=== PATIENT | female | born 1980 | race Two or more races ===

== ENCOUNTER → 2018-06-30 | Outpatient (CLI) | payer MEDICAID ==
[2018-06-30 14:08] LABS: ABSOLUTE EOSINOPHILS # (AUTO) 0.1 10^3/uL (0.0-0.6); ABSOLUTE LYMPHOCYTES (AUTO) 1.9 10^3/uL (0.5-4.7); ABSOLUTE MONOCYTES (AUTO) 0.5 10^3/uL (0.1-1.4); ABSOLUTE NEUT (AUTO) 5.5 10^3/uL (1.7-8.2); BASOPHILS % (AUTO) 0.2 % (0-2); EOSINOPHILS % (AUTO) 1.4 % (0-6); HEMATOCRIT 44.6 % (36.0-47.0); HEMOGLOBIN 15.2 g/dL (12.0-15.5); LYMPHOCYTES % (AUTO) 23.5 % (13-45); MEAN CORPUSCULAR HEMOGLOBIN 32.6 pg (27.0-33.4); MEAN CORPUSCULAR HGB CONC 34.1 g/dL (32.0-36.0); MEAN CORPUSCULAR VOLUME 95 fl (80-97); PLATELET COUNT 276 10^3/uL (150-450); RED BLOOD COUNT 4.68 10^6/uL (3.72-5.28); RED CELL DISTRIBUTION WIDTH 13.6 % (11.5-14.0); SEGMENTED NEUTROPHILS % (AUTO) 68.9 % (42-78); TOTAL CELLS COUNTED % (AUTO) 100 %; WHITE BLOOD COUNT 7.9 10^3/uL (4.0-10.5)
[2018-06-30 14:32] LABS: ALANINE AMINOTRANSFERASE 28 U/L (9-52); ALBUMIN 4.1 g/dL (3.5-5.0); ALKALINE PHOSPHATASE 107 U/L (38-126); ANION GAP 13 (5-19); ASPARTATE AMINO TRANSFERASE 18 U/L (14-36); BILIRUBIN,DIRECT 0.3 mg/dL (0.0-0.4); BILIRUBIN,TOTAL 0.6 mg/dL (0.2-1.3); BLOOD UREA NITROGEN 15 mg/dL (7-20); CALCIUM 9.6 mg/dL (8.4-10.2); CARBON DIOXIDE 26 mmol/L (22-30); CHLORIDE 103 mmol/L (98-107); GLUCOSE 118 mg/dL (75-110); SODIUM 142.2 mmol/L (137-145); TOTAL PROTEIN 7.5 g/dL (6.3-8.2)
--- NOTE | 2018-06-30 14:54 | RADIOLOGY REPORT (SQ) ---
EXAM DESCRIPTION: CHEST SINGLE VIEW COMPLETED DATE/TIME: 06/30/2018 2:43 pm REASON FOR STUDY: HYPOXEMIA COMPARISON: AP chest 09/11/2013, 11/02/2012, 01/12/2010 EXAM PARAMETERS: NUMBER OF VIEWS: One view. TECHNIQUE: Single frontal radiographic view of the chest acquired. RADIATION DOSE: NA LIMITATIONS: The thorax is distorted by profound convex leftward lower thoracic curvature FINDINGS: LUNGS AND PLEURA: Thorax is distorted by convex leftward thoracic curvature. Lungs are gr ossly clear. No pleural effusion or pneumothorax. MEDIASTINUM AND HILAR STRUCTURES: No masses. Contour normal. HEART AND VASCULAR STRUCTURES: Heart normal in size. Normal vasculature. BONES: No acute findings. HARDWARE: None in the chest. OTHER: No other significant finding. IMPRESSION: No acute findings TECHNICAL DOCUMENTATION: JOB ID: [id number] [employer]- All Rights Reserved Reading location - IP/workstation name: [email or web address]
== END ==
LOC: OD 13:23
PROVIDERS: ATTEND Specialist
DX: R09.02 Hypoxemia (principal); G40.909 Epilepsy, unspecified, not intractable, without status epilepticus; Z79.899 Other long term (current) drug therapy
CPT/HCPCS: 36415; 71045; 80053; 80203; 85025

== ENCOUNTER → 2018-08-01 | Outpatient (CLI) | payer MEDICAID ==
[2018-08-01 16:21] LABS: ABSOLUTE BASOPHILS # (AUTO) 0.1 10^3/uL (0.0-0.2); ABSOLUTE EOSINOPHILS # (AUTO) 0.1 10^3/uL (0.0-0.6); ABSOLUTE LYMPHOCYTES (AUTO) 1.9 10^3/uL (0.5-4.7); ABSOLUTE MONOCYTES (AUTO) 0.4 10^3/uL (0.1-1.4); ABSOLUTE NEUT (AUTO) 6.3 10^3/uL (1.7-8.2); BASOPHILS % (AUTO) 0.9 % (0-2); EOSINOPHILS % (AUTO) 1.1 % (0-6); HEMATOCRIT 45.5 % (36.0-47.0); HEMOGLOBIN 15.3 g/dL (12.0-15.5); LYMPHOCYTES % (AUTO) 21.9 % (13-45); MEAN CORPUSCULAR HEMOGLOBIN 32.5 pg (27.0-33.4); MEAN CORPUSCULAR HGB CONC 33.7 g/dL (32.0-36.0); MEAN CORPUSCULAR VOLUME 96 fl (80-97); MONOCYTES % (AUTO) 4.7 % (3-13); PLATELET COUNT 246 10^3/uL (150-450); RED BLOOD COUNT 4.72 10^6/uL (3.72-5.28); RED CELL DISTRIBUTION WIDTH 13.4 % (11.5-14.0); SEGMENTED NEUTROPHILS % (AUTO) 71.4 % (42-78); TOTAL CELLS COUNTED % (AUTO) 100 %; WHITE BLOOD COUNT 8.8 10^3/uL (4.0-10.5)
--- NOTE | 2018-08-01 16:25 | RADIOLOGY REPORT (SQ) ---
EXAM DESCRIPTION: CHEST SINGLE VIEW COMPLETED DATE/TIME: 08/01/2018 4:11 pm REASON FOR STUDY: COUGH COMPARISON: 06/30/2018 EXAM PARAMETERS: NUMBER OF VIEWS: One view. TECHNIQUE: Single frontal radiographic view of the chest acquired. RADIATION DOSE: NA LIMITATIONS: Study is limited due to the deformities of the bony thorax. Study is also limited as th e patient has made a shallow inspiration. FINDINGS: LUNGS AND PLEURA: No obvious airspace consolidations or pleural effusions are identified. MEDIASTINUM AND HILAR STRUCTURES: The configuration of the heart mediastinal structures is unchanged. HEART AND VASCULAR STRUCTURES: The configuration of the heart mediastinal structures is unchanged. BONES: No acute findings. HARDWARE: None in the chest. OTHER: No other significant finding. IMPRESSION: Limited study due to the bony deformity of the bony thorax. No significant interval kary nges compared to the previous study. No definite acute findings. TECHNICAL DOCUMENTATION: JOB ID: [id number] [employer]- All Rights Reserved Reading location - IP/workstation name: [email or web address]
[2018-08-01 16:35] LABS: A TYPE INFLUENZA AG NEGATIVE (NEGATIVE); B INFLUENZA AG NEGATIVE (NEGATIVE)
[2018-08-01 16:43] LABS: ANION GAP 9 (5-19); BLOOD UREA NITROGEN 8 mg/dL (7-20); CALCIUM 9.2 mg/dL (8.4-10.2); CARBON DIOXIDE 26 mmol/L (22-30); CHLORIDE 102 mmol/L (98-107); GLUCOSE 102 mg/dL (75-110); POTASSIUM 3.9 mmol/L (3.6-5.0); SODIUM 136.9 mmol/L (137-145)
== END ==
LOC: OD 15:43
PROVIDERS: ATTEND Family Medicine
DX: J39.9 Disease of upper respiratory tract, unspecified (principal); R05 Cough
CPT/HCPCS: 36415; 71045; 80048; 85025; 87804

== ENCOUNTER → 2018-10-11 | Outpatient (CLI) | payer MEDICAID ==
--- NOTE | 2018-10-11 17:13 | RADIOLOGY REPORT (SQ) ---
EXAM DESCRIPTION: CHEST SINGLE VIEW COMPLETED DATE/TIME: 10/11/2018 5:05 pm REASON FOR STUDY: FLU-LIKE SYMPTOMS COMPARISON: 08/01/2018 EXAM PARAMETERS: NUMBER OF VIEWS: One view. TECHNIQUE: Single frontal radiographic view of the chest acquired. RADIATION DOSE: NA LIMITATIONS: None. FINDINGS: LUNGS AND PLEURA: Extensive left-sided airspace disease new from prior study. MEDIASTINUM AND HILAR STRUCTURES: No masses. Contour normal. HEART AND VASCULAR STRUCTURES: Unchanged. BONES: Unchanged. HARDWARE: None in the chest. OTHER: No other significant finding. IMPRESSION: Extensive left-sided airspace disease new from prior study. TECHNICAL DOCUMENTATION: JOB ID: [id number] [employer]- All Rights Reserved Reading location - IP/workstation name: [email or web address]
[2018-10-11 18:02] LABS: ALANINE AMINOTRANSFERASE 34 U/L (9-52); ALBUMIN 4.3 g/dL (3.5-5.0); ALKALINE PHOSPHATASE 91 U/L (38-126); ANION GAP 12 (5-19); ASPARTATE AMINO TRANSFERASE 28 U/L (14-36); BILIRUBIN,DIRECT 0.4 mg/dL (0.0-0.4); BILIRUBIN,TOTAL 0.4 mg/dL (0.2-1.3); BLOOD UREA NITROGEN 8 mg/dL (7-20); CALCIUM 9.4 mg/dL (8.4-10.2); CARBON DIOXIDE 29 mmol/L (22-30); CHLORIDE 96 mmol/L (98-107); GLUCOSE 118 mg/dL (75-110); POTASSIUM 4.2 mmol/L (3.6-5.0); SODIUM 137.4 mmol/L (137-145); TOTAL PROTEIN 7.5 g/dL (6.3-8.2)
[2018-10-11 18:04] LABS: HEMATOCRIT 45.5 % (36.0-47.0); HEMOGLOBIN 15.6 g/dL (12.0-15.5); MEAN CORPUSCULAR HEMOGLOBIN 32.5 pg (27.0-33.4); MEAN CORPUSCULAR HGB CONC 34.2 g/dL (32.0-36.0); MEAN CORPUSCULAR VOLUME 95 fl (80-97); PLATELET COUNT 255 10^3/uL (150-450); RED BLOOD COUNT 4.79 10^6/uL (3.72-5.28); RED CELL DISTRIBUTION WIDTH 13.2 % (11.5-14.0); WHITE BLOOD COUNT 8.2 10^3/uL (4.0-10.5)
[2018-10-11 18:46] LABS: ABSOLUTE LYMPHOCYTES# (MANUAL) 1.4 10^3/uL (0.5-4.7); ABSOLUTE MONOCYTES # (MANUAL) 1.6 10^3/uL (0.1-1.4); BASOPHILS % (MANUAL) 0 % (0-2); EOSINOPHILS % (MANUAL) 2 % (0-6); LYMPHOCYTES % (MANUAL) 13 % (13-45); MONOCYTES % (MANUAL) 20 % (3-13); SEGMENTED NEUTROPHILS % (MAN) 61 % (42-78); TOTAL CELLS COUNTED 100
[2018-10-11 18:48] LABS: OVALOCYTES SLIGHT; POIKILOCYTOSIS SLIGHT; TOXIC GRANULATION SLIGHT; TOXIC VACUOLATION PRESENT
[2018-10-11 18:49] LABS: PLATELET COMMENT ADEQUATE
== END ==
LOC: OD 16:37
PROVIDERS: ATTEND Family Medicine
DX: J98.4 Other disorders of lung (principal); R68.89 Other general symptoms and signs
CPT/HCPCS: 36415; 71045; 80053; 85025

== ENCOUNTER 2018-10-13 10:05 | Inpatient (IN) | payer MEDICAID ==
[2018-10-13] MEDS ORDERED: NORMAL SALINE 1000 ML 2,000 ML IV ONE (10:08)
[2018-10-13] MEDS ORDERED: RINGERS SOLUTION,LACTATED 500 ML IV ONE (10:24)
[2018-10-13] MEDS ORDERED: IPRATROPIUM/ALBUTEROL 0.5-2.5 MG/3 ML AMPUL NEB ONE (10:26)
[2018-10-13] MEDS ORDERED: ACETAMINOPHEN 650 MG SUPP.RECT PR ONE (10:34)
[2018-10-13 11:15] LABS: VENOUS BLOOD BASE EXCESS 1.1 mmol/L; VENOUS BLOOD HCO3 25.9 mmol/L (20-32); VENOUS BLOOD PCO2 41.8 mmHg (35-63); VENOUS BLOOD PH 7.41 (7.30-7.42)
[2018-10-13 11:29] LABS: ALANINE AMINOTRANSFERASE 38 U/L (9-52); ALBUMIN 3.9 g/dL (3.5-5.0); ALKALINE PHOSPHATASE 101 U/L (38-126); ANION GAP 15 (5-19); ASPARTATE AMINO TRANSFERASE 28 U/L (14-36); BILIRUBIN,DIRECT 0.2 mg/dL (0.0-0.4); BILIRUBIN,TOTAL 0.2 mg/dL (0.2-1.3); BLOOD UREA NITROGEN 8 mg/dL (7-20); CALCIUM 8.9 mg/dL (8.4-10.2); CARBON DIOXIDE 24 mmol/L (22-30); CHLORIDE 97 mmol/L (98-107); GLUCOSE 143 mg/dL (75-110); POTASSIUM 3.8 mmol/L (3.6-5.0); SODIUM 135.8 mmol/L (137-145); TOTAL PROTEIN 6.9 g/dL (6.3-8.2)
[2018-10-13 12:01] LABS: HEMATOCRIT 41.5 % (36.0-47.0); HEMOGLOBIN 14.1 g/dL (12.0-15.5); MEAN CORPUSCULAR HEMOGLOBIN 32.5 pg (27.0-33.4); MEAN CORPUSCULAR HGB CONC 33.9 g/dL (32.0-36.0); MEAN CORPUSCULAR VOLUME 96 fl (80-97); PLATELET COUNT 230 10^3/uL (150-450); RED BLOOD COUNT 4.33 10^6/uL (3.72-5.28); RED CELL DISTRIBUTION WIDTH 13.2 % (11.5-14.0); WHITE BLOOD COUNT 4.9 10^3/uL (4.0-10.5)
[2018-10-13 12:04] LABS: INTERNATIONAL RATION (INR) 0.85; PROTHROMBIN TIME 12.1 SEC (11.4-15.4)
[2018-10-13 12:29] LABS: ABSOLUTE MONOCYTES # (MANUAL) 0.5 10^3/uL (0.1-1.4); ABSOLUTE NEUTROPHILS# (MANUAL) 3.4 10^3/uL (1.7-8.2); BASOPHILS % (MANUAL) 0 % (0-2); EOSINOPHILS % (MANUAL) 0 % (0-6); LYMPHOCYTES % (MANUAL) 18 % (13-45); MONOCYTES % (MANUAL) 11 % (3-13); SEGMENTED NEUTROPHILS % (MAN) 69 % (42-78); TOTAL CELLS COUNTED 100
[2018-10-13 12:30] LABS: PLATELET COMMENT ADEQUATE; RBC MORPHOLOGY COMMENT NORMO-CYTIC/CHROMIC
--- NOTE | 2018-10-13 12:49 | RADIOLOGY REPORT (SQ) ---
EXAM DESCRIPTION: CHEST SINGLE VIEW COMPLETED DATE/TIME: 10/13/2018 12:36 pm REASON FOR STUDY: bed 10 sepsis protocol COMPARISON: Chest films 05/20/2011, 11/02/2012, 09/11/2013, 06/30/2018, 08/01/2018, 10/11/2018 EXAM PARAMETERS: NUMBER OF VIEWS: One view. TECHNIQUE: Single frontal radiographic view of the chest acquired. RADIATION DOSE: NA LIMITATIONS: Chest is distorted by profound convex leftward scoliosis FINDINGS: LUNGS AND PLEURA: No acute infiltrates. No pleural effusion or pneumothorax. MEDIASTINUM AND HILAR STRUCTURES: No masses. Contour normal. HEART AND VASCULAR STRUCTURES: Heart normal in size. Normal vasculature. BONES: Pronounced convex leftward thoracic curvature. HARDWARE: Gastrostomy tube below the hemidiaphragms. OTHER: No other significant finding. IMPRESSION: No focal infiltrates TECHNICAL DOCUMENTATION: JOB ID: [id number] [employer]- All Rights Reserved Reading location - IP/workstation name: [email or web address]
[2018-10-13] MEDS ORDERED: ALBUTEROL SULFATE 0.083% NEB 2.5 MG/3 ML AMPUL NEB ONE (13:06)
[2018-10-13] MEDS ORDERED: METHYLPREDNISOLONE INJ 125 MG/2 ML SDV IV ONE (13:06)
[2018-10-13 13:12] LABS: AMORPHOUS SEDIMENT,URINE TRACE /HPF; APPEARANCE,URINE SLIGHTLY-CLOUDY; BILIRUBIN,URINE NEGATIVE (NEGATIVE); COLOR,URINE YELLOW; GLUCOSE, URINE NEGATIVE (NEGATIVE); KETONES,URINE NEGATIVE (NEGATIVE); LEUKOCYTE ESTERASE,URINE NEGATIVE (NEGATIVE); NITRITE,URINE NEGATIVE (NEGATIVE); PROTEIN,URINE NEGATIVE (NEGATIVE); URINE SPECIFIC GRAVITY 1.009; UROBILINOGEN,URINE NEGATIVE mg/dL (<2.0)
[2018-10-13] MEDS ORDERED: ACETAMINOPHEN 650 MG SUPP.RECT PR PRN (13:15)
--- NOTE | 2018-10-13 15:07 | ER Document Report ---
Entered by OSMAN VEE SCRIBE 10/13/18 1042 Acting as scribe for:JULIAN CHAPARRO MD ED General - General Stated Complaint: POSSIBLE RESPIRATORY DISTRESS Time Seen by Provider: 10/13/18 10:08 Mode of Arrival: Wheelchair Notes: Patient is a 38 year old female with cerebal palsy, peg tube, epilepsy presents to the emergency department from [facility] accompanied by nurse caregiver complaining of difficulty breathing. Nurse states the patient was diagnosed with Bronchitis on 10/10/18 and placed on Septra. She proceeded to have a chest xray done on 10/11 which showed extensive airway disease. She was subsequently placed on Omnicef and had her DuoNeb treatments increased to every 8 hours. Nurse states the patient began to have difficulty breathing and noticed diminished breath sounds in the bases of the patient's lungs this morning. TRAVEL OUTSIDE OF THE [place] IN LAST 30 DAYS: No - Related Data Allergies/Adverse Reactions: No Known Allergies Allergy (Unverified 11/02/12 21:50) Past Medical History - General Information source: Outside Facility Records - Nurse Caregiver present - Social History Smoking Status: Never Smoker Cigarette use (# per day): No Chew tobacco use (# tins/day): No Smoking Education Provided: No Frequency of alcohol use: None Family History: Reviewed & Not Pertinent Neurological Medical History: Reports: Hx Seizures, Other - Cerebral palsy GI Medical History: Reports: Hx Gastroesophageal Reflux Disease Musculoskeletal Medical History: Reports Hx Musculoskeletal Deformity - Kyphosco liosis - Immunizations Hx Diphtheria, Pertussis, Tetanus Vaccination: Yes Review of Systems - Review of Systems Constitutional: No symptoms reported EENT: No symptoms reported Cardiovascular: No symptoms reported Respiratory: See HPI Gastrointestinal: No symptoms reported Genitourinary: No symptoms reported Female Genitourinary: No symptoms reported Musculoskeletal: No symptoms reported Skin: No symptoms reported Hematologic/Lymphatic: No symptoms reported Neurological/Psychological: No symptoms reported -: Yes All other systems reviewed and negative Physical Exam - Vital signs Vitals: Resp Pulse Ox 20 95 10/13/18 10:08 10/13/18 10:08 - Notes Notes: GENERAL: Alert, severe kyphoscoliosis. Patient is a very short stature with small limbs. HEAD: Normocephalic, atraumatic. EYES: Pupils equal, round, and reactive to light. Extraocular movements intact. ENT: Oral mucosa moist, tongue midline. NECK: Full range of motion. Supple. Trachea midline. LUNGS: Tachypneic, laboured breathing, retractions. Diminished breath sounds in the bases. Wheezes and rhonchi. Patient is using chest and abdomen muscles in order to breathe in and to push air out. She is working quite hard to move air. There are copious secretions in the oropharynx, which is normal for her according to the caretakers. They do suction her regularly at home. HEART: Tachycardia, heart rate approximately 136. ABDOMEN: Soft, peg tube in the LLQ. Non-distended. Bowel sounds present in all 4 quadrants. No guarding, rigidity, or rebound. EXTREMITIES: Moves all 4 extremities spontaneously. Contractures of all extremities. NEUROLOGICAL:Alert, at baseline. PSYCH: Normal affect, normal mood. 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 SKIN: Warm, dry, normal turgor. No rashes or lesions noted. BACK: Severe kyphoscoliosis. Course - Re-evaluation Re-evalutation: 10/13/18 13:36 Patient's chest x-ray does not show an acute disease process according to the radiologist. White blood cell count is not elevated and does not have a shift. The patient seems to be struggling to move air in and out along with audible wheezes. These findings would suggest this is most likely a viral exacerbation of her reactive airways disease. - Vital Signs Vital signs: Temp Pulse Resp BP Pulse Ox 21 H 113/60 92 10/13/18 12:01 10/13/18 12:00 10/13/18 12:01 - Laboratory Result Diagrams: 10/13/18 11:48 10/13/18 10:55 Laboratory results interpreted by me: 10/13/18 10/13/18 10:55 12:40 Sodium 135.8 L Chloride 97 L Creatinine 0.30 L Glucose 143 H Urine Ascorbic Acid 40 H - Diagnostic Test Radiology reviewed: Reports reviewed - Chest x-ray done today was read by Dr. Deleon who does not feel there is any infiltrate or acute changes compared to previous films going back as far as 2010. - Consults Dr. Estevez Time consulted: 13:08 Consulted provider: will see as inpatient - Requests telemetry admission. He did call back requesting a CTA chest, but her IV is not likely suitable for a contrast bolus. Will get a d-dimer first and if it is elevated, then consult with the radiologist. Critical Care Note - Critical Care Note Total time excluding time spent on procedures (mins): 45 Discharge - Discharge Clinical Impression: Respiratory distress, Tachycardia Cerebral palsy Qualifiers: Cerebral palsy type: unspecified type Qualified Code(s): G80.9 - Cerebral palsy, unspecified Reactive airway disease Qualifiers: Asthma severity: moderate Asthma persistence: persistent Asthma complication type: with acute exacerbation Qualified Code(s): J45.41 - Moderate persistent asthma with (acute) exacerbation Condition: Fair Disposition: ADMITTED INPATIENT Admitting Provider: [facility] Admitted: Telemetry I personally performed the services described in the documentation, reviewed and edited the documentation which was dictated to the scribe in my presence, and it accurately records my words and actions.
--- NOTE | 2018-10-13 16:58 | RADIOLOGY REPORT (SQ) ---
EXAM DESCRIPTION: CT CHEST WITHOUT COMPLETED DATE/TIME: 10/13/2018 4:37 pm REASON FOR STUDY: respiratory distress COMPARISON: 11/24/2006 TECHNIQUE: CT scan performed of the chest without intravenous contrast. Images reviewed with lung, soft tissue and bone windows. Reconstructed coronal and sagittal MPR images reviewed. All images st ored on PACS. All CT scanners at this facility use dose modulation, iterative reconstruction, and/or weight based d osing when appropriate to reduce radiation dose to as low as reasonably achievable (ALARA). [facility]: Dose Right [facility]: CareDose [facility]: Dose Right [facility]: Teradose 4D [facility]: Smart [employer] RADIATION DOSE: CT Rad equipment meets quality standard of care and radiation dose reduction techniq ues were employed. CTDIvol: 10.0 mGy. DLP: 258 mGy-cm. mGy. LIMITATIONS: No technical limitations. FINDINGS: LUNGS AND PLEURA: Chronic decreased volume. There is considerable opacification in the le ft upper lobe with air bronchograms. Ground-glass opacification is present in the right upper lobe a nd in the right lower lobe. HILAR AND MEDIASTINAL STRUCTURES: No identified masses or abnormal nodes. No obvious aneurysm. HEART AND VASCULAR STRUCTURES: No aneurysm. No pericardial effusion. UPPER ABDOMEN: No significant findings. Limited exam. THYROID AND OTHER SOFT TISSUES: No masses. No adenopathy. BONES: Severe scoliosis. No osseous lesions. HARDWARE: None in the chest. OTHER: No other significant findings. IMPRESSION: Chronic hypo aeration of the lungs secondary to the configuration of the thorax because of the scoliosis. Cannot exclude acute an left upper lobe pneumonia. TECHNICAL DOCUMENTATION: JOB ID: [id number] Quality ID # [id number]: Final reports with documentation of one or more dose reduction techniques (e.g., Au tomated exposure control, adjustment of the mA and/or kV according to patient size, use of iterative reconstruction technique) 2010 [employer]- All Rights Reserved Reading location - IP/workstation name: [email or web address]
[2018-10-13] MEDS ORDERED: DIAZEPAM 10 MG/2 ML RECTAL GEL KIT PR PRN (17:03)
[2018-10-13] MEDS ORDERED: CHLOR MAL GT PRN (17:03)
[2018-10-13] MEDS ORDERED: DEXTROMETHORPHAN HBR GT PRN (17:03)
[2018-10-13] MEDS ORDERED: [UNRECOGNIZED DRUG - OTHER] GT PRN (17:03)
[2018-10-13] MEDS: METHYLPREDNISOLONE INJ 40 MG/1 ML SDV IV SCH ×2 (17:09→22:24)
[2018-10-13] MEDS: NORMAL SALINE 1000 ML 1,000 ML IV PRN (17:12)
--- NOTE | 2018-10-13 17:36 | PDOC H&P ---
History of Present Illness Admission Date/PCP: OLIVERIO BABIN MD Patient complains of: Respiratory distressed History of Present Illness: KISHAN GUADARRAMA is a 38 year old female This is a 38-year-old female is with a significant history of cerebral palsy severe mental retardation's any seizures disorder brought to the office last weeks with a complaining of a fever cough congestions have a flu test was done was negative in office patients have a chest x-ray blood work suggested questionable pneumonia possible aspiration start the patient on a Bactrim DS brought to the emergency department with the breathing more heavily and initial workup including the chest x-ray blood work is all stable but according to the ER patient still breathing heavily and decided to admit for exacerbation of asthma Patient is giving the Solu-Medrol in the ER and the respiratory treatments At this point patient admitting in a telemetry bed for further evaluations for this respiratory distressed we will order the CT angiogram to rule out other etiology As per the discussed with the caregiver patient is currently a DNR Patient have a significant history of the encephalopathy status post C-sections delivery due to the maternal urinary tract infections history of the 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 and chronic seizures disorders Past Medical History Neurological Medical History: Reports: Seizures GI Medical History: Reports: Gastroesophageal Reflux Disease Social History Information Source: Legal Guardian Lives with: Prison Smoking Status: Never Smoker Frequency of Alcohol Use: None Hx Recreational Drug Use: No Hx Prescription Drug Abuse: No Family History Parental Family History Reviewed: Yes Children Family History Reviewed: Yes Sibling(s) Family History Reviewed.: Yes Medication/Allergy Home Medications: Diazepam [Diastat Acudial] 1 each RC Q6HP PRN 11/02/12 Fluconazole [Diflucan] 150 mg GT Q7D PRN 11/02/12 Hyoscyamine Sulfate [Hyosyne] 0.25 mg GT Q6H 11/02/12 Metoclopramide HCl [Reglan Oral Soln 10 Mg/10 Ml Udcup] 10 mg GT QID 11/02/12 Polyethylene Glycol 3350 [Miralax Powder 17 Gm/Packet] 17 gm GT DAILY 11/02/12 Zonisamide [Zonegran 100 mg Capsule] 300 mg GT Q12 11/02/12 Albuterol Sulfate [Ventolin 0.083% Neb 2.5 mg/3 mL Ampul] 1 vial IH RTQ4HP PRN 10/13/18 Cefdinir 300 mg PO Q12 10/13/18 Cholecalciferol (Vitamin D3) [Vitamin D3] 1,000 unit GT DAILY 10/13/18 Dextromethorphan HBr/Chlor-Mal [Robitussin Cough-Cold Liquid] 15 ml GT BID PRN 10/13/18 Fluoride (Sodium) [Prevident 5000] 1 ml PO Q8 10/13/18 Ibuprofen [Child Ibuprofen] 400 mg GT Q6HP PRN 10/13/18 Ipratropium/Albuterol Sulfate [Duoneb 3 ml Ampul] 1 vial IH RTQ8HP PRN 10/13/18 Ipratropium/Albuterol Sulfate [Duoneb 3 ml Ampul] 3 ml IH RTBID 10/13/18 Lansoprazole [Prevacid 30 Mg Odt Tablet] 30 mg GT DAILY 10/13/18 Phenobarbital [Phenobarbital 97.2 mg Tablet] 97.2 mg GT QHS 10/13/18 Sulfamethoxazole/Trimethoprim [Sulfatrim 800-160 mg/20 ml Rosa] 20 ml GT BID 10/13/18 Allergies/Adverse Reactions: No Known Allergies Allergy (Unverified 11/02/12 21:50) Review of Systems ROS unobtainable: Due to mental status All systems: reviewed and no additional remarkable complaints except as stated Physical Exam Vital Signs: Temp Pulse Resp BP Pulse Ox 21 H 113/60 92 10/13/18 12:01 10/13/18 12:00 10/13/18 12:01 Intake & Output 10/12/18 10/13/18 10/14/18 06:59 06:59 06:59 Output Total 600 Balance -600 Physical Exam: Patient is a profound mental retardation and a spasticity's and contracture in the 4 limbs General appearance: PRESENT: mild distress Respiratory exam: PRESENT: accessory muscle use, decreased breath sounds Cardiovascular exam: PRESENT: +S1, systolic murmur, tachycardia GI/Abdominal exam: PRESENT: normal bowel sounds Additonal comments: GJ tube is present Neurological exam: PRESENT: alert, altered Skin exam: PRESENT: dry Results Laboratory Results: 10/13/18 11:48 10/13/18 10:55 10/13/18 10/13/18 10/13/18 10:55 10:55 10:55 WBC Cancelled RBC Cancelled Hgb Cancelled Hct Cancelled MCV Cancelled MCH Cancelled MCHC Cancelled RDW Cancelled Plt Count Cancelled Seg Neutrophils % Cancelled Lymphocytes % Cancelled Monocytes % Cancelled Eosinophils % Cancelled Basophils % Cancelled Absolute Neutrophils Cancelled Absolute Lymphocytes Cancelled Absolute Monocytes Cancelled Absolute Eosinophils Cancelled Absolute Basophils Cancelled VBG pH VBG pCO2 VBG HCO3 VBG Base Excess Sodium 135.8 L Potassium 3.8 Chloride 97 L Carbon Dioxide 24 Anion Gap 15 BUN 8 Creatinine 0.30 L Est GFR ( Amer) > 60 Est GFR (Non-Af Amer) > 60 Glucose 143 H Lactic Acid 2.1 Calcium 8.9 Total Bilirubin 0.2 AST 28 ALT 38 Alkaline Phosphatase 101 Total Protein 6.9 Albumin 3.9 Urine Color Urine Appearance Urine pH Ur Specific [place] Urine Protein Urine Glucose (UA) Urine Ketones Urine Blood Urine Nitrite Ur Leukocyte Esterase Urine WBC (Auto) 10/13/18 10/13/18 10/13/18 10:55 11:08 11:48 WBC Cancelled 4.9 RBC Cancelled 4.33 Hgb Cancelled 14.1 Hct Cancelled 41.5 MCV Cancelled 96 MCH Cancelled 32.5 MCHC Cancelled 33.9 RDW Cancelled 13.2 Plt Count Cancelled 230 Seg Neutrophils % Cancelled Not Reportable Lymphocytes % Cancelled Not Reportable Monocytes % Cancelled Not Reportable Eosinophils % Cancelled Not Reportable Basophils % Cancelled Not Reportable Absolute Neutrophils Cancelled Not Reportable Absolute Lymphocytes Cancelled Not Reportable Absolute Monocytes Cancelled Not Reportable Absolute Eosinophils Cancelled Not Reportable Absolute Basophils Cancelled Not Reportable VBG pH 7.41 VBG pCO2 41.8 VBG HCO3 25.9 VBG Base Excess 1.1 Sodium Potassium Chloride Carbon Dioxide Anion Gap BUN Creatinine Est GFR ( Amer) Est GFR (Non-Af Amer) Glucose Lactic Acid Calcium Total Bilirubin AST ALT Alkaline Phosphatase Total Protein Albumin Urine Color Urine Appearance Urine pH Ur Specific [place] Urine Protein Urine Glucose (UA) Urine Ketones Urine Blood Urine Nitrite Ur Leukocyte Esterase Urine WBC (Auto) 10/13/18 12:40 WBC RBC Hgb Hct MCV MCH MCHC RDW Plt Count Seg Neutrophils % Lymphocytes % Monocytes % Eosinophils % Basophils % Absolute Neutrophils Absolute Lymphocytes Absolute Monocytes Absolute Eosinophils Absolute Basophils VBG pH VBG pCO2 VBG HCO3 VBG Base Excess Sodium Potassium Chloride Carbon Dioxide Anion Gap BUN Creatinine Est GFR ( Amer) Est GFR (Non-Af Amer) Glucose Lactic Acid Calcium Total Bilirubin AST ALT Alkaline Phosphatase Total Protein Albumin Urine Color YELLOW Urine Appearance SLIGHTLY-CLOUDY Urine pH 6.0 Ur Specific [place] 1.009 Urine Protein NEGATIVE Urine Glucose (UA) NEGATIVE Urine Ketones NEGATIVE Urine Blood NEGATIVE Urine Nitrite NEGATIVE Ur Leukocyte Esterase NEGATIVE Urine WBC (Auto) 2 Impressions: Chest X-Ray 10/13/18 10:06 IMPRESSION: No focal infiltrates Assessment & Plan - Diagnosis (1) Respiratory distress Is this a current diagnosis for this admission?: Yes Plan: With significant expiratory wheezing and fever most likely possible aspirations pneumonia Will get the Xopenex nebulizer We will consult the pulmonary Patients to receive the steroid due to the wheezing We will start the IV antibiotic Get the all culture (2) Aspiration pneumonia Qualifiers: Lung location: unspecified part of lung Is this a current diagnosis for this admission?: Yes Plan: Start the patient on the cefepime and also clindamycin (3) Cerebral palsy Qualifiers: Cerebral palsy type: unspecified type Qualified Code(s): G80.9 - Cerebral palsy, unspecified Is this a current diagnosis for this admission?: Yes (4) Mental and behavioral problem Is this a current diagnosis for this admission?: Yes (5) Uses feeding tube Is this a current diagnosis for this admission?: Yes Plan: Continues to tube feeding (6) Tachycardia Is this a current diagnosis for this admission?: Yes Plan: Most likely due to the possible underlying sepsis versus respiratory distressed We will get the CT angiogram to rule out the other etiology (7) Seizure disorder Is this a current diagnosis for this admission?: Yes Plan: Continues to current home medication - Time Time Spent: 30 to 50 Minutes Medications reviewed and adjusted accordingly: Yes Anticipated discharge: Other Within: Other - Inpatient Certification Based on my medical assessment, after consideration of the patient's comorbidities, presenting symptoms, or acuity I expect that the services needed warrant INPATIENT care.: Yes I certify that my determination is in accordance with my understanding of Medicare's requirements for reasonable and necessary INPATIENT services [42 CFR 412.3e].: Yes Medical Necessity: Failure to Improve With Outpatient Therapy, Significant Comorbidiites Make Outpatient Treatment Too Risky, Need For IV Fluids, Need for IV Antibiotics Post Hospital Care: D/C Rate Inserter Documentation - Plan Summary Plan Summary: Admit the patient in a telemetry bed As per the caregiver patient is currently DNR Will consult the pulmonary
[2018-10-13] MEDS: ENOXAPARIN SODIUM INJ 40 MG/0.4 ML DISP.SYRIN SUBCUT SCH (17:37)
[2018-10-13] MEDS: LEVALBUTEROL HCL NEB 0.63 MG/3 ML AMPUL NEB SCH ×2 (17:37→19:56)
[2018-10-13] MEDS ORDERED: [UNRECOGNIZED DRUG - OTHER] GT SCH (18:00)
[2018-10-13] MEDS ORDERED: TRIMETHOPRIM GT SCH (18:00)
[2018-10-13] MEDS ORDERED: SULFAMETHOXAZOLE GT SCH (18:00)
[2018-10-13] MEDS: POLYETHYLENE GLYCOL 3350 POWDER 17 GM/1 PACKET GT SCH (18:48)
[2018-10-13] MEDS: LANSOPRAZOLE 30 MG TAB.RAP.DR GT SCH (18:48)
[2018-10-13] MEDS: CHOLECALCIFEROL (D3) 1,000 UNIT TABLET GT SCH (18:49)
[2018-10-13] MEDS: CEFEPIME 1 GM/D5W RTU 1 GM/50 ML RTUPB IV SCH (19:48)
[2018-10-13] MEDS ORDERED: FLUORIDE SODIUM PO SCH (22:00)
--- NOTE | 2018-10-13 22:16 | EKG REPORT ---
SEVERITY:- ABNORMAL ECG - SINUS TACHYCARDIA RBBB AND LPFB INFERIOR Q WAVES, PROBABLY NORMAL VARIATION LATERAL Q WAVES, PROBABLY NORMAL VARIATION : Confirmed by: Mona Marquis 13-Oct-2018 22:15:49
[2018-10-13] MEDS: ZONISAMIDE 100 MG CAPSULE GT SCH (22:23)
[2018-10-13] MEDS: PHENOBARBITAL 97.2 MG TABLET GT SCH (22:23)
[2018-10-13] MEDS: FAMOTIDINE INJ/PF 20 MG/2 ML SDV IV SCH (22:24)
[2018-10-13] MEDS: DILTIAZEM HCL 30 MG TABLET PEG SCH (22:24)
[2018-10-13] MEDS: METOCLOPRAMIDE HCL ORAL SOLN 10 MG/10 ML UDCUP GT SCH (22:24)
[2018-10-14] MEDS: LEVALBUTEROL HCL NEB 0.63 MG/3 ML AMPUL NEB SCH ×6 (00:07→19:41)
[2018-10-14] MEDS: DILTIAZEM HCL 30 MG TABLET PEG SCH ×3 (05:41→22:27)
[2018-10-14] MEDS: CEFEPIME 1 GM/D5W RTU 1 GM/50 ML RTUPB IV SCH ×2 (05:41→17:43)
[2018-10-14] MEDS: METHYLPREDNISOLONE INJ 40 MG/1 ML SDV IV SCH ×3 (05:41→22:26)
[2018-10-14 05:53] LABS: ABSOLUTE LYMPHOCYTES (AUTO) 0.8 10^3/uL (0.5-4.7); ABSOLUTE MONOCYTES (AUTO) 0.2 10^3/uL (0.1-1.4); ABSOLUTE NEUT (AUTO) 2.8 10^3/uL (1.7-8.2); BASOPHILS % (AUTO) 0.2 % (0-2); HEMATOCRIT 35.7 % (36.0-47.0); HEMOGLOBIN 12.1 g/dL (12.0-15.5); LYMPHOCYTES % (AUTO) 21.4 % (13-45); MEAN CORPUSCULAR HEMOGLOBIN 32.6 pg (27.0-33.4); MEAN CORPUSCULAR VOLUME 96 fl (80-97); MONOCYTES % (AUTO) 4.5 % (3-13); PLATELET COUNT 231 10^3/uL (150-450); RED BLOOD COUNT 3.73 10^6/uL (3.72-5.28); RED CELL DISTRIBUTION WIDTH 13.3 % (11.5-14.0); SEGMENTED NEUTROPHILS % (AUTO) 73.9 % (42-78); TOTAL CELLS COUNTED % (AUTO) 100 %; WHITE BLOOD COUNT 3.9 10^3/uL (4.0-10.5)
[2018-10-14 06:19] LABS: ANION GAP 8 (5-19); BLOOD UREA NITROGEN 7 mg/dL (7-20); CALCIUM 8.1 mg/dL (8.4-10.2); CARBON DIOXIDE 24 mmol/L (22-30); CHLORIDE 108 mmol/L (98-107); GLUCOSE 119 mg/dL (75-110); POTASSIUM 4.5 mmol/L (3.6-5.0); SODIUM 139.5 mmol/L (137-145)
--- NOTE | 2018-10-14 08:32 | PDOC PROGRESS REPORT ---
Subjective Progress Note for:: 10/14/18 Subjective:: Patient is currently doing fair No fever overnight Patient's heart rate is running 120 range go up to 140 and start the patient on a Cardizem 30 mg Patient's blood pressures are 90 Difficult to measure due to the patient contracture positions According to the nursing staff otherwise patient stable Reason For Visit: RESPIRATORY DISTRESS Physical Exam Vital Signs: Temp Pulse Resp BP Pulse Ox 97.9 F 121 H 24 H 97/64 L 95 10/14/18 03:56 10/14/18 07:44 10/14/18 07:44 10/14/18 03:56 10/14/18 07:44 Intake & Output 10/13/18 10/14/18 10/15/18 06:59 06:59 06:59 Intake Total 1600 Output Total 600 Balance 1000 Weight 35.8 kg General appearance: PRESENT: no acute distress Eye exam: PRESENT: PERRLA Mouth exam: PRESENT: neck supple Respiratory exam: PRESENT: decreased breath sounds Cardiovascular exam: PRESENT: +S1, tachycardia GI/Abdominal exam: PRESENT: normal bowel sounds Additonal comments: Tube feeding is intact Neurological exam: PRESENT: alert Results Laboratory Results: 10/14/18 04:38 10/14/18 04:38 10/13/18 10/13/18 10/13/18 10:55 10:55 10:55 WBC Cancelled RBC Cancelled Hgb Cancelled Hct Cancelled MCV Cancelled MCH Cancelled MCHC Cancelled RDW Cancelled Plt Count Cancelled Seg Neutrophils % Cancelled Lymphocytes % Cancelled Monocytes % Cancelled Eosinophils % Cancelled Basophils % Cancelled Absolute Neutrophils Cancelled Absolute Lymphocytes Cancelled Absolute Monocytes Cancelled Absolute Eosinophils Cancelled Absolute Basophils Cancelled VBG pH VBG pCO2 VBG HCO3 VBG Base Excess Sodium 135.8 L Potassium 3.8 Chloride 97 L Carbon Dioxide 24 Anion Gap 15 BUN 8 Creatinine 0.30 L Est GFR ( Amer) > 60 Est GFR (Non-Af Amer) > 60 Glucose 143 H Lactic Acid 2.1 Calcium 8.9 Total Bilirubin 0.2 AST 28 ALT 38 Alkaline Phosphatase 101 Total Protein 6.9 Albumin 3.9 TSH Urine Color Urine Appearance Urine pH Ur Specific Braxton Urine Protein Urine Glucose (UA) Urine Ketones Urine Blood Urine Nitrite Ur Leukocyte Esterase Urine WBC (Auto) 02/28/19 02/28/19 02/28/19 10:55 10:55 11:08 WBC Cancelled RBC Cancelled Hgb Cancelled Hct Cancelled MCV Cancelled MCH Cancelled MCHC Cancelled RDW Cancelled Plt Count Cancelled Seg Neutrophils % Cancelled Lymphocytes % Cancelled Monocytes % Cancelled Eosinophils % Cancelled Basophils % Cancelled Absolute Neutrophils Cancelled Absolute Lymphocytes Cancelled Absolute Monocytes Cancelled Absolute Eosinophils Cancelled Absolute Basophils Cancelled VBG pH 7.41 VBG pCO2 41.8 VBG HCO3 25.9 VBG Base Excess 1.1 Sodium Potassium Chloride Carbon Dioxide Anion Gap BUN Creatinine Est GFR ( Amer) Est GFR (Non-Af Amer) Glucose Lactic Acid Calcium Total Bilirubin AST ALT Alkaline Phosphatase Total Protein Albumin TSH 1.02 Urine Color Urine Appearance Urine pH Ur Specific Braxton Urine Protein Urine Glucose (UA) Urine Ketones Urine Blood Urine Nitrite Ur Leukocyte Esterase Urine WBC (Auto) 10/13/18 10/13/18 10/13/18 11:48 12:40 19:17 WBC 4.9 RBC 4.33 Hgb 14.1 Hct 41.5 MCV 96 MCH 32.5 MCHC 33.9 RDW 13.2 Plt Count 230 Seg Neutrophils % Not Reportable Lymphocytes % Not Reportable Monocytes % Not Reportable Eosinophils % Not Reportable Basophils % Not Reportable Absolute Neutrophils Not Reportable Absolute Lymphocytes Not Reportable Absolute Monocytes Not Reportable Absolute Eosinophils Not Reportable Absolute Basophils Not Reportable VBG pH VBG pCO2 VBG HCO3 VBG Base Excess Sodium Potassium Chloride Carbon Dioxide Anion Gap BUN Creatinine Est GFR ( Amer) Est GFR (Non-Af Amer) Glucose Lactic Acid 0.9 Calcium Total Bilirubin AST ALT Alkaline Phosphatase Total Protein Albumin TSH Urine Color YELLOW Urine Appearance SLIGHTLY-CLOUDY Urine pH 6.0 Ur Specific Braxton 1.009 Urine Protein NEGATIVE Urine Glucose (UA) NEGATIVE Urine Ketones NEGATIVE Urine Blood NEGATIVE Urine Nitrite NEGATIVE Ur Leukocyte Esterase NEGATIVE Urine WBC (Auto) 2 10/14/18 10/14/18 04:38 04:38 WBC 3.9 L RBC 3.73 Hgb 12.1 Hct 35.7 L MCV 96 MCH 32.6 MCHC 34.0 RDW 13.3 Plt Count 231 Seg Neutrophils % 73.9 Lymphocytes % 21.4 Monocytes % 4.5 Eosinophils % 0.0 Basophils % 0.2 Absolute Neutrophils 2.8 Absolute Lymphocytes 0.8 Absolute Monocytes 0.2 Absolute Eosinophils 0.0 Absolute Basophils 0.0 VBG pH VBG pCO2 VBG HCO3 VBG Base Excess Sodium 139.5 Potassium 4.5 Chloride 108 H Carbon Dioxide 24 Anion Gap 8 BUN 7 Creatinine 0.22 L Est GFR ( Amer) > 60 Est GFR (Non-Af Amer) > 60 Glucose 119 H Lactic Acid Calcium 8.1 L Total Bilirubin AST ALT Alkaline Phosphatase Total Protein Albumin TSH Urine Color Urine Appearance Urine pH Ur Specific Braxton Urine Protein Urine Glucose (UA) Urine Ketones Urine Blood Urine Nitrite Ur Leukocyte Esterase Urine WBC (Auto) Impressions: Chest CT 10/13/18 00:00 IMPRESSION: Chronic hypo aeration of the lungs secondary to the configuration of the thorax because of the scoliosis. Cannot exclude acute an left upper lobe pneumonia. Chest X-Ray 10/13/18 10:06 IMPRESSION: No focal infiltrates Assessment & Plan - Diagnosis (1) Respiratory distress Is this a current diagnosis for this admission?: Yes Plan: Continues with Xopenex nebulizer treatments currently getting better (2) Aspiration pneumonia Qualifiers: Lung location: unspecified part of lung Is this a current diagnosis for this admission?: Yes Plan: Continues to IV antibiotic will wait for the all culture (3) Cerebral palsy Qualifiers: Cerebral palsy type: unspecified type Qualified Code(s): G80.9 - Cerebral palsy, unspecified Is this a current diagnosis for this admission?: Yes (4) Mental and behavioral problem Is this a current diagnosis for this admission?: Yes (5) Uses feeding tube Is this a current diagnosis for this admission?: Yes Plan: Start the tube feeding again (6) Tachycardia Is this a current diagnosis for this admission?: Yes Plan: Sinus tachycardia will continues to Cardizem 30 mg p.o. every 8 (7) Seizure disorder Is this a current diagnosis for this admission?: Yes Plan: Continues to current home medication - Time Time Spent with patient: 15-24 minutes Medications reviewed and adjusted accordingly: Yes Anticipated discharge: Other Within: Other - Plan Summary Plan Summary: Continues to IV fluid restart the tube feeding continuous IV antibiotic patient is currently a DNR
[2018-10-14] MEDS ORDERED: (PENDING PHARMACY ID) (Cholecalciferol (Vitamin D3) [Vitamin D3] 1,000 UNIT) GT SCH (10:00)
[2018-10-14] MEDS: METOCLOPRAMIDE HCL ORAL SOLN 10 MG/10 ML UDCUP GT SCH ×4 (11:45→22:27)
[2018-10-14] MEDS: POLYETHYLENE GLYCOL 3350 POWDER 17 GM/1 PACKET GT SCH (11:50)
[2018-10-14] MEDS: ZONISAMIDE 100 MG CAPSULE GT SCH ×2 (11:50→22:27)
[2018-10-14] MEDS: CHOLECALCIFEROL (D3) 1,000 UNIT TABLET GT SCH (11:50)
[2018-10-14] MEDS: LANSOPRAZOLE 30 MG TAB.RAP.DR GT SCH (11:50)
[2018-10-14] MEDS: ENOXAPARIN SODIUM INJ 40 MG/0.4 ML DISP.SYRIN SUBCUT SCH (11:51)
[2018-10-14] MEDS: FAMOTIDINE INJ/PF 20 MG/2 ML SDV IV SCH ×2 (11:51→22:27)
[2018-10-14] MEDS: NORMAL SALINE 1000 ML 1,000 ML IV PRN (17:44)
[2018-10-14] MEDS: PHENOBARBITAL 97.2 MG TABLET GT SCH (22:27)
[2018-10-15] MEDS: LEVALBUTEROL HCL NEB 0.63 MG/3 ML AMPUL NEB SCH ×7 (00:25→23:47)
[2018-10-15 05:07] LABS: ABSOLUTE LYMPHOCYTES (AUTO) 0.8 10^3/uL (0.5-4.7); ABSOLUTE MONOCYTES (AUTO) 0.3 10^3/uL (0.1-1.4); ABSOLUTE NEUT (AUTO) 3.5 10^3/uL (1.7-8.2); BASOPHILS % (AUTO) 0.2 % (0-2); HEMATOCRIT 34.1 % (36.0-47.0); HEMOGLOBIN 11.5 g/dL (12.0-15.5); LYMPHOCYTES % (AUTO) 17.1 % (13-45); MEAN CORPUSCULAR HEMOGLOBIN 32.5 pg (27.0-33.4); MEAN CORPUSCULAR HGB CONC 33.8 g/dL (32.0-36.0); MEAN CORPUSCULAR VOLUME 96 fl (80-97); MONOCYTES % (AUTO) 5.7 % (3-13); PLATELET COUNT 234 10^3/uL (150-450); RED BLOOD COUNT 3.54 10^6/uL (3.72-5.28); RED CELL DISTRIBUTION WIDTH 13.7 % (11.5-14.0); TOTAL CELLS COUNTED % (AUTO) 100 %; WHITE BLOOD COUNT 4.5 10^3/uL (4.0-10.5)
[2018-10-15] MEDS: CEFEPIME 1 GM/D5W RTU 1 GM/50 ML RTUPB IV SCH ×2 (05:20→17:31)
[2018-10-15] MEDS: METHYLPREDNISOLONE INJ 40 MG/1 ML SDV IV SCH ×3 (05:21→23:24)
[2018-10-15] MEDS: DILTIAZEM HCL 30 MG TABLET PEG SCH ×3 (05:22→23:23)
[2018-10-15 05:30] LABS: ANION GAP 6 (5-19); BLOOD UREA NITROGEN 11 mg/dL (7-20); CARBON DIOXIDE 23 mmol/L (22-30); CHLORIDE 112 mmol/L (98-107); GLUCOSE 169 mg/dL (75-110); POTASSIUM 3.6 mmol/L (3.6-5.0); SODIUM 141.3 mmol/L (137-145)
[2018-10-15] MEDS: METOCLOPRAMIDE HCL ORAL SOLN 10 MG/10 ML UDCUP GT SCH ×4 (08:30→23:27)
[2018-10-15] MEDS ORDERED: NORMAL SALINE 1000 ML 1,000 ML IV PRN (08:59)
--- NOTE | 2018-10-15 10:42 | PDOC PROGRESS REPORT ---
Subjective Progress Note for:: 10/15/18 Subjective:: Patient is feeling better and the patient's heart rate and blood pressure is also better No fever no chills Respiration is also better Now patient is back to the baseline Reason For Visit: RESPIRATORY DISTRESS Physical Exam Vital Signs: Temp Pulse Resp BP Pulse Ox 98.5 F 105 H 24 H 114/63 98 10/15/18 07:30 10/15/18 08:59 10/15/18 08:59 10/15/18 07:30 10/15/18 08:59 Intake & Output 10/14/18 10/15/18 10/16/18 06:59 06:59 06:59 Intake Total 1600 1100 Output Total 600 Balance 1000 1100 Weight 35.8 kg 35.8 kg Physical Exam: Severe mental retardation and very contracture General appearance: PRESENT: no acute distress Eye exam: PRESENT: PERRLA Mouth exam: PRESENT: neck supple Respiratory exam: PRESENT: decreased breath sounds Cardiovascular exam: PRESENT: +S1, +S2, tachycardia GI/Abdominal exam: PRESENT: normal bowel sounds Neurological exam: PRESENT: alert Results Laboratory Results: 10/15/18 04:05 10/15/18 04:05 10/15/18 10/15/18 04:05 04:05 WBC 4.5 RBC 3.54 L Hgb 11.5 L Hct 34.1 L MCV 96 MCH 32.5 MCHC 33.8 RDW 13.7 Plt Count 234 Seg Neutrophils % 77.0 Lymphocytes % 17.1 Monocytes % 5.7 Eosinophils % 0.0 Basophils % 0.2 Absolute Neutrophils 3.5 Absolute Lymphocytes 0.8 Absolute Monocytes 0.3 Absolute Eosinophils 0.0 Absolute Basophils 0.0 Sodium 141.3 Potassium 3.6 Chloride 112 H Carbon Dioxide 23 Anion Gap 6 BUN 11 Creatinine 0.26 L Est GFR ( Amer) > 60 Est GFR (Non-Af Amer) > 60 Glucose 169 H Calcium 8.0 L Impressions: Chest CT 10/13/18 00:00 IMPRESSION: Chronic hypo aeration of the lungs secondary to the configuration of the thorax because of the scoliosis. Cannot exclude acute an left upper lobe pneumonia. Chest X-Ray 10/13/18 10:06 IMPRESSION: No focal infiltrates Assessment & Plan - Diagnosis (1) Respiratory distress Is this a current diagnosis for this admission?: Yes Plan: Currently back to the baseline try to wean off from the oxygen's (2) Aspiration pneumonia Qualifiers: Lung location: unspecified part of lung Is this a current diagnosis for this admission?: Yes Plan: Clear all stable with the current antibiotic (3) Cerebral palsy Qualifiers: Cerebral palsy type: unspecified type Qualified Code(s): G80.9 - Cerebral palsy, unspecified Is this a current diagnosis for this admission?: Yes (4) Mental and behavioral problem Is this a current diagnosis for this admission?: Yes (5) Uses feeding tube Is this a current diagnosis for this admission?: Yes Plan: Start the tube feeding again (6) Tachycardia Is this a current diagnosis for this admission?: Yes Plan: Sinus tachycardia will continues to Cardizem 30 mg p.o. every 8 (7) Seizure disorder Is this a current diagnosis for this admission?: Yes Plan: Continues to current home medication - Time Time Spent with patient: 15-24 minutes Medications reviewed and adjusted accordingly: Yes Anticipated discharge: SNF Within: Other - Plan Summary Plan Summary: Down the IV fluid Try to wean off from the oxygen's
[2018-10-15] MEDS: FAMOTIDINE INJ/PF 20 MG/2 ML SDV IV SCH ×2 (11:05→23:23)
[2018-10-15] MEDS: ENOXAPARIN SODIUM INJ 40 MG/0.4 ML DISP.SYRIN SUBCUT SCH (11:05)
[2018-10-15] MEDS: POLYETHYLENE GLYCOL 3350 POWDER 17 GM/1 PACKET GT SCH (11:05)
[2018-10-15] MEDS: LANSOPRAZOLE 30 MG TAB.RAP.DR GT SCH (11:06)
[2018-10-15] MEDS: CHOLECALCIFEROL (D3) 1,000 UNIT TABLET GT SCH (11:06)
[2018-10-15] MEDS: ZONISAMIDE 100 MG CAPSULE GT SCH ×2 (11:06→23:26)
[2018-10-15] MEDS: PHENOBARBITAL 97.2 MG TABLET GT SCH (23:24)
[2018-10-16] MEDS: LEVALBUTEROL HCL NEB 0.63 MG/3 ML AMPUL NEB SCH ×5 (04:25→19:38)
[2018-10-16 04:46] LABS: ABSOLUTE LYMPHOCYTES (AUTO) 0.6 10^3/uL (0.5-4.7); ABSOLUTE MONOCYTES (AUTO) 0.4 10^3/uL (0.1-1.4); ABSOLUTE NEUT (AUTO) 9.3 10^3/uL (1.7-8.2); BASOPHILS % (AUTO) 0.2 % (0-2); HEMATOCRIT 36.3 % (36.0-47.0); HEMOGLOBIN 12.2 g/dL (12.0-15.5); LYMPHOCYTES % (AUTO) 6.2 % (13-45); MEAN CORPUSCULAR HEMOGLOBIN 32.2 pg (27.0-33.4); MEAN CORPUSCULAR HGB CONC 33.5 g/dL (32.0-36.0); MEAN CORPUSCULAR VOLUME 96 fl (80-97); MONOCYTES % (AUTO) 4.3 % (3-13); PLATELET COUNT 242 10^3/uL (150-450); RED BLOOD COUNT 3.77 10^6/uL (3.72-5.28); RED CELL DISTRIBUTION WIDTH 13.1 % (11.5-14.0); SEGMENTED NEUTROPHILS % (AUTO) 89.3 % (42-78); TOTAL CELLS COUNTED % (AUTO) 100 %
[2018-10-16 04:48] LABS: WHITE BLOOD COUNT 10.5 10^3/uL (4.0-10.5)
[2018-10-16 05:03] LABS: ANION GAP 5 (5-19)
[2018-10-16 05:14] LABS: BLOOD UREA NITROGEN 7 mg/dL (7-20); CARBON DIOXIDE 27 mmol/L (22-30); CHLORIDE 108 mmol/L (98-107); GLUCOSE 208 mg/dL (75-110); POTASSIUM 3.4 mmol/L (3.6-5.0); SODIUM 139.9 mmol/L (137-145)
[2018-10-16] MEDS: DILTIAZEM HCL 30 MG TABLET PEG SCH ×3 (06:25→22:09)
[2018-10-16] MEDS: CEFEPIME 1 GM/D5W RTU 1 GM/50 ML RTUPB IV SCH ×2 (06:26→17:08)
[2018-10-16] MEDS: METHYLPREDNISOLONE INJ 40 MG/1 ML SDV IV SCH ×2 (06:27→22:09)
[2018-10-16] MEDS: METOCLOPRAMIDE HCL ORAL SOLN 10 MG/10 ML UDCUP GT SCH ×4 (09:08→22:08)
[2018-10-16] MEDS: ENOXAPARIN SODIUM INJ 40 MG/0.4 ML DISP.SYRIN SUBCUT SCH (09:08)
[2018-10-16] MEDS: LANSOPRAZOLE 30 MG TAB.RAP.DR GT SCH (09:09)
[2018-10-16] MEDS: FAMOTIDINE INJ/PF 20 MG/2 ML SDV IV SCH ×2 (09:09→22:08)
[2018-10-16] MEDS: POLYETHYLENE GLYCOL 3350 POWDER 17 GM/1 PACKET GT SCH (09:09)
[2018-10-16] MEDS: CHOLECALCIFEROL (D3) 1,000 UNIT TABLET GT SCH (09:10)
[2018-10-16] MEDS: ZONISAMIDE 100 MG CAPSULE GT SCH ×2 (09:10→22:08)
--- NOTE | 2018-10-16 10:40 | PDOC PROGRESS REPORT ---
Subjective Progress Note for:: 10/16/18 Subjective:: Patient is currently doing fair per the nursing staff's Patient O2 sat is stable without oxygen's No fever Reason For Visit: RESPIRATORY DISTRESS Physical Exam Vital Signs: Temp Pulse Resp BP Pulse Ox 98.6 F 124 H 22 H 121/67 99 10/16/18 07:19 10/16/18 08:40 10/16/18 08:07 10/16/18 07:19 10/16/18 08:07 Intake & Output 10/15/18 10/16/18 10/17/18 06:59 06:59 06:59 Intake Total 1100 50 50 Balance 1100 50 50 Weight 35.8 kg 36.3 kg General appearance: PRESENT: no acute distress Eye exam: PRESENT: PERRLA Respiratory exam: PRESENT: decreased breath sounds Cardiovascular exam: PRESENT: +S1, +S2 Neurological exam: PRESENT: alert Skin exam: PRESENT: dry Results Laboratory Results: 10/16/18 04:12 10/16/18 04:12 10/16/18 10/16/18 04:12 04:12 WBC 10.5 D RBC 3.77 Hgb 12.2 Hct 36.3 MCV 96 MCH 32.2 MCHC 33.5 RDW 13.1 Plt Count 242 Seg Neutrophils % 89.3 H Lymphocytes % 6.2 L Monocytes % 4.3 Eosinophils % 0.0 Basophils % 0.2 Absolute Neutrophils 9.3 H Absolute Lymphocytes 0.6 Absolute Monocytes 0.4 Absolute Eosinophils 0.0 Absolute Basophils 0.0 Sodium 139.9 Potassium 3.4 L Chloride 108 H Carbon Dioxide 27 Anion Gap 5 BUN 7 Creatinine 0.26 L Est GFR ( Amer) > 60 Est GFR (Non-Af Amer) > 60 Glucose 208 H Calcium 8.0 L 10/13/18 12:40 Catheterized Urine Urine Culture - Final NO GROWTH 2 DAYS Impressions: Chest CT 10/13/18 00:00 IMPRESSION: Chronic hypo aeration of the lungs secondary to the configuration of the thorax because of the scoliosis. Cannot exclude acute an left upper lobe pneumonia. Chest X-Ray 10/13/18 10:06 IMPRESSION: No focal infiltrates Assessment & Plan - Diagnosis (1) Respiratory distress Is this a current diagnosis for this admission?: Yes Plan: Currently all improving (2) Aspiration pneumonia Qualifiers: Lung location: unspecified part of lung Is this a current diagnosis for this admission?: Yes (3) Cerebral palsy Qualifiers: Cerebral palsy type: unspecified type Qualified Code(s): G80.9 - Cerebral palsy, unspecified Is this a current diagnosis for this admission?: Yes (4) Mental and behavioral problem Is this a current diagnosis for this admission?: Yes (5) Uses feeding tube Is this a current diagnosis for this admission?: Yes Plan: Start the tube feeding again (6) Tachycardia Is this a current diagnosis for this admission?: Yes (7) Seizure disorder Is this a current diagnosis for this admission?: Yes Plan: Continues to current home medication - Time Time Spent with patient: 15-24 minutes Medications reviewed and adjusted accordingly: Yes Anticipated discharge: SNF Within: Other - Plan Summary Plan Summary: Patient is currently doing well Will repeat the chest x-ray
--- NOTE | 2018-10-16 12:06 | RADIOLOGY REPORT (SQ) ---
EXAM DESCRIPTION: CHEST SINGLE VIEW COMPLETED DATE/TIME: 10/16/2018 11:56 am REASON FOR STUDY: cough COMPARISON: 10/13/2018. EXAM PARAMETERS: NUMBER OF VIEWS: One view. TECHNIQUE: Single frontal radiographic view of the chest acquired. RADIATION DOSE: NA LIMITATIONS: Limited due to chronic skeletal deformity. FINDINGS: LUNGS AND PLEURA: Limited visualization. No definite lobar infiltrates or large pleural e ffusions. No pneumothorax. MEDIASTINUM AND HILAR STRUCTURES: No masses. Contour normal. HEART AND VASCULAR STRUCTURES: Heart normal in size. Normal vasculature. BONES: Severe chronic scoliosis. HARDWARE: None in the chest. OTHER: No other significant finding. IMPRESSION: LIMITED STUDY. NO DEFINITE ACUTE FINDINGS. TECHNICAL DOCUMENTATION: JOB ID: [id number] [employer]- All Rights Reserved Reading location - IP/workstation name: [email or web address]
[2018-10-16] MEDS: PHENOBARBITAL 97.2 MG TABLET GT SCH (22:08)
[2018-10-17] MEDS: LEVALBUTEROL HCL NEB 0.63 MG/3 ML AMPUL NEB SCH ×7 (00:25→23:40)
[2018-10-17] MEDS: DILTIAZEM HCL 30 MG TABLET PEG SCH ×3 (05:42→22:27)
[2018-10-17] MEDS: CEFEPIME 1 GM/D5W RTU 1 GM/50 ML RTUPB IV SCH ×2 (05:42→18:13)
[2018-10-17] MEDS: METOCLOPRAMIDE HCL ORAL SOLN 10 MG/10 ML UDCUP GT SCH ×4 (08:00→22:27)
--- NOTE | 2018-10-17 09:12 | PDOC PROGRESS REPORT ---
Subjective Progress Note for:: 10/17/18 Subjective:: Patient is currently doing fair per the nursing staff's Patient O2 sat is stable without oxygen's No fever Reason For Visit: RESPIRATORY DISTRESS Physical Exam Vital Signs: Temp Pulse Resp BP Pulse Ox 99.0 F 101 H 24 H 130/75 H 91 L 10/16/18 23:40 10/17/18 08:20 10/17/18 08:20 10/16/18 23:40 10/17/18 08:20 Intake & Output 10/16/18 10/17/18 10/18/18 06:59 06:59 06:59 Intake Total 50 150 Balance 50 150 Weight 36.3 kg 36.4 kg General appearance: PRESENT: no acute distress Eye exam: PRESENT: PERRLA Mouth exam: PRESENT: neck supple Respiratory exam: PRESENT: clear to auscultation pretty Cardiovascular exam: PRESENT: +S1 GI/Abdominal exam: PRESENT: normal bowel sounds, soft Neurological exam: PRESENT: alert Results Laboratory Results: 10/16/18 04:12 10/16/18 04:12 Impressions: Chest CT 10/13/18 00:00 IMPRESSION: Chronic hypo aeration of the lungs secondary to the configuration of the thorax because of the scoliosis. Cannot exclude acute an left upper lobe pneumonia. Chest X-Ray 10/16/18 00:00 IMPRESSION: LIMITED STUDY. NO DEFINITE ACUTE FINDINGS. Assessment & Plan - Diagnosis (1) Respiratory distress Is this a current diagnosis for this admission?: Yes Plan: Currently all improving (2) Aspiration pneumonia Qualifiers: Lung location: unspecified part of lung Is this a current diagnosis for this admission?: Yes Plan: Clear all stable with the current antibiotic (3) Cerebral palsy Qualifiers: Cerebral palsy type: unspecified type Qualified Code(s): G80.9 - Cerebral p alsy, unspecified Is this a current diagnosis for this admission?: Yes (4) Mental and behavioral problem Is this a current diagnosis for this admission?: Yes (5) Uses feeding tube Is this a current diagnosis for this admission?: Yes Plan: Start the tube feeding again (6) Tachycardia Is this a current diagnosis for this admission?: Yes (7) Seizure disorder Is this a current diagnosis for this admission?: Yes - Time Time Spent with patient: 15-24 minutes Medications reviewed and adjusted accordingly: Yes Anticipated discharge: SNF Within: Other - Plan Summary Plan Summary: Patient's chest x-ray is clear Currently back to the baseline Hopefully discharge today to the nursing facilities if remained without oxygen
[2018-10-17] MEDS: POLYETHYLENE GLYCOL 3350 POWDER 17 GM/1 PACKET GT SCH (10:57)
[2018-10-17] MEDS: ENOXAPARIN SODIUM INJ 40 MG/0.4 ML DISP.SYRIN SUBCUT SCH (11:05)
[2018-10-17] MEDS: CHOLECALCIFEROL (D3) 1,000 UNIT TABLET GT SCH (11:05)
[2018-10-17] MEDS: FAMOTIDINE INJ/PF 20 MG/2 ML SDV IV SCH ×2 (11:05→22:26)
[2018-10-17] MEDS: LANSOPRAZOLE 30 MG TAB.RAP.DR GT SCH (11:05)
[2018-10-17] MEDS: METHYLPREDNISOLONE INJ 40 MG/1 ML SDV IV SCH ×2 (11:05→22:25)
[2018-10-17] MEDS: ZONISAMIDE 100 MG CAPSULE GT SCH ×2 (11:07→22:27)
[2018-10-17] MEDS ORDERED: DILTIAZEM HCL 30 MG TABLET PEG ONE (18:00)
[2018-10-17] MEDS: PHENOBARBITAL 97.2 MG TABLET GT SCH (22:27)
[2018-10-18] MEDS: LEVALBUTEROL HCL NEB 0.63 MG/3 ML AMPUL NEB SCH ×5 (04:23→19:32)
[2018-10-18] MEDS: DILTIAZEM HCL 30 MG TABLET PEG SCH (05:18)
[2018-10-18] MEDS: CEFEPIME 1 GM/D5W RTU 1 GM/50 ML RTUPB IV SCH ×2 (05:25→17:52)
[2018-10-18] MEDS: METOCLOPRAMIDE HCL ORAL SOLN 10 MG/10 ML UDCUP GT SCH ×4 (08:00→21:31)
[2018-10-18] MEDS: POLYETHYLENE GLYCOL 3350 POWDER 17 GM/1 PACKET GT SCH (10:55)
[2018-10-18] MEDS: CHOLECALCIFEROL (D3) 1,000 UNIT TABLET GT SCH (11:09)
[2018-10-18] MEDS: FAMOTIDINE INJ/PF 20 MG/2 ML SDV IV SCH ×2 (11:09→21:23)
[2018-10-18] MEDS: LANSOPRAZOLE 30 MG TAB.RAP.DR GT SCH (11:09)
[2018-10-18] MEDS: ENOXAPARIN SODIUM INJ 40 MG/0.4 ML DISP.SYRIN SUBCUT SCH (11:10)
[2018-10-18] MEDS: METHYLPREDNISOLONE INJ 40 MG/1 ML SDV IV SCH ×2 (11:10→21:22)
[2018-10-18] MEDS: ZONISAMIDE 100 MG CAPSULE GT SCH ×2 (11:11→21:31)
--- NOTE | 2018-10-18 12:54 | PDOC PROGRESS REPORT ---
Subjective Progress Note for:: 10/18/18 Subjective:: Patient is currently doing well Off the oxygen Patient heart rate is still running 120 range Reason For Visit: RESPIRATORY DISTRESS Physical Exam Vital Signs: Temp Pulse Resp BP Pulse Ox 98.2 F 131 H 26 H 121/85 91 L 10/18/18 12:29 10/18/18 12:29 10/18/18 12:29 10/18/18 12:29 10/18/18 12:29 Intake & Output 10/17/18 10/18/18 10/19/18 06:59 06:59 06:59 Intake Total 150 954 Balance 150 954 Weight 36.4 kg 36.4 kg General appearance: PRESENT: no acute distress Eye exam: PRESENT: PERRLA Mouth exam: PRESENT: neck supple Respiratory exam: PRESENT: clear to auscultation pretty Cardiovascular exam: PRESENT: +S1, +S2, tachycardia GI/Abdominal exam: PRESENT: normal bowel sounds Neurological exam: PRESENT: alert Results Laboratory Results: 10/16/18 04:12 10/16/18 04:12 10/13/18 11:48 Blood Blood Culture - Final NO GROWTH IN 5 DAYS 10/13/18 10:55 Blood Blood Culture - Final NO GROWTH IN 5 DAYS Impressions: Chest CT 10/13/18 00:00 IMPRESSION: Chronic hypo aeration of the lungs secondary to the configuration of the thorax because of the scoliosis. Cannot exclude acute an left upper lobe pneumonia. Chest X-Ray 10/16/18 00:00 IMPRESSION: LIMITED STUDY. NO DEFINITE ACUTE FINDINGS. Assessment & Plan - Diagnosis (1) Respiratory distress Is this a current diagnosis for this admission?: Yes Plan: Currently all improving (2) Aspiration pneumonia Qualifiers: Lung location: unspecified part of lung Is this a current diagnosis for this admission?: Yes Plan: Clear all stable with the current antibiotic (3) Cerebral palsy Qualifiers: Cerebral palsy type: unspecified type Qualified Code(s): G80.9 - Cerebral palsy, unspecified Is this a current diagnosis for this admission?: Yes (4) Mental and behavioral problem Is this a current diagnosis for this admission?: Yes (5) Uses feeding tube Is this a current diagnosis for this admission?: Yes (6) Tachycardia Is this a current diagnosis for this admission?: Yes Plan: Will get the echocardiogram Unable to the CT angiogram to the IV access issues Patient CT of the chest was okay Will get the Toprol-XL as per discussed with the cardiology instead of the Cardizem (7) Seizure disorder Is this a current diagnosis for this admission?: Yes - Time Time Spent with patient: 15-24 minutes Medications reviewed and adjusted accordingly: Yes Anticipated discharge: SNF Within: Other - Plan Summary Plan Summary: orders
[2018-10-18] MEDS ORDERED: DILTIAZEM HCL 30 MG TABLET PEG SCH (14:00)
[2018-10-18] MEDS ORDERED: DILTIAZEM HCL 60 MG TABLET PEG SCH (14:00)
[2018-10-18] MEDS: METOPROLOL SUCCINATE 25 MG TAB.SR.24H PO SCH ×2 (14:31→21:24)
[2018-10-18] MEDS: PHENOBARBITAL 97.2 MG TABLET GT SCH (21:24)
[2018-10-19] MEDS: LEVALBUTEROL HCL NEB 0.63 MG/3 ML AMPUL NEB SCH ×4 (00:04→12:05)
[2018-10-19] MEDS: CEFEPIME 1 GM/D5W RTU 1 GM/50 ML RTUPB IV SCH (05:18)
--- NOTE | 2018-10-19 08:44 | PDOC DISCHARGE SUMMARY ---
General - Admit/Disc Date/PCP Admission Date/Primary Care Provider: 10/13/18 15:22 OLIVERIO BABIN MD Discharge Date: 10/19/18 - Discharge Diagnosis (1) Respiratory distress Is this a current diagnosis for this admission?: Yes Summary: Currently all resolved (2) Aspiration pneumonia Is this a current diagnosis for this admission?: Yes Summary: Currently all resolved (3) Cerebral palsy Is this a current diagnosis for this admission?: Yes (4) Mental and behavioral problem Is this a current diagnosis for this admission?: Yes (5) Uses feeding tube Is this a current diagnosis for this admission?: Yes (6) Tachycardia Is this a current diagnosis for this admission?: Yes Summary: Continues the beta-desiree unable to get the echocardiogram and CTA due to the patient's positional and very contracture As per discussed with the cardiology suggest the continues the beta-desiree is mostly coming from the respiratory issues and will continues to use the Xopenex instead of the albuterol (7) Seizure disorder Is this a current diagnosis for this admission?: Yes Summary: Continue current medication - Additional Information Resuscitation Status: Do Not Resuscitate Discharge Diet: Tube Feeding (Comments) Discharge Activity: Activity As Tolerated Prescriptions: Levalbuterol HCl [Xopenex Neb 0.63 mg/3 ml Ampul] 0.63 mg NEB Q6 PRN #120 v ial.neb PRN Reason: Metoprolol Succinate [Toprol Xl 25 mg Tab.sr] 12.5 mg PO Q12 #60 tab.sr.24h Home Medications: Diazepam [Diastat Acudial 10 mg/2 ml Rectal Gel] 1 each RC Q6HP PRN 11/02/12 Fluconazole [Diflucan] 150 mg GT Q7D PRN 11/02/12 Hyoscyamine Sulfate [Hyosyne] 0.25 mg GT Q6H 11/02/12 Metoclopramide HCl [Reglan Oral Soln 10 mg/10 ml Udcup] 10 mg GT QID 11/02/12 Polyethylene Glycol 3350 [Miralax Powder 17 gm/Packet] 17 gm GT DAILY 11/02/12 Zonisamide [Zonegran 100 mg Capsule] 300 mg GT Q12 11/02/12 Cholecalciferol (Vitamin D3) [Vitamin D3] 1,000 unit GT DAILY 10/13/18 Dextromethorphan HBr/Chlor-Mal [Robitussin Cough-Cold Liquid] 15 ml GT BID PRN 0 10/13/18 Fluoride (Sodium) [Prevident 5000] 1 ml PO Q8 10/13/18 Ibuprofen [Child Ibuprofen] 400 mg GT Q6HP PRN 10/13/18 Lansoprazole [Prevacid 30 mg Odt Tablet] 30 mg GT DAILY 10/13/18 Phenobarbital [Phenobarbital 97.2 mg Tablet] 97.2 mg GT QHS 10/13/18 Cefdinir 300 mg PO Q12 #10 10/19/18 Levalbuterol HCl [Xopenex Neb 0.63 mg/3 ml Ampul] 0.63 mg NEB Q6 PRN #120 vial.neb 10/19/18 Metoprolol Succinate [Toprol Xl 25 mg Tab.sr] 12.5 mg PO Q12 #60 tab.sr.24h 10/19/18 History of Present Illness History of Present Illness: KISHAN GUADARRAMA is a 38 year old female This is a 38-year-old female is with a significant history of cerebral palsy severe mental retardation's any seizures disorder brought to the office last weeks with a complaining of a fever cough congestions have a flu test was done was negative in office patients have a chest x-ray blood work suggested questionable pneumonia possible aspiration start the patient on a Bactrim DS bro ught to the emergency department with the breathing more heavily and initial workup including the chest x-ray blood work is all stable but according to the ER patient still breathing heavily and decided to admit for exacerbation of asthma Patient is giving the Solu-Medrol in the ER and the respiratory treatments At this point patient admitting in a telemetry bed for further evaluations for this respiratory distressed we will order the CT angiogram to rule out other etiology As per the discussed with the caregiver patient is currently a DNR Patient have a significant history of the encephalopathy status post C-sections delivery due to the maternal urinary tract infections history of the 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 Patient's response very well Patients also wean off from the oxygen Patient also have a history of tachycardia patient's most likely sinus tachycardia from respiratory issues Patient initially started on a Cardizem was not responding very well but put on a beta-desiree response very well As per discussed with the cardiology unable to do the echocardiogram because of the patient's progestin contracture will try again as outpatient Patient's baseline status at this point normal as at the intermediate Discussed with the intermediate nurses and discharge and continues to monitor over the We will discontinue the albuterol treatments and use Xopenex if needed Continues to tube feeding with increased more extra fluid for flush for possible dehydration's Physical Exam Vital Signs: Temp Pulse Resp BP Pulse Ox 98.3 F 81 16 93/64 L 93 10/18/18 23:12 10/19/18 07:37 10/19/18 07:37 10/18/18 23:12 10/19/18 07:37 Intake & Output 10/18/18 10/19/18 10/20/18 06:59 06:59 06:59 Intake Total 954 934 Balance 954 934 Weight 36.4 kg 36.4 kg General appearance: PRESENT: no acute distress Eye exam: PRESENT: PERRLA Mouth exam: PRESENT: neck supple Respiratory exam: PRESENT: clear to auscultation pretty Cardiovascular exam: PRESENT: +S1, +S2 GI/Abdominal exam: PRESENT: normal bowel sounds, soft Neurological exam: PRESENT: alert, awake Results Laboratory Results: 10/16/18 04:12 10/16/18 04:12 10/13/18 11:48 Blood Blood Culture - Final NO GROWTH IN 5 DAYS 10/13/18 10:55 Blood Blood Culture - Final NO GROWTH IN 5 DAYS Impressions: Chest CT 10/13/18 00:00 IMPRESSION: Chronic hypo aeration of the lungs secondary to the configuration of the thorax because of the scoliosis. Cannot exclude acute an left upper lobe pneumonia. Chest X-Ray 10/16/18 00:00 IMPRESSION: LIMITED STUDY. NO DEFINITE ACUTE FINDINGS. Qualifiers - * PATIENT BEING DISCHARGED WITH ANY OF THE FOLLOWING DIAGNOSIS: No VTE patient discharged on overlapping Therapy?: Yes Plan Time Spent: Greater than 30 Minutes - Discharge to the intermediate facilities
[2018-10-19] MEDS: POLYETHYLENE GLYCOL 3350 POWDER 17 GM/1 PACKET GT SCH (10:04)
[2018-10-19] MEDS: FAMOTIDINE INJ/PF 20 MG/2 ML SDV IV SCH (10:13)
[2018-10-19] MEDS: METOPROLOL SUCCINATE 25 MG TAB.SR.24H PO SCH (10:13)
[2018-10-19] MEDS: ENOXAPARIN SODIUM INJ 40 MG/0.4 ML DISP.SYRIN SUBCUT SCH (10:13)
[2018-10-19] MEDS: LANSOPRAZOLE 30 MG TAB.RAP.DR GT SCH (10:13)
[2018-10-19] MEDS: CHOLECALCIFEROL (D3) 1,000 UNIT TABLET GT SCH (10:13)
[2018-10-19] MEDS: METHYLPREDNISOLONE INJ 40 MG/1 ML SDV IV SCH (10:14)
[2018-10-19] MEDS: METOCLOPRAMIDE HCL ORAL SOLN 10 MG/10 ML UDCUP GT SCH ×2 (10:15→11:00)
[2018-10-19] MEDS: ZONISAMIDE 100 MG CAPSULE GT SCH (10:15)
[2018-10-19 12:34] VITALS: BP 102/76
== END 2018-10-19 15:18 | disposition home health service (06) | DRG 178 ==
LOC: ER 10:05 → EH 15:22 → 5 18:37
PROVIDERS: ADMIT Family Medicine; ATTEND Family Medicine
DX: J69.0 Pneumonitis due to inhalation of food and vomit (principal); J45.41 Moderate persistent asthma with (acute) exacerbation; F73 Profound intellectual disabilities; Z66 Do not resuscitate; K21.9 Gastro-esophageal reflux disease without esophagitis; G80.9 Cerebral palsy, unspecified; G40.909 Epilepsy, unspecified, not intractable, without status epilepticus; M41.9 Scoliosis, unspecified; Z93.1 Gastrostomy status; Z79.51 Long term (current) use of inhaled steroids; Z79.899 Other long term (current) drug therapy
CPT/HCPCS: 36415; 71045; 71250; 80048; 80053; 81001; 82803; 83605; 84443; 85025; 85379; 85610; 87040; 87086; 93005; 93010; 94640; 96361; 96374; 99291; J0692; J1650; J2920; J2930; J3490; J7030; J7120; J7614; J7620; S0028

== ENCOUNTER 2019-08-22 14:32 | Inpatient (IN) | payer MEDICAID ==
[2019-08-22] MEDS ORDERED: METHYLPREDNISOLONE INJ 125 MG/2 ML SDV IV ONE (15:17)
[2019-08-22] MEDS ORDERED: IPRATROPIUM/ALBUTEROL 0.5-2.5 MG/3 ML AMPUL NEB ONE (15:17)
[2019-08-22] MEDS ORDERED: NORMAL SALINE 500 ML IV ONE (15:17)
[2019-08-22] MEDS ORDERED: ONDANSETRON HCL INJ/PF 4 MG/2 ML SDV IV ONE (15:18)
--- NOTE | 2019-08-22 15:27 | ER Document Report ---
ED General - General Chief Complaint: Shortness Of Breath Stated Complaint: DIFFICULTY BREATHING Time Seen by Provider: 08/22/19 14:56 Primary Care Provider: OLIVERIO COOL MD [Primary Care Provider] - Follow up as needed TRAVEL OUTSIDE OF THE [place] IN LAST 30 DAYS: No - Related Data Allergies/Adverse Reactions: No Known Allergies Allergy (Verified 10/13/18 18:08) Past Medical History - Social History Smoking Status: Never Smoker Family History: Reviewed & Not Pertinent Patient has suicidal ideation: No Patient has homicidal ideation: No Pulmonary Medical History: Reports: Hx Bronchitis, Hx Pneumonia Neurological Medical History: Reports: Hx Seizures Renal/ Medical History: Denies: Hx Peritoneal Dialysis GI Medical History: Reports: Hx Gastroesophageal Reflux Disease Musculoskeletal Medical History: Reports Hx Musculoskeletal Deformity - Kyphoscoliosis - Immunizations Hx Diphtheria, Pertussis, Tetanus Vaccination: Yes Physical Exam - Vital signs Vitals: Temp Pulse BP Pulse Ox 98.3 F 103 H 128/93 H 77 L 08/22/19 14:50 08/22/19 14:50 08/22/19 14:50 08/22/19 14:50 - Notes Notes: Patient was brought in from adult home with a complaint of shortness of breath and cough the cough started last night. She had 2 episodes of vomiting after coughing spell. But no vomiting since. It was noted that O2 sats had dropped to 88% and came up to 93 on 2 L. Was given 1 DuoNeb earlier today she noticed episodes of vomiting. No URI symptoms or fevers. Reports similar episode about 1 year ago when she had pneumonia Past medical history is significant cerebral palsy seizures and scoliosis as well as tachycardia currently gets tube feedings for 8 hours at night Social history does not smoke or drink Review of systems unobtainable from patient E1 PHYSICIAN EXAM -vital signs are noted triage note and note from triage reviewed GENERAL: Well-appearing, well-nourished and in __mild respiratory distress___she will supplement O2 her pulse ox is been running 94 to 96% 3 times I was in the room_ HEAD: Atraumatic, normocephalic. EYES: Pupils equal round and reactive to light, extraocular movements intact, sclera anicteric, conjunctiva are normal. ENT: nares patent, oropharynx clear without exudates. Dry mucous membranes. NECK: supple without lymphadenopathy LUNGS: Good breath sounds scattered wheezes by airway rhonchi and tachypnea HEART: Rapid and regular ABDOMEN: Soft, nontender, normoactive bowel sounds. Slightly distended EXTREMITIES: Fractures of the upper lower extremities NEUROLOGICAL: Awake with some response to painful stimuli PSYCH: Unable to eval SKIN: Warm, Dry, normal turgor, no rashes or lesions noted. BACK-no step-off Differential diagnosis pneumonia aspiration bronchitis Course - Re-evaluation Re-evalutation: 08/22/19 17:14 ED patient is remained stable and on threat monitoring analyst with supplemental O2 was given prednisone and DuoNeb Medical decision making patient presents with cough and low O2 sats rhythms and pneumonia will need admission I have consulted her family doctor - Vital Signs Vital signs: Temp Pulse Resp BP Pulse Ox 98.3 F 103 H 128/93 H 77 L 08/22/19 14:50 08/22/19 14:50 08/22/19 14:50 08/22/19 14:50 - Laboratory Result Diagrams: 08/22/19 16:55 08/22/19 16:55 Discharge - Discharge Clinical Impression: Respiratory distress Aspiration pneumonia Qualifiers: Laterality: right Lung location: unspecified part of lung Disposition: ADMITTED INPATIENT Admitting Provider: cool Unit Admitted: Telemetry Referrals: OLIVERIO COOL MD [Primary Care Provider] - Follow up as needed
--- NOTE | 2019-08-22 16:15 | RADIOLOGY REPORT (SQ) ---
EXAM DESCRIPTION: CHEST SINGLE VIEW COMPLETED DATE/TIME: 08/22/2019 4:02 pm REASON FOR STUDY: Short of breath COMPARISON: Chest films 10/13/2018, 10/16/2018 EXAM PARAMETERS: NUMBER OF VIEWS: One view. TECHNIQUE: Single frontal radiographic view of the chest acquired. RADIATION DOSE: NA LIMITATIONS: Motion artifact, distortion of the patient's thorax from scoliosis FINDINGS: LUNGS AND PLEURA: Airspace disease is present in the right upper lobe worrisome for pneumo rhonda. Area of concern is marked with a crooked creek. Left lung grossly clear. No pleural effusions. No gross pneumothorax. MEDIASTINUM AND HILAR STRUCTURES: No masses. Contour normal. HEART AND VASCULAR STRUCTURES: Heart normal in size. Normal vasculature. BONES: Convex leftward lower thoracic curvature HARDWARE: None in the chest. OTHER: No other significant finding. IMPRESSION: Right upper lobe airspace disease worrisome for pneumonia TECHNICAL DOCUMENTATION: JOB ID: [id number] [email or web address]- All Rights Reserved Reading location - IP/workstation name: [email or web address]
[2019-08-22] MEDS ORDERED: ONDANSETRON HCL INJ/PF 4 MG/2 ML SDV IV PRN (16:54)
[2019-08-22] MEDS ORDERED: ACETAMINOPHEN 325 MG TABLET PO PRN (16:54)
[2019-08-22] MEDS ORDERED: CEFEPIME 1 GM/D5W RTU 1 GM/50 ML RTUPB IV SCH (17:00)
[2019-08-22] MEDS ORDERED: CLINDAMYCIN 600 MG/D5W RTU 600 MG/50 ML RTUPB IV SCH (17:00)
--- NOTE | 2019-08-22 17:02 | PDOC H&P ---
History of Present Illness Admission Date/PCP: OLIVERIO BABIN MD Patient complains of: Hypoxia possible aspiration History of Present Illness: KISHAN GUADARRAMA is a 39 year old female This is a 39-year-old female with a profound mental retardation cerebral palsy currently in a tube feeding seizures disorder currently lives in a [facility] facility brought to the emergency department because patients have vomiting this morning and possible aspiration and O2 sat is dropping down to up to 88%'s Patient is brought to the EMS patient O2 sat is 77% on room air put at 2 L nasal cannula goes to up to 90%'s When I saw the patient some mild distress but other than that currently comfortable with the 2 older nasal cannula discussed with the caregiver at nursing staff for the bedside patient is currently a DNR Patient also have a 5-minute seizures activity before the patient's comes Having no fever no chills No contact with any flu Patient have a mother living in [facility] and will contact the mother inform the mother Discussed with the nursing staff at [facility] Also have a history of the sinus tachycardia currently on a beta-desiree well controlled Past Medical History Pulmonary Medical History: Reports: Bronchitis, Pneumonia Neurological Medical History: Reports: Seizures Neurological History Note: Profound mental retardation cerebral palsy GI Medical History: Reports: Gastroesophageal Reflux Disease Social History Information Source: Legal Guardian Smoking Status: Never Smoker Frequency of Alcohol Use: None Hx Recreational Drug Use: No Drugs: None Hx Prescription Drug Abuse: No Family History Family History: Reviewed & Not Pertinent Parental Family History Reviewed: Yes Children Family History Reviewed: Yes Sibling(s) Family History Reviewed.: Yes Medication/Allergy Home Medications: Diazepam [Diastat Acudial 10 mg/2 ml Rectal Gel] 1 each RC Q6HP PRN 11/02/12 Fluconazole [Diflucan] 150 mg GT Q7D PRN 11/02/12 Hyoscyamine Sulfate [Hyosyne] 0.25 mg GT Q6H 11/02/12 Metoclopramide HCl [Reglan Oral Soln 10 mg/10 ml Udcup] 10 mg GT QID 11/02/12 Polyethylene Glycol 3350 [Miralax Powder 17 gm/Packet] 17 gm GT DAILY 11/02/12 Zonisamide [Zonegran 100 mg Capsule] 300 mg GT Q12 11/02/12 Cholecalciferol (Vitamin D3) [Vitamin D3] 1,000 unit GT DAILY 10/13/18 Dextromethorphan HBr/Chlor-Mal [Robitussin Cough-Cold Liquid] 15 ml GT BID PRN 10/13/18 Fluoride (Sodium) [Prevident 5000] 1 ml PO Q8 10/13/18 Ibuprofen [Child Ibuprofen] 400 mg GT Q6HP PRN 10/13/18 Lansoprazole [Prevacid 30 mg Odt Tablet] 30 mg GT DAILY 10/13/18 Phenobarbital [Phenobarbital 97.2 mg Tablet] 97.2 mg GT QHS 10/13/18 Cefdinir 300 mg PO Q12 #10 10/19/18 Levalbuterol HCl [Xopenex Neb 0.63 mg/3 ml Ampul] 0.63 mg NEB Q6 PRN #120 vial.neb 10/19/18 Metoprolol Succinate [Toprol Xl 25 mg Tab.sr] 12.5 mg PO Q12 #60 tab.sr.24h 10/19/18 Allergies/Adverse Reactions: No Known Allergies Allergy (Verified 10/13/18 18:08) Review of Systems ROS unobtainable: Due to mental status All systems: reviewed and no additional remarkable complaints except as stated Physical Exam Vital Signs: Temp Pulse Resp BP Pulse Ox 98.3 F 103 H 128/93 H 77 L 08/22/19 14:50 08/22/19 14:50 08/22/19 14:50 08/22/19 14:50 Intake & Output 08/21/19 08/22/19 08/23/19 06:59 06:59 06:59 Weight 34.473 kg General appearance: PRESENT: mild distress Eye exam: PRESENT: PERRLA Respiratory exam: PRESENT: decreased breath sounds Cardiovascular exam: PRESENT: +S1, +S2 GI/Abdominal exam: PRESENT: normal bowel sounds Additonal comments: Tube feeding is intact Neurological exam: PRESENT: alert, awake Additional comments: Contracture all 4 extremity due to the CP posture Skin exam: PRESENT: dry Results Impressions: Chest X-Ray 08/22/19 15:16 IMPRESSION: Right upper lobe airspace disease worrisome for pneumonia Assessment & Plan - Diagnosis (1) Aspiration pneumonia Qualifiers: Laterality: right Lung location: unspecified part of lung Is this a current diagnosis for this admission?: Yes Plan: Most likely due to the vomited and seizures activity Get the aspirations precautions Start the patient on IV cefepime and clindamycin Xopenex respiratory treatment Continues to monitor Consult the pulmonary (2) Cerebral palsy Qualifiers: Cerebral palsy type: unspecified type Qualified Code(s): G80.9 - Cerebral palsy, unspecified Is this a current diagnosis for this admission?: Yes (3) Mental and behavioral problem Is this a current diagnosis for this admission?: Yes (4) Respiratory distress Is this a current diagnosis for this admission?: Yes Plan: Get the Xopenex treatments (5) Seizure disorder Is this a current diagnosis for this admission?: Yes Plan: Continues to current seizures medications (6) Tachycardia Is this a current diagnosis for this admission?: Yes Plan: Continues to current medications (7) Uses feeding tube Is this a current diagnosis for this admission?: Yes Plan: We hold the tube feeding for next 24 hours - Time Time Spent: 30 to 50 Minutes Medications reviewed and adjusted accordingly: Yes Anticipated discharge: Other Within: Other - Inpatient Certification Based on my medical assessment, after consideration of the patient's comorbidities, presenting symptoms, or acuity I expect that the services needed warrant INPATIENT care.: Yes I certify that my determination is in accordance with my understanding of Medicare's requirements for reasonable and necessary INPATIENT services [42 CFR 412.3e].: Yes Medical Necessity: Significant Comorbidiites Make Outpatient Treatment Too Risky, Need for IV Antibiotics Post Hospital Care: D/C Training Specialist Documentation - Plan Summary Plan Summary: Admit the patient in IMCU See other MD orders Discussed with the caregiver and the bedside Reviewed the patient's all records from the [facility] Patient is currently DNR/DNI Will inform the patient's mother
[2019-08-22] MEDS: CLINDAMYCIN 600 MG/D5W RTU 600 MG/50 ML RTUPB IV SCH (18:10)
--- NOTE | 2019-08-22 19:07 | RADIOLOGY REPORT (SQ) ---
EXAM DESCRIPTION: CT ABD/PELVIS NO ORAL OR IV COMPLETED DATE/TIME: 08/22/2019 5:26 pm REASON FOR STUDY: vomiting/tube feeding / COMPARISON: CT abdomen and pelvis 11/24/2006 AP chest same date TECHNIQUE: CT scan of the abdomen and pelvis performed without intravenous or oral contrast. Images reviewed with lung, soft tissue, and bone windows. Reconstructed coronal and sagittal MPR images revi ewed. All images stored on PACS. All CT scanners at this facility use dose modulation, iterative reconstruction, and/or weight based d osing when appropriate to reduce radiation dose to as low as reasonably achievable (ALARA). [facility]: Dose Right [facility]: CareDose [facility]: Dose Right [facility]: Teradose 4D [facility]: [employer] RADIATION DOSE: CT Rad equipment meets quality standard of care and radiation dose reduction techniq ues were employed. CTDIvol: 7.2 mGy. DLP: 286 mGy-cm.mGy. LIMITATIONS: Distortion of normal anatomic relationships due to severe convex leftward scoliosis FINDINGS: LOWER CHEST: There is dense consolidation in the right lower lobe worrisome for pneumonia. Left lung base grossly clear. NON-CONTRASTED LIVER, SPLEEN, ADRENALS: Evaluation limited by lack of IV contrast. No identified sign ificant masses. PANCREAS: No masses. No peripancreatic inflammatory changes. GALLBLADDER: No identified stones by CT criteria. No inflammatory changes to suggest cholecystitis. RIGHT KIDNEY AND URETER: No suspicious masses. Assessment limited by lack of IV contrast. No signif icant calcifications. No hydronephrosis or hydroureter. LEFT KIDNEY AND URETER: No suspicious masses. Assessment limited by lack of IV contrast. No signifi cant calcifications. No hydronephrosis or hydroureter. AORTA AND RETROPERITONEUM: No aneurysm. No retroperitoneal masses or adenopathy. BOWEL AND PERITONEAL CAVITY: No obvious masses or inflammatory changes. No free fluid. The patient h as a gastrojejunostomy tube. The gastrostomy portion of the tube is in good positioning. The jejuna l portion of the tube is in good position. No dilated bowel loops worrisome for bowel obstruction APPENDIX: Not definitely visualized. No lower abdominal inflammatory change. PELVIS, BLADDER, AND ABDOMINAL WALL:No abnormal masses. No free fluid. Bladder normal. Normal size f emale pelvic organs BONES: Severe convex leftward scoliosis. Bilateral chronic hip dislocations OTHER: No other significant finding. IMPRESSION: Right lower lobe pneumonia No CT evidence of bowel obstruction. Gastrojejunostomy tube in good positioning. COMMENT: Quality ID # [id number]: Final reports with documentation of one or more dose reduction techniques (e.g., Automated exposure control, adjustment of the mA and/or kV according to patient size, use of iterative reconstruction technique) TECHNICAL DOCUMENTATION: JOB ID: [id number] [facility]- All Rights Reserved Reading location - IP/workstation name: [email or web address]
[2019-08-22] MEDS ORDERED: NORMAL SALINE 1000 ML 1,000 ML IV ONE (20:44)
[2019-08-22] MEDS ORDERED: DEXTROSE 5%-1/2 NORMAL SALINE 1,000 ML IV ONE (20:46)
[2019-08-22 21:08] LABS: HEMATOCRIT 41.7 % (36.0-47.0); HEMOGLOBIN 14.1 g/dL (12.0-15.5); MEAN CORPUSCULAR HEMOGLOBIN 34.2 pg (27.0-33.4); MEAN CORPUSCULAR HGB CONC 33.9 g/dL (32.0-36.0); MEAN CORPUSCULAR VOLUME 101 fl (80-97); PLATELET COUNT 128 10^3/uL (150-450); RED BLOOD COUNT 4.14 10^6/uL (3.72-5.28); RED CELL DISTRIBUTION WIDTH 13.4 % (11.5-14.0); WHITE BLOOD COUNT 10.9 10^3/uL (4.0-10.5)
[2019-08-22 21:24] LABS: ALKALINE PHOSPHATASE 126 U/L (38-126); ANION GAP 12 (5-19); ASPARTATE AMINO TRANSFERASE 19 U/L (14-36); BILIRUBIN,DIRECT 0.2 mg/dL (0.0-0.4); BILIRUBIN,TOTAL 0.5 mg/dL (0.2-1.3); BLOOD UREA NITROGEN 11 mg/dL (7-20); CARBON DIOXIDE 27 mmol/L (22-30); CHLORIDE 96 mmol/L (98-107); GLUCOSE 141 mg/dL (75-110); POTASSIUM 3.6 mmol/L (3.6-5.0); TOTAL PROTEIN 7.4 g/dL (6.3-8.2)
[2019-08-22 21:34] LABS: ABSOLUTE LYMPHOCYTES# (MANUAL) 0.4 10^3/uL (0.5-4.7); ABSOLUTE MONOCYTES # (MANUAL) 0.2 10^3/uL (0.1-1.4); BASOPHILS % (MANUAL) 0 % (0-2); EOSINOPHILS % (MANUAL) 0 % (0-6); LYMPHOCYTES % (MANUAL) 3 % (13-45); MONOCYTES % (MANUAL) 2 % (3-13); PLATELET COMMENT DECREASED; SEGMENTED NEUTROPHILS % (MAN) 75 % (42-78); TOTAL CELLS COUNTED 100
[2019-08-22 21:35] LABS: BAND NEUTROPHILS % (MANUAL) 19 % (3-5)
[2019-08-22] MEDS: LEVALBUTEROL HCL NEB 1.25 MG/3 ML AMPUL NEB SCH (22:08)
[2019-08-22] MEDS: PANTOPRAZOLE SODIUM 40 MG VIAL IV SCH (23:11)
[2019-08-23] MEDS: LEVALBUTEROL HCL NEB 1.25 MG/3 ML AMPUL NEB SCH ×4 (01:57→20:10)
[2019-08-23] MEDS: CLINDAMYCIN 600 MG/D5W RTU 600 MG/50 ML RTUPB IV SCH ×3 (02:36→20:43)
[2019-08-23 04:44] LABS: ABSOLUTE LYMPHOCYTES (AUTO) 0.5 10^3/uL (0.5-4.7); ABSOLUTE MONOCYTES (AUTO) 0.2 10^3/uL (0.1-1.4); ABSOLUTE NEUT (AUTO) 5.9 10^3/uL (1.7-8.2); BASOPHILS % (AUTO) 0.1 % (0-2); HEMATOCRIT 40.7 % (36.0-47.0); HEMOGLOBIN 13.9 g/dL (12.0-15.5); LYMPHOCYTES % (AUTO) 7.9 % (13-45); MEAN CORPUSCULAR HEMOGLOBIN 34.2 pg (27.0-33.4); MEAN CORPUSCULAR HGB CONC 34.2 g/dL (32.0-36.0); MEAN CORPUSCULAR VOLUME 100 fl (80-97); MONOCYTES % (AUTO) 3.7 % (3-13); PLATELET COUNT 136 10^3/uL (150-450); RED BLOOD COUNT 4.08 10^6/uL (3.72-5.28); RED CELL DISTRIBUTION WIDTH 13.3 % (11.5-14.0); SEGMENTED NEUTROPHILS % (AUTO) 88.3 % (42-78); TOTAL CELLS COUNTED % (AUTO) 100 %; WHITE BLOOD COUNT 6.7 10^3/uL (4.0-10.5)
[2019-08-23] MEDS: CEFEPIME 1 GM/D5W RTU 1 GM/50 ML RTUPB IV SCH ×2 (04:52→17:13)
[2019-08-23] MEDS ORDERED: ACETAMINOPHEN 325 MG SUPP.RECT PR ONE (05:20)
[2019-08-23] MEDS ORDERED: ACETAMINOPHEN 650 MG SUPP.RECT PR ONE (05:45)
[2019-08-23] MEDS ORDERED: DIAZEPAM 10 MG/2 ML RECTAL GEL KIT PR PRN (08:10)
[2019-08-23] MEDS ORDERED: SCOPOLAMINE HYDROBROMIDE 1.5 MG PATCH.TD72 TD ONE (08:36)
--- NOTE | 2019-08-23 09:12 | PDOC PROGRESS REPORT ---
Subjective Progress Note for:: 08/23/19 Subjective:: Patient still in the respiratory distressed tachypneic and tachycardic a lot of secretions comes CT abdomen and pelvis no obstructions but the dense consolidations on the right lung Patient also running a fever Overall patient is currently put on a BiPAP Discussed with the caregiver at [facility] [place] [facility] patient is currently DNR discussed with the patient's mother Марина and informed the patient's mother about patient's poor conditions patient is still DNR per mother and inform the mother patients may be not going to make it and understand very well Discussed with the nursing staff in the ER Discussed with the cardiology regarding the heart rate and suggest most likely coming from the respiratory and the sepsis nothing needs to be do Reason For Visit: ASPIRATIONS PNEUMONIA Physical Exam Vital Signs: Temp Pulse Resp BP Pulse Ox 100.8 F H 116 H 49 H 97/68 L 98 08/23/19 07:00 08/23/19 03:35 08/23/19 08:10 08/23/19 07:00 08/23/19 08:10 Intake & Output 08/22/19 08/23/19 08/24/19 06:59 06:59 06:59 Intake Total 1700 Balance 1700 Weight 34.473 kg General appearance: PRESENT: mild distress Eye exam: PRESENT: PERRLA Mouth exam: PRESENT: neck supple Respiratory exam: PRESENT: decreased breath sounds Cardiovascular exam: PRESENT: +S1, +S2, tachycardia GI/Abdominal exam: PRESENT: normal bowel sounds, soft Neurological exam: PRESENT: alert, altered Results Laboratory Results: 08/23/19 04:20 08/22/19 20:59 08/22/19 08/22/19 08/22/19 16:55 16:55 16:55 WBC Cancelled RBC Cancelled Hgb Cancelled Hct Cancelled MCV Cancelled MCH Cancelled MCHC Cancelled RDW Cancelled Plt Count Cancelled Seg Neutrophils % Cancelled Sodium Cancelled Potassium Cancelled Chloride Cancelled Carbon Dioxide Cancelled Anion Gap Cancelled BUN Cancelled Creatinine Cancelled Est GFR ( Amer) Cancelled Est GFR (Non-Af Amer) Cancelled Glucose Cancelled Lactic Acid Cancelled Calcium Cancelled Total Bilirubin Cancelled AST Cancelled Alkaline Phosphatase Cancelled Total Protein Cancelled Albumin Cancelled 08/22/19 08/22/19 08/22/19 19:35 19:35 20:59 WBC Cancelled RBC Cancelled Hgb Cancelled Hct Cancelled MCV Cancelled MCH Cancelled MCHC Cancelled RDW Cancelled Plt Count Cancelled Seg Neutrophils % Cancelled Sodium 134.7 L Potassium 3.6 Chloride 96 L Carbon Dioxide 27 Anion Gap 12 BUN 11 Creatinine 0.28 L Est GFR ( Amer) > 60 Est GFR (Non-Af Amer) Glucose 141 H Lactic Acid 2.9 H Calcium 9.0 Total Bilirubin 0.5 AST 19 Alkaline Phosphatase 126 Total Protein 7.4 Albumin 4.0 08/22/19 08/22/19 08/22/19 20:59 20:59 23:01 WBC 10.9 H RBC 4.14 Hgb 14.1 Hct 41.7 MCV 101 H MCH 34.2 H MCHC 33.9 RDW 13.4 Plt Count 128 L Seg Neutrophils % Not Reportable Sodium Potassium Chloride Carbon Dioxide Anion Gap BUN Creatinine Est GFR ( Amer) Est GFR (Non-Af Amer) Glucose Lactic Acid 1.6 1.5 Calcium Total Bilirubin AST Alkaline Phosphatase Total Protein Albumin 08/23/19 08/23/19 02:17 04:20 WBC 6.7 RBC 4.08 Hgb 13.9 Hct 40.7 MCV 100 H MCH 34.2 H MCHC 34.2 RDW 13.3 Plt Count 136 L Seg Neutrophils % 88.3 H Sodium Potassium Chloride Carbon Dioxide Anion Gap BUN Creatinine Est GFR ( Amer) Est GFR (Non-Af Amer) Glucose Lactic Acid 1.5 Calcium Total Bilirubin AST Alkaline Phosphatase Total Protein Albumin Impressions: Abdomen/Pelvis CT 08/22/19 00:00 IMPRESSION: Right lower lobe pneumonia No CT evidence of bowel obstruction. Gastrojejunostomy tube in good positioning. Chest X-Ray 08/22/19 15:16 IMPRESSION: Right upper lobe airspace disease worrisome for pneumonia Assessment & Plan - Diagnosis (1) Aspiration pneumonia Qualifiers: Laterality: right Lung location: unspecified part of lung Is this a current diagnosis for this admission?: Yes Plan: Continues the broad-spectrum IV antibiotic (2) Cerebral palsy Qualifiers: Cerebral palsy type: unspecified type Qualified Code(s): G80.9 - Cerebral palsy, unspecified Is this a current diagnosis for this admission?: Yes (3) Mental and behavioral problem Is this a current diagnosis for this admission?: Yes (4) Respiratory distress Is this a current diagnosis for this admission?: Yes Plan: Continues on a BiPAP discuss with the Dr. Bey (5) Seizure disorder Is this a current diagnosis for this admission?: Yes Plan: Continues to current seizures medications (6) Tachycardia Is this a current diagnosis for this admission?: Yes Plan: Most likely recently with the sepsis and respiratory distressed continues to monitor continues to IV fluid (7) Uses feeding tube Is this a current diagnosis for this admission?: Yes - Time Time Spent with patient: 25-34 minutes Level of Care: IMCU Medications reviewed and adjusted accordingly: Yes Anticipated discharge: Other Within: Other - Plan Summary Plan Summary: Continues to current medications very extensive discussions with the patient's guardian at [facility] and patient's mother Марина regarding the patient's curre nt conditions with the poor prognosis and patient's probably not going to make it we will continues to supportive care
[2019-08-23 09:28] LABS: PATH REVIEW PATHOLOGIST REVIEWED
[2019-08-23] MEDS: CHOLECALCIFEROL (D3) 1,000 UNIT (25 MCG) TABLET JT SCH (11:06)
[2019-08-23] MEDS: ZONISAMIDE 100 MG CAPSULE JT SCH ×2 (11:08→22:10)
[2019-08-23] MEDS: PANTOPRAZOLE SODIUM 40 MG VIAL IV SCH ×2 (11:11→22:12)
[2019-08-23] MEDS: METOCLOPRAMIDE HCL ORAL SOLN 10 MG/10 ML UDCUP JT SCH ×4 (11:12→22:10)
[2019-08-23] MEDS: ENOXAPARIN SODIUM INJ 40 MG/0.4 ML DISP.SYRIN SUBCUT SCH (11:46)
[2019-08-23] MEDS ORDERED: (PENDING PHARMACY ID) (Promethazine Hcl [Promethazine Hcl] 12.5 MG) RC PRN (14:01)
[2019-08-23] MEDS ORDERED: DIAZEPAM 2.5 MG/0.5 ML RECTAL GEL KIT PR PRN (14:01)
--- NOTE | 2019-08-23 14:18 | PDOC CONSULTATION ---
Consultation Consult Date: 08/23/19 Attending physician:: OLIVERIO BABIN Provider Consulted: YELENA ANDERSON Consult reason:: pna aspiration History of Present Illness Admission Date/PCP: 08/22/19 17:16 OLIVERIO BABIN MD History of Present Illness: KISHAN GUADARRAMA is a 39 year old female resident of [facility] with advanced cerebral palsy and advanced kyphoscoliosis had a onset of tachypnea believed to be associated with aspiration pneumonia which is had many of in the past she does have a PEG at this time she comes in with a respiratory rate greater than 30 and a low-grade temp. Past Medical History Pulmonary Medical History: Reports: Bronchitis, Pneumonia Neurological Medical History: Reports: Seizures GI Medical History: Reports: Gastroesophageal Reflux Disease Social History Information Source: [facility] Records Smoking Status: Never Smoker Frequency of Alcohol Use: None Hx Recreational Drug Use: No Drugs: None Hx Prescription Drug Abuse: No Do you have pets?: No Have you had any respiratory illnesses as a child?: No Have you travelled outside of [place] in the past 12 months?: No - Advance Directive Resuscitation Status: Do Not Resuscitate Family History Parental Family History Reviewed: No Children Family History Reviewed: No Sibling(s) Family History Reviewed.: No Medication/Allergy Home Medications: Cholecalciferol (Vitamin D3) [Vitamin D3 1000 Unit Tablet] 1,000 unit PO DAILY 08/23/19 Diazepam [Diastat] 2.5 mg RC Q6HP PRN 08/23/19 Fluconazole [Diflucan] 150 mg PO Q7D PRN 08/23/19 Fluoride (Sodium) [Prevident 5000] 1 ml DT Q8 08/23/19 Hyoscyamine Sulfate [Hyosyne] 10 ml PO Q6 08/23/19 Ibuprofen [Children's Ibuprofen] 400 mg PO Q6HP PRN 08/23/19 Lansoprazole [Prevacid 30 Mg Odt Tablet] 30 mg PO DAILY 08/23/19 Levalbuterol HCl [Xopenex Neb 0.63 mg/3 ml Ampul] 0.63 mg NEB RTQ6HP PRN 08/23/19 Metoclopramide HCl [Reglan Oral Soln 10 mg/10 ml Udcup] 10 mg PO QID 08/23/19 Metoprolol Succinate [Toprol Xl 25 mg Tab.sr] 12.5 mg PO Q12 08/23/19 Phenobarbital [Phenobarbital 97.2 mg Tablet] 97.2 mg PO QHS 08/23/19 Polyethylene Glycol 3350 [Miralax Powder 17 gm/Packet] 1 packet PO DAILY 08/23/19 Promethazine HCl 12.5 mg RC Q6HP PRN 08/23/19 Zonisamide [Zonegran 100 mg Capsule] 100 mg PO BID 08/23/19 Allergies/Adverse Reactions: No Known Allergies Allergy (Verified 10/13/18 18:08) Review of Systems ROS unobtainable: Due to mental status Physical Exam Vital Signs: Temp Pulse Resp BP Pulse Ox 100.8 F H 116 H 40 H 118/79 100 08/23/19 07:00 08/23/19 03:35 08/23/19 09:00 08/23/19 08:00 08/23/19 09:00 Intake & Output 08/22/19 08/23/19 08/24/19 06:59 06:59 06:59 Intake Total 1700 50 Balance 1700 50 Weight 34.473 kg General appearance: PRESENT: no acute distress, disheveled, obese, well- nourished. ABSENT: cooperative, well-developed Head exam: PRESENT: atraumatic, normocephalic Eye exam: PRESENT: conjunctiva pale, EOMI. ABSENT: nystagmus, scleral icterus Mouth exam: PRESENT: dry mucosa, neck supple Neck exam: ABSENT: carotid bruit, full ROM, JVD, lymphadenopathy, meningismus, tenderness, thyromegaly, tracheal deviation, tracheostomy, other Respiratory exam: PRESENT: decreased breath sounds, prolonged expiratory phas, rales, rhonchi, tachypnea, wheezes. ABSENT: retraction, stridor Cardiovascular exam: PRESENT: RRR, +S1, +S2, tachycardia Pulses: PRESENT: normal radial pulses GI/Abdominal exam: PRESENT: soft, other - PEG tube in place. ABSENT: guarding, mass, rebound, tenderness Extremities exam: PRESENT: pedal edema. ABSENT: calf tenderness, clubbing, full ROM, joint swelling, tenderness Musculoskeletal exam: ABSENT: ambulatory, deformity, dislocation, full ROM, normal inspection Neurological exam: PRESENT: altered, awake Psychiatric exam: PRESENT: flat affect Skin exam: PRESENT: dry, warm Results Laboratory Results: 08/23/19 04:20 08/22/19 20:59 08/22/19 08/22/19 08/22/19 16:55 16:55 16:55 WBC Cancelled RBC Cancelled Hgb Cancelled Hct Cancelled MCV Cancelled MCH Cancelled MCHC Cancelled RDW Cancelled Plt Count Cancelled Seg Neutrophils % Cancelled Sodium Cancelled Potassium Cancelled Chloride Cancelled Carbon Dioxide Cancelled Anion Gap Cancelled BUN Cancelled Creatinine Cancelled Est GFR ( Amer) Cancelled Est GFR (Non-Af Amer) Cancelled Glucose Cancelled Lactic Acid Cancelled Calcium Cancelled Total Bilirubin Cancelled AST Cancelled Alkaline Phosphatase Cancelled Total Protein Cancelled Albumin Cancelled 08/22/19 08/22/19 08/22/19 19:35 19:35 20:59 WBC Cancelled RBC Cancelled Hgb Cancelled Hct Cancelled MCV Cancelled MCH Cancelled MCHC Cancelled RDW Cancelled Plt Count Cancelled Seg Neutrophils % Cancelled Sodium 134.7 L Potassium 3.6 Chloride 96 L Carbon Dioxide 27 Anion Gap 12 BUN 11 Creatinine 0.28 L Est GFR ( Amer) > 60 Est GFR (Non-Af Amer) Glucose 141 H Lactic Acid 2.9 H Calcium 9.0 Total Bilirubin 0.5 AST 19 Alkaline Phosphatase 126 Total Protein 7.4 Albumin 4.0 08/22/19 08/22/19 08/22/19 20:59 20:59 23:01 WBC 10.9 H RBC 4.14 Hgb 14.1 Hct 41.7 MCV 101 H MCH 34.2 H MCHC 33.9 RDW 13.4 Plt Count 128 L Seg Neutrophils % Not Reportable Sodium Potassium Chloride Carbon Dioxide Anion Gap BUN Creatinine Est GFR ( Amer) Est GFR (Non-Af Amer) Glucose Lactic Acid 1.6 1.5 Calcium Total Bilirubin AST Alkaline Phosphatase Total Protein Albumin 08/23/19 08/23/19 02:17 04:20 WBC 6.7 RBC 4.08 Hgb 13.9 Hct 40.7 MCV 100 H MCH 34.2 H MCHC 34.2 RDW 13.3 Plt Count 136 L Seg Neutrophils % 88.3 H Sodium Potassium Chloride Carbon Dioxide Anion Gap BUN Creatinine Est GFR ( Amer) Est GFR (Non-Af Amer) Glucose Lactic Acid 1.5 Calcium Total Bilirubin AST Alkaline Phosphatase Total Protein Albumin Impressions: Abdomen/Pelvis CT 08/22/19 00:00 IMPRESSION: Right lower lobe pneumonia No CT evidence of bowel obstruction. Gastrojejunostomy tube in good positioning. Chest X-Ray 08/22/19 15:16 IMPRESSION: Right upper lobe airspace disease worrisome for pneumonia Assessment & Plan - Diagnosis (1) Aspiration pneumonia Qualifiers: Laterality: right Lung location: unspecified part of lung Is this a current diagnosis for this admission?: Yes Plan: Generic Name Dose Route Start Last Admin Trade Name Freq PRN Reason Stop Dose Admin Cefepime HCl 1 gm in 50 mls @ 100 mls/hr 08/23/19 05:00 08/23/19 05:29 Maxipime Rtu 1 Gm/D5w 50 Ml Premix Bag IV 08/30/19 04:59 Infused Q12@0500,1700 JUDIE Clindamycin Phosphate/Dextrose 600 mg in 50 mls @ 50 mls/hr 08/22/19 18:00 0 08/23/19 12:12 Cleocin Rtu 600 Mg/D5w 50 Ml Premix IV 08/29/19 17:59 Infused Q8A JUDIE NIPPV (2) Cerebral palsy Qualifiers: Cerebral palsy type: unspecified type Qualified Code(s): G80.9 - Cerebral palsy, unspecified Is this a current diagnosis for this admission?: Yes (3) Seizure disorder Is this a current diagnosis for this admission?: Yes Plan: Stable thus far SaO2 99% - Time Time Spent: 30 to 50 Minutes Medications reviewed and adjusted accordingly: Yes
[2019-08-23] MEDS ORDERED: PROMETHAZINE HCL 25 MG SUPP.RECT PR PRN (14:41)
[2019-08-23] MEDS: NORMAL SALINE 1000 ML 1,000 ML IV PRN (17:14)
[2019-08-23] MEDS ORDERED: NORMAL SALINE 1000 ML 1,000 ML IV PRN (17:55)
[2019-08-23] MEDS ORDERED: ZONISAMIDE 100 MG CAPSULE PO SCH (18:00)
[2019-08-23] MEDS ORDERED: METOCLOPRAMIDE HCL ORAL SOLN 10 MG/10 ML UDCUP PO SCH (18:00)
[2019-08-23] MEDS ORDERED: PHENOBARBITAL 20 MG/5 ML UDCUP JT SCH (22:00)
[2019-08-23] MEDS ORDERED: PHENOBARBITAL 97.2 MG TABLET PO SCH (22:00)
[2019-08-23] MEDS: METOPROLOL SUCCINATE 25 MG TAB.SR.24H PO SCH ×2 (22:11→23:09)
[2019-08-23] MEDS ORDERED: PHENOBARBITAL 20 MG/5 ML UDCUP ONE ×2 (22:43→22:56)
[2019-08-24] MEDS: LEVALBUTEROL HCL NEB 1.25 MG/3 ML AMPUL NEB SCH ×4 (01:54→20:36)
[2019-08-24] MEDS: CLINDAMYCIN 600 MG/D5W RTU 600 MG/50 ML RTUPB IV SCH ×3 (03:05→18:37)
[2019-08-24 05:27] LABS: HEMATOCRIT 29.2 % (36.0-47.0); LYMPHOCYTES % (AUTO) 18.3 % (13-45); MEAN CORPUSCULAR HEMOGLOBIN 34.1 pg (27.0-33.4); MEAN CORPUSCULAR HGB CONC 33.8 g/dL (32.0-36.0); MEAN CORPUSCULAR VOLUME 101 fl (80-97); MONOCYTES % (AUTO) 6.1 % (3-13); PLATELET COUNT 115 10^3/uL (150-450); RED BLOOD COUNT 2.89 10^6/uL (3.72-5.28); RED CELL DISTRIBUTION WIDTH 13.2 % (11.5-14.0); SEGMENTED NEUTROPHILS % (AUTO) 75.2 % (42-78); WHITE BLOOD COUNT 3.6 10^3/uL (4.0-10.5)
[2019-08-24 05:28] LABS: ABSOLUTE LYMPHOCYTES (AUTO) 0.7 10^3/uL (0.5-4.7); ABSOLUTE MONOCYTES (AUTO) 0.2 10^3/uL (0.1-1.4); ABSOLUTE NEUT (AUTO) 2.7 10^3/uL (1.7-8.2); BASOPHILS % (AUTO) 0.3 % (0-2); EOSINOPHILS % (AUTO) 0.1 % (0-6); HEMOGLOBIN 9.9 g/dL (12.0-15.5); TOTAL CELLS COUNTED % (AUTO) 100 %
[2019-08-24 05:31] LABS: ANION GAP 9 (5-19); BLOOD UREA NITROGEN 8 mg/dL (7-20); CALCIUM 8.1 mg/dL (8.4-10.2); CARBON DIOXIDE 27 mmol/L (22-30); CHLORIDE 103 mmol/L (98-107); GLUCOSE 92 mg/dL (75-110)
[2019-08-24 05:42] LABS: POTASSIUM 2.9 mmol/L (3.6-5.0)
[2019-08-24] MEDS ORDERED: PANTOPRAZOLE SODIUM 40 MG PACKET.DR GT SCH (06:00)
[2019-08-24] MEDS: CEFEPIME 1 GM/D5W RTU 1 GM/50 ML RTUPB IV SCH ×2 (06:08→17:33)
[2019-08-24] MEDS: NORMAL SALINE 1000 ML 1,000 ML IV PRN (06:09)
[2019-08-24] MEDS ORDERED: POTASSIUM CHLORIDE 20 MEQ PACKET PEG SCH (07:00)
[2019-08-24] MEDS: METOPROLOL SUCCINATE 25 MG TAB.SR.24H PO SCH ×2 (09:05→22:48)
[2019-08-24] MEDS: METOCLOPRAMIDE HCL ORAL SOLN 10 MG/10 ML UDCUP JT SCH ×4 (09:05→22:47)
[2019-08-24] MEDS: POLYETHYLENE GLYCOL 3350 POWDER 17 GM/1 PACKET PO SCH (09:05)
[2019-08-24] MEDS: ZONISAMIDE 100 MG CAPSULE JT SCH ×2 (09:05→22:45)
[2019-08-24] MEDS: POTASSIUM CHLORIDE 20 MEQ PACKET PEG SCH ×2 (09:06→14:24)
[2019-08-24] MEDS: ENOXAPARIN SODIUM INJ 40 MG/0.4 ML DISP.SYRIN SUBCUT SCH (09:06)
[2019-08-24] MEDS: CHOLECALCIFEROL (D3) 1,000 UNIT (25 MCG) TABLET JT SCH (09:06)
[2019-08-24] MEDS: PANTOPRAZOLE SODIUM 40 MG VIAL IV SCH ×2 (09:23→22:51)
--- NOTE | 2019-08-24 09:30 | PDOC PROGRESS REPORT ---
Subjective Progress Note for:: 08/24/19 Subjective:: Patient was put on the BiPAP doing fair seen by the pulmonary Patient still on IV antibiotic Patient's to feeding is currently hold Patient's potassium is low Reason For Visit: ASPIRATIONS PNEUMONIA Physical Exam Vital Signs: Temp Pulse Resp BP Pulse Ox 97.7 F 105 H 21 H 106/89 H 90 L 08/24/19 08:09 08/24/19 08:11 08/24/19 08:11 08/24/19 08:09 08/24/19 08:11 Intake & Output 08/23/19 08/24/19 08/25/19 06:59 06:59 06:59 Intake Total 1700 1104 50 Output Total 1050 Balance 1700 54 50 Weight 34.473 kg 34.6 kg Physical Exam: Currently on a BiPAP General appearance: PRESENT: mild distress Eye exam: PRESENT: PERRLA Mouth exam: PRESENT: neck supple Respiratory exam: PRESENT: decreased breath sounds Cardiovascular exam: PRESENT: +S1, +S2, tachycardia GI/Abdominal exam: PRESENT: normal bowel sounds, soft Additonal comments: G-tube is present Neurological exam: PRESENT: alert, awake Additional comments: Very contracted all 4 extremities and CP posture Results Laboratory Results: 08/24/19 04:06 08/24/19 04:06 08/24/19 08/24/19 04:06 04:06 WBC 3.6 L RBC 2.89 L Hgb 9.9 L D Hct 29.2 L MCV 101 H MCH 34.1 H MCHC 33.8 RDW 13.2 Plt Count 115 L Seg Neutrophils % 75.2 Sodium 138.7 Potassium 2.9 L* Chloride 103 Carbon Dioxide 27 Anion Gap 9 BUN 8 Creatinine 0.23 L Est GFR ( Amer) > 60 Glucose 92 Calcium 8.1 L Impressions: Abdomen/Pelvis CT 08/22/19 00:00 IMPRESSION: Right lower lobe pneumonia No CT evidence of bowel obstruction. Gastrojejunostomy tube in good positioning. Chest X-Ray 08/22/19 15:16 IMPRESSION: Right upper lobe airspace disease worrisome for pneumonia Assessment & Plan - Diagnosis (1) Aspiration pneumonia Qualifiers: Laterality: right Lung location: unspecified part of lung Is this a current diagnosis for this admission?: Yes Plan: Continues the IV antibiotic (2) Cerebral palsy Qualifiers: Cerebral palsy type: unspecified type Qualified Code(s): G80.9 - Cerebral palsy, unspecified Is this a current diagnosis for this admission?: Yes (3) Mental and behavioral problem Is this a current diagnosis for this admission?: Yes (4) Respiratory distress Is this a current diagnosis for this admission?: Yes Plan: Currently on a BiPAP patient is currently a DNR (5) Seizure disorder Is this a current diagnosis for this admission?: Yes Plan: Continues to current home medications (6) Tachycardia Is this a current diagnosis for this admission?: Yes Plan: Most likely recently with the sepsis and respiratory distressed continues to monitor continues to IV fluid (7) Uses feeding tube Is this a current diagnosis for this admission?: Yes - Time Time Spent with patient: 25-34 minutes Level of Care: IMCU Medications reviewed and adjusted accordingly: Yes Anticipated discharge: Other Within: Other - Plan Summary Plan Summary: Continues to current IV antibiotic Replace the potassium Continues the IV fluid and hold the tube feeding for next 24 hours Follow-up with the pulmonary Overall prognosis is poor Update the caregiver
[2019-08-24] MEDS: ENOXAPARIN SODIUM INJ 30 MG/0.3 ML DISP.SYRIN SUBCUT SCH (10:16)
[2019-08-24] MEDS: PHENOBARBITAL 97.2 MG TABLET JT SCH (22:47)
[2019-08-25] MEDS: NORMAL SALINE 1000 ML 1,000 ML IV PRN (00:39)
[2019-08-25] MEDS ORDERED: ACETAMINOPHEN 325 MG TABLET PEG ONE (00:45)
[2019-08-25] MEDS: CLINDAMYCIN 600 MG/D5W RTU 600 MG/50 ML RTUPB IV SCH ×3 (02:29→23:36)
[2019-08-25] MEDS: LEVALBUTEROL HCL NEB 1.25 MG/3 ML AMPUL NEB SCH ×4 (02:37→20:23)
[2019-08-25] MEDS: CEFEPIME 1 GM/D5W RTU 1 GM/50 ML RTUPB IV SCH ×2 (05:32→17:24)
[2019-08-25 05:34] LABS: ABSOLUTE LYMPHOCYTES (AUTO) 0.7 10^3/uL (0.5-4.7); ABSOLUTE MONOCYTES (AUTO) 0.3 10^3/uL (0.1-1.4); ABSOLUTE NEUT (AUTO) 2.4 10^3/uL (1.7-8.2); BASOPHILS % (AUTO) 0.4 % (0-2); EOSINOPHILS % (AUTO) 0.1 % (0-6); HEMATOCRIT 28.1 % (36.0-47.0); HEMOGLOBIN 9.6 g/dL (12.0-15.5); MEAN CORPUSCULAR HEMOGLOBIN 34.5 pg (27.0-33.4); MEAN CORPUSCULAR VOLUME 101 fl (80-97); MONOCYTES % (AUTO) 8.1 % (3-13); PLATELET COUNT 120 10^3/uL (150-450); RED BLOOD COUNT 2.77 10^6/uL (3.72-5.28); SEGMENTED NEUTROPHILS % (AUTO) 71.4 % (42-78); TOTAL CELLS COUNTED % (AUTO) 100 %; WHITE BLOOD COUNT 3.3 10^3/uL (4.0-10.5)
[2019-08-25 05:53] LABS: ANION GAP 13 (5-19); BLOOD UREA NITROGEN 5 mg/dL (7-20); CALCIUM 8.3 mg/dL (8.4-10.2); CARBON DIOXIDE 23 mmol/L (22-30); CHLORIDE 108 mmol/L (98-107); GLUCOSE 92 mg/dL (75-110)
[2019-08-25] MEDS: POTASSIUM CHLORIDE 20 MEQ/50 ML RTU IV SCH ×2 (06:27→09:07)
[2019-08-25] MEDS ORDERED: TOBRAMYCIN SULFATE INJ 80 MG/2 ML VIAL NEB SCH (08:00)
--- NOTE | 2019-08-25 09:00 | PDOC PROGRESS REPORT ---
Subjective Progress Note for:: 08/25/19 Subjective:: Patient is currently doing same Since sputum cultures required a multiple organism including the Pseudomonas currently on IV cefepime and also cover with the clindamycin's for the aspirations with Anaerobic organism Patient still requiring the BiPAP Patients have a low-grade fever yesterday Reason For Visit: ASPIRATIONS PNEUMONIA Physical Exam Vital Signs: Temp Pulse Resp BP Pulse Ox 98.3 F 120 H 28 H 128/87 H 97 08/25/19 07:40 08/25/19 08:00 08/25/19 07:50 08/25/19 07:40 08/25/19 07:50 Intake & Output 08/24/19 08/25/19 08/26/19 06:59 06:59 06:59 Intake Total 1104 2300 Output Total 1050 1350 Balance 54 950 Weight 34.6 kg 36.1 kg General appearance: PRESENT: mild distress Eye exam: PRESENT: PERRLA Mouth exam: PRESENT: neck supple Respiratory exam: PRESENT: decreased breath sounds Cardiovascular exam: PRESENT: +S1, +S2 GI/Abdominal exam: PRESENT: normal bowel sounds, soft Neurological exam: PRESENT: altered Results Laboratory Results: 08/25/19 04:13 08/25/19 04:13 08/25/19 08/25/19 04:13 04:13 WBC 3.3 L RBC 2.77 L Hgb 9.6 L Hct 28.1 L MCV 101 H MCH 34.5 H MCHC 34.0 RDW 13.0 Plt Count 120 L Seg Neutrophils % 71.4 Sodium 143.6 Potassium 3.0 L* Chloride 108 H Carbon Dioxide 23 Anion Gap 13 BUN 5 L Creatinine 0.26 L Est GFR ( Amer) > 60 Glucose 92 Calcium 8.3 L 08/22/19 22:50 Sputum Gram Stain - Final 08/22/19 22:50 Sputum Sputum Culture - Final Pseudomonas Aeruginosa Citrobacter Koseri Corynebacterium Striatum C.albicans/C.dubliniensis Reduced Normal Althea Impressions: Abdomen/Pelvis CT 08/22/19 00:00 IMPRESSION: Right lower lobe pneumonia No CT evidence of bowel obstruction. Gastrojejunostomy tube in good positioning. Chest X-Ray 08/22/19 15:16 IMPRESSION: Right upper lobe airspace disease worrisome for pneumonia Assessment & Plan - Diagnosis (1) Aspiration pneumonia Qualifiers: Laterality: right Lung location: unspecified part of lung Is this a current diagnosis for this admission?: Yes Plan: Continues to IV cefepime and add the tobramycin's nebulizerWhich cover more gram-negative organisms (2) Cerebral palsy Qualifiers: Cerebral palsy type: unspecified type Qualified Code(s): G80.9 - Cerebral palsy, unspecified Is this a current diagnosis for this admission?: Yes (3) Mental and behavioral problem Is this a current diagnosis for this admission?: Yes (4) Respiratory distress Is this a current diagnosis for this admission?: Yes Plan: Continues on a BiPAP We will get the chest x-ray Follow-up with the pulmonary (5) Seizure disorder Is this a current diagnosis for this admission?: Yes Plan: Continues to current home medications (6) Tachycardia Is this a current diagnosis for this admission?: Yes (7) Uses feeding tube Is this a current diagnosis for this admission?: Yes - Time Time Spent with patient: 15-24 minutes Level of Care: IMCU Medications reviewed and adjusted accordingly: Yes Anticipated discharge: Other Within: Other - Plan Summary Plan Summary: Continues to IV antibiotic coverage Start tobramycin nebulizer Continues to monitor the patient Inform the caregiver regarding the patient's current conditions with the poor prognosis currently in the DNR/DNI
[2019-08-25] MEDS: TOBRAMYCIN SULFATE NEB 40 MG/ML 30 ML NEB SCH ×2 (09:01→20:24)
[2019-08-25] MEDS: METOPROLOL SUCCINATE 25 MG TAB.SR.24H PO SCH ×2 (09:07→21:42)
[2019-08-25] MEDS: CHOLECALCIFEROL (D3) 1,000 UNIT (25 MCG) TABLET JT SCH (09:07)
[2019-08-25] MEDS: METOCLOPRAMIDE HCL ORAL SOLN 10 MG/10 ML UDCUP JT SCH ×4 (09:07→21:42)
[2019-08-25] MEDS: PANTOPRAZOLE SODIUM 40 MG VIAL IV SCH ×2 (09:08→21:39)
[2019-08-25] MEDS: ENOXAPARIN SODIUM INJ 30 MG/0.3 ML DISP.SYRIN SUBCUT SCH (09:08)
[2019-08-25] MEDS: POLYETHYLENE GLYCOL 3350 POWDER 17 GM/1 PACKET PO SCH (09:08)
[2019-08-25] MEDS: ZONISAMIDE 100 MG CAPSULE JT SCH ×2 (09:09→21:41)
--- NOTE | 2019-08-25 10:55 | RADIOLOGY REPORT (SQ) ---
EXAM DESCRIPTION: CHEST SINGLE VIEW COMPLETED DATE/TIME: 08/25/2019 10:23 am REASON FOR STUDY: Pneumonia COMPARISON: CT of the abdomen pelvis without contrast from 08/22/2028 AP view of the chest from 08/22/19 20. EXAM PARAMETERS: NUMBER OF VIEWS: One view. TECHNIQUE: An AP view of the chest was obtained. RADIATION DOSE: NA LIMITATIONS: None. FINDINGS: LUNGS AND PLEURA: Evaluation is limited due to the anatomical distortion that results from the severe scoliotic curvature of the thoracolumbar spine. There are patchy multifocal and basilar predominant parenchymal opacities. The contours of the hemidiaphragms are obscured. There is no pne umothorax. MEDIASTINUM AND HILAR STRUCTURES: Stable mediastinal and hilar contours. HEART AND VASCULAR STRUCTURES: Stable cardiac silhouette. BONES: No acute findings. HARDWARE: None in the chest. OTHER: No other finding. IMPRESSION: Limited radiograph of the chest due to the anatomical distortion that results from the s evere scoliotic curvature of the thoracolumbar spine. The patchy multifocal and basilar predominant parenchymal opacities are unchanged and suggest multifocal pneumonia. TECHNICAL DOCUMENTATION: JOB ID: [id number]- All Rights Reserved Reading location - IP/workstation name: [email or web address]
[2019-08-25] MEDS: DEXTROSE 5%-1/2 NORMAL SALINE 1,000 ML IV PRN (15:48)
--- NOTE | 2019-08-25 17:14 | Progress Note ---
Provider Note Provider Note: Again very extensive discussions with the patient's caregiver and nursing facilities and the call who actually spoke with the mother and we talked to the mother patient wants to be a DNR/DNI and again discussed with theron After careful nursing facilities who came in see the patient and discussed with her and just basically a continues to DNR/DNI and she thinks patient's not in the pain but again patient is respiratory rate is going up and her heart rate goes up obviously multifocal pneumonia I believe patient not able to do very well and hopefully change from the DNR to the comfort careBut the care Prater people still wants to continues to be a DNR/DNI and will see how it goes for next 24 hours
[2019-08-25] MEDS: POTASSIUM CHLORIDE 20 MEQ PACKET PEG SCH ×2 (17:24→23:39)
[2019-08-25] MEDS: PHENOBARBITAL 97.2 MG TABLET JT SCH (21:48)
[2019-08-25] MEDS ORDERED: POTASSIUM CHLORIDE 20 MEQ PACKET PEG ONE (22:30)
[2019-08-26] MEDS: LEVALBUTEROL HCL NEB 1.25 MG/3 ML AMPUL NEB SCH ×4 (02:44→19:40)
[2019-08-26] MEDS: CLINDAMYCIN 600 MG/D5W RTU 600 MG/50 ML RTUPB IV SCH ×4 (02:55→23:59)
[2019-08-26] MEDS: CEFEPIME 1 GM/D5W RTU 1 GM/50 ML RTUPB IV SCH ×2 (05:40→17:52)
[2019-08-26 06:24] LABS: ANION GAP 7 (5-19); BLOOD UREA NITROGEN 3 mg/dL (7-20); CALCIUM 8.5 mg/dL (8.4-10.2); CARBON DIOXIDE 27 mmol/L (22-30); CHLORIDE 109 mmol/L (98-107); GLUCOSE 132 mg/dL (75-110); POTASSIUM 3.6 mmol/L (3.6-5.0)
[2019-08-26 07:07] LABS: ABSOLUTE LYMPHOCYTES (AUTO) 1.1 10^3/uL (0.5-4.7); ABSOLUTE MONOCYTES (AUTO) 0.5 10^3/uL (0.1-1.4); ABSOLUTE NEUT (AUTO) 3.7 10^3/uL (1.7-8.2); BASOPHILS % (AUTO) 0.4 % (0-2); EOSINOPHILS % (AUTO) 0.2 % (0-6); HEMATOCRIT 29.9 % (36.0-47.0); LYMPHOCYTES % (AUTO) 20.7 % (13-45); MEAN CORPUSCULAR HGB CONC 33.6 g/dL (32.0-36.0); MEAN CORPUSCULAR VOLUME 101 fl (80-97); MONOCYTES % (AUTO) 9.4 % (3-13); PLATELET COUNT 154 10^3/uL (150-450); RED BLOOD COUNT 2.95 10^6/uL (3.72-5.28); RED CELL DISTRIBUTION WIDTH 13.1 % (11.5-14.0); SEGMENTED NEUTROPHILS % (AUTO) 69.3 % (42-78); TOTAL CELLS COUNTED % (AUTO) 100 %; WHITE BLOOD COUNT 5.3 10^3/uL (4.0-10.5)
[2019-08-26] MEDS: TOBRAMYCIN SULFATE NEB 40 MG/ML 30 ML NEB SCH ×2 (08:13→19:40)
[2019-08-26] MEDS: ENOXAPARIN SODIUM INJ 30 MG/0.3 ML DISP.SYRIN SUBCUT SCH (10:48)
[2019-08-26] MEDS: METOPROLOL SUCCINATE 25 MG TAB.SR.24H PO SCH ×2 (10:48→23:52)
[2019-08-26] MEDS: PANTOPRAZOLE SODIUM 40 MG VIAL IV SCH ×2 (10:48→23:58)
[2019-08-26] MEDS: CHOLECALCIFEROL (D3) 1,000 UNIT (25 MCG) TABLET JT SCH (10:48)
[2019-08-26] MEDS: METOCLOPRAMIDE HCL ORAL SOLN 10 MG/10 ML UDCUP JT SCH ×4 (10:48→23:58)
[2019-08-26] MEDS: ZONISAMIDE 100 MG CAPSULE JT SCH ×2 (10:48→23:59)
[2019-08-26] MEDS: POLYETHYLENE GLYCOL 3350 POWDER 17 GM/1 PACKET PO SCH (10:49)
[2019-08-26] MEDS: DEXTROSE 5%-1/2 NORMAL SALINE 1,000 ML IV PRN (10:49)
--- NOTE | 2019-08-26 15:34 | PDOC PROGRESS REPORT ---
Subjective Progress Note for:: 08/26/19 Subjective:: Patient seen by the bedside, relatively young female with severe cerebral palsy admitted for the management of aspiration pneumonia, she is nonverbal, a DNR status, poor prognosis. There is no new clinical issues to address Reason For Visit: ASPIRATIONS PNEUMONIA Physical Exam Vital Signs: Temp Pulse Resp BP Pulse Ox 98.0 F 91 32 H 119/78 96 08/26/19 11:42 08/26/19 14:26 08/26/19 14:26 08/26/19 11:42 08/26/19 14:26 Intake & Output 08/25/19 08/26/19 08/27/19 06:59 06:59 06:59 Intake Total 2300 1250 1100 Output Total 1350 2025 Balance 950 -775 1100 Weight 36.1 kg 35.5 kg General appearance: PRESENT: no acute distress Eye exam: PRESENT: PERRLA Respiratory exam: PRESENT: rales Cardiovascular exam: PRESENT: +S1, +S2 GI/Abdominal exam: PRESENT: soft Neurological exam: PRESENT: alert Results Laboratory Results: 08/26/19 06:41 08/26/19 04:44 08/26/19 08/26/19 08/26/19 04:44 04:44 06:41 WBC Cancelled 5.3 RBC Cancelled 2.95 L Hgb Cancelled 10.0 L Hct Cancelled 29.9 L MCV Cancelled 101 H MCH Cancelled 34.0 H MCHC Cancelled 33.6 RDW Cancelled 13.1 Plt Count Cancelled 154 Seg Neutrophils % Cancelled 69.3 Sodium 142.7 Potassium 3.6 Chloride 109 H Carbon Dioxide 27 Anion Gap 7 BUN 3 L Creatinine 0.23 L Est GFR ( Amer) > 60 Glucose 132 H Calcium 8.5 Impressions: Abdomen/Pelvis CT 08/22/19 00:00 IMPRESSION: Right lower lobe pneumonia No CT evidence of bowel obstruction. Gastrojejunostomy tube in good positioning. Chest X-Ray 08/25/19 00:00 IMPRESSION: Limited radiograph of the chest due to the anatomical distortion that results from the severe scoliotic curvature of the thoracolumbar spine. The patchy multifocal and basilar predominant parenchymal opacities are unchanged and suggest multifocal pneumonia. Assessment & Plan - Diagnosis (1) Aspiration pneumonia Qualifiers: Laterality: right Lung location: unspecified part of lung Is this a current diagnosis for this admission?: Yes Plan: Continue present line of management, overall prognosis is very poor - Time Time Spent with patient: 15-24 minutes
[2019-08-26] MEDS: PHENOBARBITAL 97.2 MG TABLET JT SCH (23:59)
[2019-08-27] MEDS: LEVALBUTEROL HCL NEB 1.25 MG/3 ML AMPUL NEB SCH ×4 (01:59→19:56)
[2019-08-27] MEDS: CEFEPIME 1 GM/D5W RTU 1 GM/50 ML RTUPB IV SCH ×2 (05:25→17:09)
[2019-08-27] MEDS: CLINDAMYCIN 600 MG/D5W RTU 600 MG/50 ML RTUPB IV SCH ×3 (05:25→21:20)
[2019-08-27] MEDS: DEXTROSE 5%-1/2 NORMAL SALINE 1,000 ML IV PRN (05:29)
[2019-08-27] MEDS: TOBRAMYCIN SULFATE NEB 40 MG/ML 30 ML NEB SCH ×2 (07:55→19:56)
[2019-08-27] MEDS: METOPROLOL SUCCINATE 25 MG TAB.SR.24H PO SCH ×2 (09:41→21:21)
[2019-08-27] MEDS: CHOLECALCIFEROL (D3) 1,000 UNIT (25 MCG) TABLET JT SCH (09:42)
[2019-08-27] MEDS: POLYETHYLENE GLYCOL 3350 POWDER 17 GM/1 PACKET PO SCH (09:42)
[2019-08-27] MEDS: ZONISAMIDE 100 MG CAPSULE JT SCH ×2 (09:42→21:21)
[2019-08-27] MEDS: METOCLOPRAMIDE HCL ORAL SOLN 10 MG/10 ML UDCUP JT SCH ×4 (09:42→21:21)
[2019-08-27] MEDS: PANTOPRAZOLE SODIUM 40 MG VIAL IV SCH ×2 (09:52→21:21)
[2019-08-27] MEDS: ENOXAPARIN SODIUM INJ 30 MG/0.3 ML DISP.SYRIN SUBCUT SCH (09:58)
--- NOTE | 2019-08-27 15:14 | PDOC PROGRESS REPORT ---
Subjective Progress Note for:: 08/27/19 Subjective:: Patient's condition is about the same, there is no new complaints Reason For Visit: ASPIRATIONS PNEUMONIA Physical Exam Vital Signs: Temp Pulse Resp BP Pulse Ox 98.2 F 102 H 29 H 97/59 L 94 08/27/19 12:38 08/27/19 14:17 08/27/19 14:17 08/27/19 12:38 08/27/19 14:17 Intake & Output 08/26/19 08/27/19 08/28/19 06:59 06:59 06:59 Intake Total 1250 2250 100 Output Total 5 1600 Balance -775 650 100 Weight 35.5 kg 36.1 kg General appearance: PRESENT: no acute distress Eye exam: PRESENT: PERRLA Respiratory exam: PRESENT: clear to auscultation pretty Cardiovascular exam: PRESENT: +S1, +S2 Results Laboratory Results: 08/26/19 06:41 08/26/19 04:44 Impressions: Abdomen/Pelvis CT 08/22/19 00:00 IMPRESSION: Right lower lobe pneumonia No CT evidence of bowel obstruction. Gastrojejunostomy tube in good positioning. Chest X-Ray 08/25/19 00:00 IMPRESSION: Limited radiograph of the chest due to the anatomical distortion that results from the severe scoliotic curvature of the thoracolumbar spine. The patchy multifocal and basilar predominant parenchymal opacities are unchanged and suggest multifocal pneumonia. Assessment & Plan - Diagnosis (1) Aspiration pneumonia Qualifiers: Laterality: right Lung location: unspecified part of lung Is this a current diagnosis for this admission?: Yes - Time Time Spent with patient: Less than 15 minutes
[2019-08-27] MEDS: PHENOBARBITAL 97.2 MG TABLET JT SCH (21:21)
[2019-08-27] MEDS: ACETAMINOPHEN 325 MG TABLET PEG PRN (21:22)
[2019-08-28] MEDS: LEVALBUTEROL HCL NEB 1.25 MG/3 ML AMPUL NEB SCH ×4 (01:53→20:19)
[2019-08-28] MEDS: DEXTROSE 5%-1/2 NORMAL SALINE 1,000 ML IV PRN (02:13)
[2019-08-28] MEDS: CEFEPIME 1 GM/D5W RTU 1 GM/50 ML RTUPB IV SCH ×2 (04:28→17:57)
[2019-08-28] MEDS: CLINDAMYCIN 600 MG/D5W RTU 600 MG/50 ML RTUPB IV SCH ×3 (05:43→22:26)
[2019-08-28] MEDS: TOBRAMYCIN SULFATE NEB 40 MG/ML 30 ML NEB SCH ×2 (08:00→20:22)
--- NOTE | 2019-08-28 08:13 | PDOC PROGRESS REPORT ---
Subjective Progress Note for:: 08/28/19 Subjective:: Patient is currently still doing same Still requiring BiPAP all the times Still have overnight fever Reason For Visit: ASPIRATIONS PNEUMONIA Physical Exam Vital Signs: Temp Pulse Resp BP Pulse Ox 98.9 F 81 22 H 104/56 L 94 08/28/19 03:49 08/28/19 07:57 08/28/19 07:57 08/28/19 03:49 08/28/19 07:57 Intake & Output 08/27/19 08/28/19 08/29/19 06:59 06:59 06:59 Intake Total 2250 1250 Output Total 1600 2450 Balance 650 -1200 Weight 36.1 kg 35.1 kg General appearance: PRESENT: mild distress Eye exam: PRESENT: PERRLA Mouth exam: PRESENT: neck supple Respiratory exam: PRESENT: decreased breath sounds Cardiovascular exam: PRESENT: +S1, +S2 GI/Abdominal exam: PRESENT: normal bowel sounds, soft Neurological exam: PRESENT: altered Results Laboratory Results: 08/26/19 06:41 08/26/19 04:44 08/22/19 19:35 Blood Blood Culture - Final NO GROWTH IN 5 DAYS 08/22/19 16:55 Blood Blood Culture - Final NO GROWTH IN 5 DAYS Impressions: Abdomen/Pelvis CT 08/22/19 00:00 IMPRESSION: Right lower lobe pneumonia No CT evidence of bowel obstruction. Gastrojejunostomy tube in good positioning. Chest X-Ray 08/25/19 00:00 IMPRESSION: Limited radiograph of the chest due to the anatomical distortion that results from the severe scoliotic curvature of the thoracolumbar spine. The patchy multifocal and basilar predominant parenchymal opacities are unchanged and suggest multifocal pneumonia. Assessment & Plan - Diagnosis (1) Aspiration pneumonia Qualifiers: Laterality: right Lung location: unspecified part of lung Is this a current diagnosis for this admission?: Yes (2) Cerebral palsy Qualifiers: Cerebral palsy type: unspecified type Qualified Code(s): G80.9 - Cerebral palsy, unspecified Is this a current diagnosis for this admission?: Yes (3) Mental and behavioral problem Is this a current diagnosis for this admission?: Yes (4) Respiratory distress Is this a current diagnosis for this admission?: Yes (5) Seizure disorder Is this a current diagnosis for this admission?: Yes (6) Tachycardia Is this a current diagnosis for this admission?: Yes (7) Uses feeding tube Is this a current diagnosis for this admission?: Yes - Time Time Spent with patient: 15-24 minutes Level of Care: IMCU Medications reviewed and adjusted accordingly: Yes Anticipated discharge: Other Within: Other - Plan Summary Plan Summary: Continues the tobramycin nebulizer treatments continues to IV cefepime and clindamycin's repeat the chest x-ray get the CBC overall prognosis is still very poor will discuss with the caregiver today
[2019-08-28 09:07] LABS: ABSOLUTE LYMPHOCYTES (AUTO) 1.2 10^3/uL (0.5-4.7); ABSOLUTE MONOCYTES (AUTO) 0.4 10^3/uL (0.1-1.4); ABSOLUTE NEUT (AUTO) 2.8 10^3/uL (1.7-8.2); BASOPHILS % (AUTO) 0.4 % (0-2); EOSINOPHILS % (AUTO) 0.8 % (0-6); HEMOGLOBIN 10.9 g/dL (12.0-15.5); LYMPHOCYTES % (AUTO) 27.6 % (13-45); MEAN CORPUSCULAR HEMOGLOBIN 33.9 pg (27.0-33.4); MEAN CORPUSCULAR VOLUME 100 fl (80-97); MONOCYTES % (AUTO) 8.5 % (3-13); PLATELET COUNT 171 10^3/uL (150-450); RED BLOOD COUNT 3.22 10^6/uL (3.72-5.28); SEGMENTED NEUTROPHILS % (AUTO) 62.7 % (42-78); TOTAL CELLS COUNTED % (AUTO) 100 %; WHITE BLOOD COUNT 4.4 10^3/uL (4.0-10.5)
[2019-08-28 09:25] LABS: ANION GAP 7 (5-19); BLOOD UREA NITROGEN 4 mg/dL (7-20); CALCIUM 8.1 mg/dL (8.4-10.2); CARBON DIOXIDE 29 mmol/L (22-30); CHLORIDE 101 mmol/L (98-107); GLUCOSE 137 mg/dL (75-110)
[2019-08-28 09:28] LABS: POTASSIUM 2.2 mmol/L (3.6-5.0)
--- NOTE | 2019-08-28 10:12 | RADIOLOGY REPORT (SQ) ---
EXAM DESCRIPTION: CHEST SINGLE VIEW COMPLETED DATE/TIME: 08/28/2019 9:49 am REASON FOR STUDY: follow up PNA COMPARISON: 08/25/2019 EXAM PARAMETERS: NUMBER OF VIEWS: One view. TECHNIQUE: Single frontal radiographic view of the chest acquired. RADIATION DOSE: NA LIMITATIONS: Body habitus FINDINGS: LUNGS AND PLEURA: Residual right lower lobe infiltrate. Left lung field is relatively estrella ar. MEDIASTINUM AND HILAR STRUCTURES: No masses. Contour normal. HEART AND VASCULAR STRUCTURES: Heart normal in size. Normal vasculature. BONES: No acute findings. HARDWARE: None in the chest. OTHER: No other significant finding. IMPRESSION: Residual right lower lobe infiltrate. TECHNICAL DOCUMENTATION: JOB ID: [id number] [employer]- All Rights Reserved Reading location - IP/workstation name: [email or web address]
[2019-08-28] MEDS: ENOXAPARIN SODIUM INJ 30 MG/0.3 ML DISP.SYRIN SUBCUT SCH (11:00)
[2019-08-28] MEDS: POTASSIUM CHLORIDE 20 MEQ PACKET PO SCH ×2 (11:09→22:25)
[2019-08-28] MEDS: POTASSI CL 40 MEQ/D5-1/2NS 1L 40 MEQ/1,000 ML RTUINJ IV PRN ×2 (11:09→22:38)
[2019-08-28] MEDS: POLYETHYLENE GLYCOL 3350 POWDER 17 GM/1 PACKET PO SCH (11:10)
[2019-08-28] MEDS: POTASSI CL 20 MEQ/50 ML RIDER 20 MEQ/50 ML RTUPB IV SCH ×2 (11:10→14:44)
[2019-08-28] MEDS: PANTOPRAZOLE SODIUM 40 MG VIAL IV SCH ×2 (11:10→22:30)
[2019-08-28] MEDS: METOCLOPRAMIDE HCL ORAL SOLN 10 MG/10 ML UDCUP JT SCH ×4 (11:11→22:24)
[2019-08-28] MEDS: ZONISAMIDE 100 MG CAPSULE JT SCH ×2 (11:11→22:24)
[2019-08-28] MEDS: METOPROLOL SUCCINATE 25 MG TAB.SR.24H PO SCH ×2 (11:11→22:27)
[2019-08-28] MEDS: CHOLECALCIFEROL (D3) 1,000 UNIT (25 MCG) TABLET JT SCH (11:12)
[2019-08-28] MEDS: ACETAMINOPHEN 325 MG TABLET PEG PRN ×2 (11:50→22:27)
[2019-08-28] MEDS: PHENOBARBITAL 97.2 MG TABLET JT SCH (22:24)
[2019-08-29] MEDS: POTASSI CL 40 MEQ/D5-1/2NS 1L 40 MEQ/1,000 ML RTUINJ IV PRN
[2019-08-29] MEDS: LEVALBUTEROL HCL NEB 1.25 MG/3 ML AMPUL NEB SCH ×4 (02:48→20:44)
[2019-08-29] MEDS: CEFEPIME 1 GM/D5W RTU 1 GM/50 ML RTUPB IV SCH ×2 (04:24→16:57)
[2019-08-29] MEDS: CLINDAMYCIN 600 MG/D5W RTU 600 MG/50 ML RTUPB IV SCH ×2 (05:28→16:54)
[2019-08-29] MEDS: TOBRAMYCIN SULFATE NEB 40 MG/ML 30 ML NEB SCH ×2 (08:28→20:44)
--- NOTE | 2019-08-29 08:41 | PDOC PROGRESS REPORT ---
Subjective Progress Note for:: 08/29/19 Subjective:: Patient is currently doing same Patient still on the BiPAP 35%'s Reason For Visit: ASPIRATIONS PNEUMONIA Physical Exam Vital Signs: Temp Pulse Resp BP Pulse Ox 99.0 F 119 H 28 H 119/80 96 08/29/19 03:11 08/29/19 03:11 08/29/19 04:45 08/29/19 03:11 08/29/19 04:45 Intake & Output 08/28/19 08/29/19 08/30/19 06:59 06:59 06:59 Intake Total 1350 1300 Output Total 2450 1775 Balance -1100 -475 Weight 35.1 kg 36.3 kg General appearance: PRESENT: no acute distress Head exam: PRESENT: atraumatic, normocephalic Eye exam: PRESENT: conjunctiva pink, EOMI, PERRLA. ABSENT: scleral icterus Ear exam: PRESENT: normal external ear exam Mouth exam: PRESENT: moist, tongue midline Neck exam: PRESENT: full ROM. ABSENT: carotid bruit, JVD, lymphadenopathy, thyromegaly Respiratory exam: PRESENT: decreased breath sounds Cardiovascular exam: PRESENT: RRR. ABSENT: diastolic murmur, rubs, systolic murmur Vascular exam: PRESENT: normal capillary refill GI/Abdominal exam: PRESENT: normal bowel sounds, soft. ABSENT: distended, guarding, mass, organolmegaly, rebound, tenderness Rectal exam: PRESENT: deferred Neurological exam: PRESENT: altered. ABSENT: motor sensory deficit Psychiatric exam: PRESENT: appropriate affect, normal mood. ABSENT: homicidal ideation, suicidal ideation Skin exam: PRESENT: dry, intact, warm. ABSENT: cyanosis, rash Results Laboratory Results: 08/28/19 08:50 08/28/19 08:50 08/28/19 08/28/19 08:50 08:50 WBC 4.4 RBC 3.22 L Hgb 10.9 L Hct 32.0 L MCV 100 H MCH 33.9 H MCHC 34.0 RDW 13.0 Plt Count 171 Seg Neutrophils % 62.7 Sodium 137.1 Potassium 2.2 L* Chloride 101 Carbon Dioxide 29 Anion Gap 7 BUN 4 L Creatinine 0.27 L Est GFR ( Amer) > 60 Glucose 137 H Calcium 8.1 L Impressions: Abdomen/Pelvis CT 08/22/19 00:00 IMPRESSION: Right lower lobe pneumonia No CT evidence of bowel obstruction. Gastrojejunostomy tube in good positioning. Chest X-Ray 08/28/19 00:00 IMPRESSION: Residual right lower lobe infiltrate. Assessment & Plan - Diagnosis (1) Aspiration pneumonia Qualifiers: Laterality: right Lung location: unspecified part of lung Is this a current diagnosis for this admission?: Yes (2) Cerebral palsy Qualifiers: Cerebral palsy type: unspecified type Qualified Code(s): G80.9 - Cerebral palsy, unspecified Is this a current diagnosis for this admission?: Yes (3) Mental and behavioral problem Is this a current diagnosis for this admission?: Yes (4) Respiratory distress Is this a current diagnosis for this admission?: Yes (5) Seizure disorder Is this a current diagnosis for this admission?: Yes (6) Tachycardia Is this a current diagnosis for this admission?: Yes (7) Uses feeding tube Is this a current diagnosis for this admission?: Yes - Time Time Spent with patient: 15-24 minutes Level of Care: IMCU Medications reviewed and adjusted accordingly: Yes Anticipated discharge: Other Within: Other - Plan Summary Plan Summary: Continues the IV antibiotics Discussed with the respiratory to wean off from the BiPAP We will continue to monitor We will repeat the potassium lab today Overall prognosis is very poor
[2019-08-29 10:32] LABS: ANION GAP 12 (5-19); BLOOD UREA NITROGEN 3 mg/dL (7-20); CARBON DIOXIDE 20 mmol/L (22-30); CHLORIDE 102 mmol/L (98-107); GLUCOSE 149 mg/dL (75-110); POTASSIUM 4.6 mmol/L (3.6-5.0)
[2019-08-29] MEDS: POLYETHYLENE GLYCOL 3350 POWDER 17 GM/1 PACKET PO SCH (12:38)
[2019-08-29] MEDS: CHOLECALCIFEROL (D3) 1,000 UNIT (25 MCG) TABLET JT SCH (12:39)
[2019-08-29] MEDS: POTASSIUM CHLORIDE 20 MEQ PACKET PO SCH ×2 (12:39→22:12)
[2019-08-29] MEDS: METOPROLOL SUCCINATE 25 MG TAB.SR.24H PO SCH ×2 (12:39→22:12)
[2019-08-29] MEDS: METOCLOPRAMIDE HCL ORAL SOLN 10 MG/10 ML UDCUP JT SCH ×3 (12:39→22:12)
[2019-08-29] MEDS: ZONISAMIDE 100 MG CAPSULE JT SCH ×2 (13:02→22:12)
[2019-08-29] MEDS: PANTOPRAZOLE SODIUM 40 MG VIAL IV SCH (13:03)
[2019-08-29] MEDS: ENOXAPARIN SODIUM INJ 30 MG/0.3 ML DISP.SYRIN SUBCUT SCH (13:08)
--- NOTE | 2019-08-29 13:57 | PDOC PROGRESS REPORT ---
Subjective Progress Note for:: 08/29/19 Subjective:: altered but awake Reason For Visit: ASPIRATIONS PNEUMONIA Physical Exam Vital Signs: Temp Pulse Resp BP Pulse Ox 99.6 F 127 H 45 H 139/88 H 95 08/29/19 12:01 08/29/19 13:15 08/29/19 13:15 08/29/19 12:01 08/29/19 13:15 Intake & Output 08/28/19 08/29/19 08/30/19 06:59 06:59 06:59 Intake Total 1350 1300 Output Total 2450 1775 Balance -1100 -475 Weight 35.1 kg 36.3 kg General appearance: PRESENT: well-nourished. ABSENT: thin, well-developed Head exam: PRESENT: atraumatic, normocephalic Eye exam: PRESENT: conjunctiva pale, EOMI. ABSENT: nystagmus Mouth exam: PRESENT: dry mucosa, neck supple, tongue midline Neck exam: ABSENT: carotid bruit, full ROM, JVD, lymphadenopathy, meningismus, tenderness, thyromegaly, tracheal deviation, tracheostomy, other Respiratory exam: PRESENT: crackles, decreased breath sounds, prolonged expiratory phas, rhonchi, tachypnea, unlabored, wheezes. ABSENT: retraction, stridor Cardiovascular exam: PRESENT: RRR, +S1, +S2, tachycardia Pulses: PRESENT: normal radial pulses GI/Abdominal exam: PRESENT: soft. ABSENT: guarding, mass, rebound, tenderness Extremities exam: ABSENT: calf tenderness, clubbing, full ROM, joint swelling Musculoskeletal exam: ABSENT: ambulatory, dislocation, full ROM Neurological exam: PRESENT: altered, awake Psychiatric exam: PRESENT: flat affect Focused psych exam: PRESENT: internal stimuli Skin exam: PRESENT: dry, warm Results Laboratory Results: 08/28/19 08:50 08/29/19 09:27 08/29/19 09:27 Sodium 134.1 L Potassium 4.6 Chloride 102 Carbon Dioxide 20 L Anion Gap 12 BUN 3 L Creatinine 0.25 L Est GFR ( Amer) > 60 Glucose 149 H Calcium 9.0 Impressions: Abdomen/Pelvis CT 08/22/19 00:00 IMPRESSION: Right lower lobe pneumonia No CT evidence of bowel obstruction. Gastrojejunostomy tube in good positioning. Chest X-Ray 08/28/19 00:00 IMPRESSION: Residual right lower lobe infiltrate. Assessment & Plan - Diagnosis (1) Aspiration pneumonia Qualifiers: Laterality: right Lung location: unspecified part of lung Is this a current diagnosis for this admission?: Yes Plan: Slight improvement radiographically however patient is profoundly tachypneic simona pite BiPAP has very low tidal volumes in lower minute ventilation is very low Patient is to be trached and put on mechanical ventilation there is no reliable treatment for her neuromuscular disabilities and chronic aspiration. Under the circumstances comfort care may be warranted (2) Cerebral palsy Qualifiers: Cerebral palsy type: unspecified type Qualified Code(s): G80.9 - Cerebral palsy, unspecified Is this a current diagnosis for this admission?: Yes Plan: Internalizes any stimuli she may be feeling overall no change (3) Seizure disorder Is this a current diagnosis for this admission?: Yes - Time Time Spent with patient: 40 Level of Care: IMCU
[2019-08-29] MEDS ORDERED: ACETAMINOPHEN 325 MG SUPP.RECT PR ONE (16:23)
[2019-08-29] MEDS ORDERED: ACETAMINOPHEN 650 MG SUPP.RECT PR PRN (16:33)
[2019-08-29] MEDS: PHENOBARBITAL 97.2 MG TABLET JT SCH (22:12)
[2019-08-30] MEDS: LEVALBUTEROL HCL NEB 1.25 MG/3 ML AMPUL NEB SCH ×4 (02:56→20:19)
[2019-08-30] MEDS: POTASSI CL 40 MEQ/D5-1/2NS 1L 40 MEQ/1,000 ML RTUINJ IV PRN (04:38)
[2019-08-30 05:47] LABS: ABSOLUTE BASOPHILS # (AUTO) 0.1 10^3/uL (0.0-0.2); ABSOLUTE LYMPHOCYTES (AUTO) 2.2 10^3/uL (0.5-4.7); ABSOLUTE MONOCYTES (AUTO) 0.9 10^3/uL (0.1-1.4); ABSOLUTE NEUT (AUTO) 6.3 10^3/uL (1.7-8.2); BASOPHILS % (AUTO) 0.5 % (0-2); EOSINOPHILS % (AUTO) 0.4 % (0-6); HEMATOCRIT 36.4 % (36.0-47.0); HEMOGLOBIN 12.6 g/dL (12.0-15.5); LYMPHOCYTES % (AUTO) 23.1 % (13-45); MEAN CORPUSCULAR HEMOGLOBIN 34.2 pg (27.0-33.4); MEAN CORPUSCULAR HGB CONC 34.5 g/dL (32.0-36.0); MEAN CORPUSCULAR VOLUME 99 fl (80-97); MONOCYTES % (AUTO) 9.4 % (3-13); PLATELET COUNT 299 10^3/uL (150-450); RED BLOOD COUNT 3.67 10^6/uL (3.72-5.28); RED CELL DISTRIBUTION WIDTH 13.2 % (11.5-14.0); SEGMENTED NEUTROPHILS % (AUTO) 66.6 % (42-78); TOTAL CELLS COUNTED % (AUTO) 100 %
[2019-08-30 05:48] LABS: WHITE BLOOD COUNT 9.4 10^3/uL (4.0-10.5)
[2019-08-30 06:07] LABS: ANION GAP 10 (5-19); BLOOD UREA NITROGEN 7 mg/dL (7-20); CARBON DIOXIDE 22 mmol/L (22-30); CHLORIDE 102 mmol/L (98-107); GLUCOSE 136 mg/dL (75-110); POTASSIUM 4.1 mmol/L (3.6-5.0)
[2019-08-30] MEDS: TOBRAMYCIN SULFATE NEB 40 MG/ML 30 ML NEB SCH ×2 (08:03→20:19)
--- NOTE | 2019-08-30 09:24 | PDOC PROGRESS REPORT ---
Subjective Progress Note for:: 08/30/19 Subjective:: Patient is currently doing still same Since seen by the pulmonary and suggest is difficult to wean off from the BiPAP and I think this most likely a comfort care is best way to go Discussed the caregiver today to make her more comfortable Reason For Visit: ASPIRATIONS PNEUMONIA Physical Exam Vital Signs: Temp Pulse Resp BP Pulse Ox 98.6 F 127 H 32 H 107/74 93 08/30/19 07:21 08/30/19 08:03 08/30/19 08:03 08/30/19 07:21 08/30/19 08:03 Intake & Output 08/29/19 08/30/19 08/31/19 06:59 06:59 06:59 Intake Total 1300 0 Output Total 1775 1725 Balance -475 -1725 Weight 36.3 kg 31.7 kg General appearance: PRESENT: mild distress Eye exam: PRESENT: PERRLA Mouth exam: PRESENT: neck supple GI/Abdominal exam: PRESENT: normal bowel sounds, soft Neurological exam: PRESENT: alert, altered Results Laboratory Results: 08/30/19 05:24 08/30/19 05:24 08/29/19 08/30/19 08/30/19 09:27 05:24 05:24 WBC 9.4 D RBC 3.67 L Hgb 12.6 Hct 36.4 MCV 99 H MCH 34.2 H MCHC 34.5 RDW 13.2 Plt Count 299 Seg Neutrophils % 66.6 Sodium 134.1 L 133.8 L Potassium 4.6 4.1 Chloride 102 102 Carbon Dioxide 20 L 22 Anion Gap 12 10 BUN 3 L 7 Creatinine 0.25 L 0.31 L Est GFR ( Amer) > 60 > 60 Glucose 149 H 136 H Calcium 9.0 9.0 Impressions: Abdomen/Pelvis CT 08/22/19 00:00 IMPRESSION: Right lower lobe pneumonia No CT evidence of bowel obstruction. Gastrojejunostomy tube in good positioning. Chest X-Ray 08/28/19 00:00 IMPRESSION: Residual right lower lobe infiltrate. Assessment & Plan - Diagnosis (1) Aspiration pneumonia Qualifiers: Laterality: right Lung location: unspecified part of lung Is this a current diagnosis for this admission?: Yes (2) Cerebral palsy Qualifiers: Cerebral palsy type: unspecified type Qualified Code(s): G80.9 - Cerebral palsy, unspecified Is this a current diagnosis for this admission?: Yes (3) Mental and behavioral problem Is this a current diagnosis for this admission?: Yes (4) Respiratory distress Is this a current diagnosis for this admission?: Yes (5) Seizure disorder Is this a current diagnosis for this admission?: Yes (6) Tachycardia Is this a current diagnosis for this admission?: Yes (7) Uses feeding tube Is this a current diagnosis for this admission?: Yes - Time Time Spent with patient: 15-24 minutes Level of Care: TELE Medications reviewed and adjusted accordingly: Yes Anticipated discharge: Other Within: Other - Plan Summary Plan Summary: Continues to current medications
[2019-08-30] MEDS: POLYETHYLENE GLYCOL 3350 POWDER 17 GM/1 PACKET PO SCH (11:34)
[2019-08-30] MEDS: POTASSIUM CHLORIDE 20 MEQ PACKET PO SCH (12:00)
[2019-08-30] MEDS: CHOLECALCIFEROL (D3) 1,000 UNIT (25 MCG) TABLET JT SCH (12:00)
[2019-08-30] MEDS: METOPROLOL SUCCINATE 25 MG TAB.SR.24H PO SCH ×2 (12:00→21:55)
[2019-08-30] MEDS: ENOXAPARIN SODIUM INJ 30 MG/0.3 ML DISP.SYRIN SUBCUT SCH (12:00)
[2019-08-30] MEDS: ZONISAMIDE 100 MG CAPSULE JT SCH ×2 (12:03→21:56)
[2019-08-30] MEDS: METOCLOPRAMIDE HCL ORAL SOLN 10 MG/10 ML UDCUP JT SCH ×4 (12:03→21:57)
[2019-08-30] MEDS: PHENOBARBITAL 97.2 MG TABLET JT SCH (21:55)
[2019-08-30] MEDS: CEFEPIME 1 GM/D5W RTU 1 GM/50 ML RTUPB IV SCH (21:58)
[2019-08-31] MEDS: POTASSI CL 40 MEQ/D5-1/2NS 1L 40 MEQ/1,000 ML RTUINJ IV PRN ×2 (00:55→20:34)
[2019-08-31] MEDS: LEVALBUTEROL HCL NEB 1.25 MG/3 ML AMPUL NEB SCH ×4 (02:06→20:15)
[2019-08-31 05:59] LABS: ANION GAP 10 (5-19); BLOOD UREA NITROGEN 6 mg/dL (7-20); CALCIUM 8.7 mg/dL (8.4-10.2); CARBON DIOXIDE 21 mmol/L (22-30); CHLORIDE 103 mmol/L (98-107); GLUCOSE 126 mg/dL (75-110); POTASSIUM 3.8 mmol/L (3.6-5.0)
[2019-08-31] MEDS: TOBRAMYCIN SULFATE NEB 40 MG/ML 30 ML NEB SCH ×2 (07:41→20:16)
[2019-08-31] MEDS ORDERED: LORAZEPAM INJ 2 MG/1 ML VIAL IV PRN (08:14)
--- NOTE | 2019-08-31 08:24 | PDOC PROGRESS REPORT ---
Subjective Progress Note for:: 08/31/19 Subjective:: Patient is currently doing same Discussed with the patient's caregiver at the [facility] discussed with the patient's family mother patient at this point going to be a comfort measure due to the versus worsening the conditions with nothing much can be done due to the patient's underlying comorbidity Reason For Visit: ASPIRATIONS PNEUMONIA Physical Exam Vital Signs: Temp Pulse Resp BP Pulse Ox 98.5 F 139 H 33 H 91/58 L 98 08/31/19 03:06 08/31/19 07:41 08/31/19 07:41 08/31/19 03:06 08/31/19 07:41 Intake & Output 08/30/19 08/31/19 09/01/19 06:59 06:59 06:59 Intake Total 0 1050 Output Total 1725 650 Balance -1725 400 Weight 31.7 kg 34.4 kg General appearance: PRESENT: mild distress Eye exam: PRESENT: PERRLA Mouth exam: PRESENT: neck supple Respiratory exam: PRESENT: decreased breath sounds Cardiovascular exam: PRESENT: +S1, +S2 GI/Abdominal exam: PRESENT: normal bowel sounds, soft Neurological exam: PRESENT: alert, altered Results Laboratory Results: 08/30/19 05:24 08/31/19 04:39 08/31/19 04:39 Sodium 133.5 L Potassium 3.8 Chloride 103 Carbon Dioxide 21 L Anion Gap 10 BUN 6 L Creatinine 0.28 L Est GFR ( Amer) > 60 Glucose 126 H Calcium 8.7 Impressions: Abdomen/Pelvis CT 08/22/19 00:00 IMPRESSION: Right lower lobe pneumonia No CT evidence of bowel obstruction. Gastrojejunostomy tube in good positioning. Chest X-Ray 08/28/19 00:00 IMPRESSION: Residual right lower lobe infiltrate. Assessment & Plan - Diagnosis (1) Aspiration pneumonia Qualifiers: Laterality: right Lung location: unspecified part of lung Is this a current diagnosis for this admission?: Yes (2) Cerebral palsy Qualifiers: Cerebral palsy type: unspecified type Qualified Code(s): G80.9 - Cerebral palsy, unspecified Is this a current diagnosis for this admission?: Yes (3) Mental and behavioral problem Is this a current diagnosis for this admission?: Yes (4) Respiratory distress Is this a current diagnosis for this admission?: Yes (5) Seizure disorder Is this a current diagnosis for this admission?: Yes (6) Tachycardia Is this a current diagnosis for this admission?: Yes (7) Uses feeding tube Is this a current diagnosis for this admission?: Yes - Time Time Spent with patient: 15-24 minutes Level of Care: IMCU Medications reviewed and adjusted accordingly: Yes Anticipated discharge: Other Within: Other - Plan Summary Plan Summary: Try to wean off from the BiPAP but in the comfort measure PRN morphine discussed with the nursing staff and also discussed with the caregiver
[2019-08-31] MEDS: CEFEPIME 1 GM/D5W RTU 1 GM/50 ML RTUPB IV SCH ×2 (09:40→22:13)
[2019-08-31] MEDS: ZONISAMIDE 100 MG CAPSULE JT SCH ×2 (09:40→22:18)
[2019-08-31] MEDS: METOPROLOL SUCCINATE 25 MG TAB.SR.24H PO SCH ×2 (09:41→22:17)
[2019-08-31] MEDS: CHOLECALCIFEROL (D3) 1,000 UNIT (25 MCG) TABLET JT SCH (09:41)
[2019-08-31] MEDS: ENOXAPARIN SODIUM INJ 30 MG/0.3 ML DISP.SYRIN SUBCUT SCH (09:41)
[2019-08-31] MEDS: METOCLOPRAMIDE HCL ORAL SOLN 10 MG/10 ML UDCUP JT SCH ×4 (09:41→22:18)
[2019-08-31] MEDS: POLYETHYLENE GLYCOL 3350 POWDER 17 GM/1 PACKET PO SCH (09:41)
--- NOTE | 2019-08-31 14:43 | PDOC PROGRESS REPORT ---
Subjective Progress Note for:: 08/31/19 Subjective:: altered but awake Reason For Visit: ASPIRATIONS PNEUMONIA Physical Exam Vital Signs: Temp Pulse Resp BP Pulse Ox 98.5 F 139 H 33 H 91/58 L 98 08/31/19 03:06 08/31/19 07:41 08/31/19 07:41 08/31/19 03:06 08/31/19 07:41 Intake & Output 08/30/19 08/31/19 09/01/19 06:59 06:59 06:59 Intake Total 0 1050 Output Total 1725 650 Balance -1725 400 Weight 31.7 kg 34.4 kg General appearance: PRESENT: mild distress, well-nourished. ABSENT: cooperative, disheveled, well-developed Head exam: ABSENT: atraumatic, normocephalic Eye exam: PRESENT: conjunctiva pale. ABSENT: nystagmus, scleral icterus Mouth exam: PRESENT: dry mucosa, tongue midline Teeth exam: PRESENT: poor dentation Neck exam: ABSENT: carotid bruit, full ROM, JVD, lymphadenopathy, meningismus, tenderness, thyromegaly, tracheal deviation, tracheostomy, other Respiratory exam: PRESENT: decreased breath sounds, prolonged expiratory phas, rales, rhonchi, symmetrical, tachypnea, wheezes. ABSENT: retraction, stridor, unlabored Cardiovascular exam: PRESENT: RRR, +S1, +S2, tachycardia Pulses: PRESENT: normal radial pulses GI/Abdominal exam: PRESENT: soft. ABSENT: guarding, mass, rebound, tenderness Extremities exam: ABSENT: calf tenderness, clubbing, full ROM, joint swelling, tenderness Musculoskeletal exam: ABSENT: ambulatory, deformity, dislocation, full ROM, normal inspection Neurological exam: PRESENT: altered Psychiatric exam: PRESENT: flat affect Focused psych exam: PRESENT: internal stimuli Skin exam: PRESENT: dry, warm Results Laboratory Results: 08/30/19 05:24 08/31/19 04:39 08/31/19 04:39 Sodium 133.5 L Potassium 3.8 Chloride 103 Carbon Dioxide 21 L Anion Gap 10 BUN 6 L Creatinine 0.28 L Est GFR ( Amer) > 60 Glucose 126 H Calcium 8.7 Impressions: Abdomen/Pelvis CT 08/22/19 00:00 IMPRESSION: Right lower lobe pneumonia No CT evidence of bowel obstruction. Gastrojejunostomy tube in good positioning. Chest X-Ray 08/28/19 00:00 IMPRESSION: Residual right lower lobe infiltrate. Assessment & Plan - Diagnosis (1) Aspiration pneumonia Qualifiers: Laterality: right Lung location: unspecified part of lung Is this a current diagnosis for this admission?: Yes Plan: Unchanged;No expectation of change (2) Cerebral palsy Qualifiers: Cerebral palsy type: unspecified type Qualified Code(s): G80.9 - Cerebral palsy, unspecified Is this a current diagnosis for this admission?: Yes Plan: Unchanged (3) Seizure disorder Is this a current diagnosis for this admission?: Yes Plan: No recent seizures reported - Time Time Spent with patient: 25-34 minutes - Plan Summary Plan Summary: Agree with primary care physician to initiate comfort care
[2019-08-31] MEDS: PHENOBARBITAL 97.2 MG TABLET JT SCH (22:17)
[2019-09-01] MEDS: LEVALBUTEROL HCL NEB 1.25 MG/3 ML AMPUL NEB SCH ×4 (01:40→20:05)
[2019-09-01] MEDS: MORPHINE SULFATE 10 MG/ML INJ IV PRN ×3 (07:02→23:56)
[2019-09-01] MEDS: TOBRAMYCIN SULFATE NEB 40 MG/ML 30 ML NEB SCH (07:57)
--- NOTE | 2019-09-01 08:06 | PDOC PROGRESS REPORT ---
Subjective Progress Note for:: 09/01/19 Subjective:: Patient is currently doing same with the nasal cannula no distress since when I saw the patient Is currently a more comfort care Reason For Visit: ASPIRATIONS PNEUMONIA Physical Exam Vital Signs: Temp Pulse Resp BP Pulse Ox 97.8 F 94 22 H 106/65 98 09/01/19 04:14 09/01/19 07:59 09/01/19 07:59 09/01/19 04:14 09/01/19 07:59 Intake & Output 08/31/19 09/01/19 09/02/19 06:59 06:59 06:59 Intake Total 1050 1083 Output Total 650 1200 Balance 400 -117 Weight 34.4 kg 36.1 kg General appearance: PRESENT: no acute distress Eye exam: PRESENT: PERRLA Mouth exam: PRESENT: neck supple Respiratory exam: PRESENT: decreased breath sounds Cardiovascular exam: PRESENT: +S1, +S2 GI/Abdominal exam: PRESENT: normal bowel sounds Neurological exam: PRESENT: alert Results Laboratory Results: 08/30/19 05:24 08/31/19 04:39 Impressions: Abdomen/Pelvis CT 08/22/19 00:00 IMPRESSION: Right lower lobe pneumonia No CT evidence of bowel obstruction. Gastrojejunostomy tube in good positioning. Chest X-Ray 08/28/19 00:00 IMPRESSION: Residual right lower lobe infiltrate. Assessment & Plan - Diagnosis (1) Aspiration pneumonia Qualifiers: Laterality: right Lung location: unspecified part of lung Is this a current diagnosis for this admission?: Yes (2) Cerebral palsy Qualifiers: Cerebral palsy type: unspecified type Qualified Code(s): G80.9 - Cerebral palsy, unspecified Is this a current diagnosis for this admission?: Yes (3) Mental and behavioral problem Is this a current diagnosis for this admission?: Yes (4) Respiratory distress Is this a current diagnosis for this admission?: Yes (5) Seizure disorder Is this a current diagnosis for this admission?: Yes (6) Tachycardia Is this a current diagnosis for this admission?: Yes (7) Uses feeding tube Is this a current diagnosis for this admission?: Yes - Time Time Spent with patient: 15-24 minutes Level of Care: IMCU Medications reviewed and adjusted accordingly: Yes Anticipated discharge: Other Within: Other - Plan Summary Plan Summary: Patient is currently on comfort care will just restart the tube feeding for comfort and discontinues the IV fluid
[2019-09-01] MEDS: ENOXAPARIN SODIUM INJ 30 MG/0.3 ML DISP.SYRIN SUBCUT SCH (10:39)
[2019-09-01] MEDS: CHOLECALCIFEROL (D3) 1,000 UNIT (25 MCG) TABLET JT SCH (10:41)
[2019-09-01] MEDS: METOPROLOL SUCCINATE 25 MG TAB.SR.24H PO SCH ×3 (10:42→23:57)
[2019-09-01] MEDS: POLYETHYLENE GLYCOL 3350 POWDER 17 GM/1 PACKET PO SCH (10:42)
[2019-09-01] MEDS: CEFEPIME 1 GM/D5W RTU 1 GM/50 ML RTUPB IV SCH ×2 (10:43→22:22)
[2019-09-01] MEDS: METOCLOPRAMIDE HCL ORAL SOLN 10 MG/10 ML UDCUP JT SCH ×4 (10:45→22:21)
[2019-09-01] MEDS: ZONISAMIDE 100 MG CAPSULE JT SCH ×2 (10:47→22:21)
[2019-09-01] MEDS: POTASSI CL 40 MEQ/D5-1/2NS 1L 40 MEQ/1,000 ML RTUINJ IV PRN (14:59)
[2019-09-01] MEDS: PHENOBARBITAL 97.2 MG TABLET JT SCH (22:22)
[2019-09-02] MEDS: LEVALBUTEROL HCL NEB 1.25 MG/3 ML AMPUL NEB SCH ×4 (01:47→20:04)
[2019-09-02] MEDS: MORPHINE SULFATE 10 MG/ML INJ IV PRN ×3 (03:49→20:24)
[2019-09-02] MEDS: CEFEPIME 1 GM/D5W RTU 1 GM/50 ML RTUPB IV SCH ×2 (11:12→21:38)
[2019-09-02] MEDS: METOPROLOL SUCCINATE 25 MG TAB.SR.24H PO SCH ×2 (11:15→21:38)
[2019-09-02] MEDS: POLYETHYLENE GLYCOL 3350 POWDER 17 GM/1 PACKET PO SCH (11:15)
[2019-09-02] MEDS: METOCLOPRAMIDE HCL ORAL SOLN 10 MG/10 ML UDCUP JT SCH ×4 (11:16→21:39)
[2019-09-02] MEDS: ENOXAPARIN SODIUM INJ 30 MG/0.3 ML DISP.SYRIN SUBCUT SCH (11:16)
[2019-09-02] MEDS: CHOLECALCIFEROL (D3) 1,000 UNIT (25 MCG) TABLET JT SCH (11:17)
[2019-09-02] MEDS: ZONISAMIDE 100 MG CAPSULE JT SCH ×2 (11:21→21:38)
[2019-09-02] MEDS: POTASSI CL 40 MEQ/D5-1/2NS 1L 40 MEQ/1,000 ML RTUINJ IV PRN (11:38)
--- NOTE | 2019-09-02 15:30 | PDOC PROGRESS REPORT ---
Subjective Progress Note for:: 09/02/19 Subjective:: Patient remain on DNR status. No seizure activity. Remain on antibiotic therapy and IV fluid support. Enteral tube feeding on hold at this time. Reason For Visit: ASPIRATIONS PNEUMONIA Physical Exam Vital Signs: Temp Pulse Resp BP Pulse Ox 97.8 F 127 H 20 106/79 96 09/02/19 07:32 09/02/19 14:11 09/02/19 14:11 09/02/19 07:32 09/02/19 14:11 Intake & Output 09/01/19 09/02/19 09/03/19 06:59 06:59 06:59 Intake Total 1083 1021 1050 Output Total 1200 825 Balance -002 689 5679 Weight 36.1 kg 34.6 kg Head exam: PRESENT: atraumatic, normocephalic Respiratory exam: PRESENT: decreased breath sounds - at lung bases Cardiovascular exam: PRESENT: RRR. ABSENT: diastolic murmur, rubs, systolic murmur GI/Abdominal exam: PRESENT: normal bowel sounds Neurological exam: PRESENT: altered - due to pain medication administration Results Laboratory Results: 08/30/19 05:24 08/31/19 04:39 Impressions: Abdomen/Pelvis CT 08/22/19 00:00 IMPRESSION: Right lower lobe pneumonia No CT evidence of bowel obstruction. Gastrojejunostomy tube in good positioning . Chest X-Ray 08/28/19 00:00 IMPRESSION: Residual right lower lobe infiltrate. Assessment & Plan - Diagnosis (1) Aspiration pneumonia Qualifiers: Laterality: right Lung location: unspecified part of lung Is this a current diagnosis for this admission?: Yes Plan: Continue IV antibiotic coverage. (2) Respiratory distress Is this a current diagnosis for this admission?: Yes Plan: Continue supportive care. Overall prognosis remain very poor. (3) Seizure disorder Is this a current diagnosis for this admission?: Yes Plan: Continue current medication management. (4) Cerebral palsy Qualifiers: Cerebral palsy type: unspecified type Qualified Code(s): G80.9 - Cerebral palsy, unspecified Is this a current diagnosis for this admission?: Yes Plan: Continue current medication management. (5) Mental and behavioral problem Is this a current diagnosis for this admission?: Yes Plan: Continue current medication management. (6) Uses feeding tube Is this a current diagnosis for this admission?: Yes Plan: Continue to hold enteral tube feeding in view of her aspiration and continue high risk for recurrence. - Time Time Spent with patient: 25-34 minutes Level of Care: IMCU Medications reviewed and adjusted accordingly: Yes Anticipated discharge: Home with Homehealth, Hospice - Inpatient Certification Based on my medical assessment, after consideration of the patient's comorbidities, presenting symptoms, or acuity I expect that the services needed warrant INPATIENT care.: Yes I certify that my determination is in accordance with my understanding of Medicare's requirements for reasonable and necessary INPATIENT services [42 CFR 412.3e].: Yes Medical Necessity: Significant Comorbidiites Make Outpatient Treatment Too Risky, Need Close Monitoring Due to Risk of Patient Decompensation, Need For IV Fluids, Need for Nebulizer Therapy and Monitoring of Response, Risk of Complication if Not Cared For in Hospital, Risk of Diagnosis Which Will Require Inpatient Eval/Care/Monitoring Post Hospital Care: D/C Heel Seat Fitter Documentation - Plan Summary Plan Summary: Continue current medication management. Overall prognosis remain poor.
[2019-09-02] MEDS: PHENOBARBITAL 97.2 MG TABLET JT SCH (21:39)
[2019-09-03] MEDS: MORPHINE SULFATE 10 MG/ML INJ IV PRN ×3 (01:20→21:18)
[2019-09-03] MEDS: LEVALBUTEROL HCL NEB 1.25 MG/3 ML AMPUL NEB SCH ×4 (02:15→20:24)
[2019-09-03] MEDS: POTASSI CL 40 MEQ/D5-1/2NS 1L 40 MEQ/1,000 ML RTUINJ IV PRN (10:59)
[2019-09-03] MEDS: METOPROLOL SUCCINATE 25 MG TAB.SR.24H PO SCH ×2 (11:29→21:20)
[2019-09-03] MEDS: CHOLECALCIFEROL (D3) 1,000 UNIT (25 MCG) TABLET JT SCH (11:29)
[2019-09-03] MEDS: METOCLOPRAMIDE HCL ORAL SOLN 10 MG/10 ML UDCUP JT SCH ×4 (11:30→21:18)
[2019-09-03] MEDS: POLYETHYLENE GLYCOL 3350 POWDER 17 GM/1 PACKET PO SCH (11:30)
[2019-09-03] MEDS: CEFEPIME 1 GM/D5W RTU 1 GM/50 ML RTUPB IV SCH ×2 (11:30→21:19)
[2019-09-03] MEDS: ENOXAPARIN SODIUM INJ 30 MG/0.3 ML DISP.SYRIN SUBCUT SCH (11:31)
[2019-09-03] MEDS: ZONISAMIDE 100 MG CAPSULE JT SCH ×2 (11:31→21:19)
--- NOTE | 2019-09-03 14:57 | PDOC PROGRESS REPORT ---
Subjective Progress Note for:: 09/03/19 Subjective:: No significant clinical change in her over all condition. Patient remain on DNR status. No seizure activity. Reason For Visit: ASPIRATIONS PNEUMONIA Physical Exam Vital Signs: Temp Pulse Resp BP Pulse Ox 97.9 F 127 H 24 H 103/74 94 09/03/19 07:57 09/03/19 13:50 09/03/19 13:50 09/03/19 07:57 09/03/19 13:50 Intake & Output 09/02/19 09/03/19 09/04/19 06:59 06:59 06:59 Intake Total 1021 1100 1000 Output Total 825 980 Balance 054 780 0298 Weight 34.6 kg 35.4 kg Physical Exam: Head exam: PRESENT: atraumatic, normocephalic Respiratory exam: PRESENT: decreased breath sounds - at lung bases Cardiovascular exam: PRESENT: RRR. ABSENT: diastolic murmur, rubs, systolic murmur GI/Abdominal exam: PRESENT: normal bowel sounds Neurological exam: PRESENT: altered - due to pain medication administration Results Laboratory Results: 08/30/19 05:24 08/31/19 04:39 Impressions: Abdomen/Pelvis CT 08/22/19 00:00 IMPRESSION: Right lower lobe pneumonia No CT evidence of bowel obstruction. Gastrojejunostomy tube in good positioning. Chest X-Ray 08/28/19 00:00 IMPRESSION: Residual right lower lobe infiltrate. Assessment & Plan - Diagnosis (1) Aspiration pneumonia Qualifiers: Laterality: right Lung location: unspecified part of lung Is this a current diagnosis for this admission?: Yes (2) Respiratory distress Is this a current diagnosis for this admission?: Yes (3) Seizure disorder Is this a current diagnosis for this admission?: Yes (4) Cerebral palsy Qualifiers: Cerebral palsy type: unspecified type Qualified Code(s): G80.9 - Cerebral palsy, unspecified Is this a current diagnosis for this admission?: Yes (5) Mental and behavioral problem Is this a current diagnosis for this admission?: Yes (6) Uses feeding tube Is this a current diagnosis for this admission?: Yes - Time Time Spent with patient: 15-24 minutes Level of Care: IMCU Medications reviewed and adjusted accordingly: Yes Anticipated discharge: Hospice Within: Other - Inpatient Certification Based on my medical assessment, after consideration of the patient's rusty rbidities, presenting symptoms, or acuity I expect that the services needed warrant INPATIENT care.: Yes I certify that my determination is in accordance with my understanding of Medicare's requirements for reasonable and necessary INPATIENT services [42 CFR 412.3e].: Yes Medical Necessity: Significant Comorbidiites Make Outpatient Treatment Too Risky, Need Close Monitoring Due to Risk of Patient Decompensation, Need For IV Fluids, Need for IV Antibiotics, Risk of Complication if Not Cared For in Hospital, Risk of Diagnosis Which Will Require Inpatient Eval/Care/Monitoring Post Hospital Care: D/C Supervisor Slitting And Shipping Documentation - Plan Summary Plan Summary: Continue current medication management.
[2019-09-03] MEDS: PHENOBARBITAL 97.2 MG TABLET JT SCH (21:18)
[2019-09-04] MEDS: MORPHINE SULFATE 10 MG/ML INJ IV PRN (01:01)
[2019-09-04] MEDS: LEVALBUTEROL HCL NEB 1.25 MG/3 ML AMPUL NEB SCH ×4 (02:17→20:26)
[2019-09-04] MEDS: POTASSI CL 40 MEQ/D5-1/2NS 1L 40 MEQ/1,000 ML RTUINJ IV PRN (07:49)
--- NOTE | 2019-09-04 10:58 | PDOC PROGRESS REPORT ---
Subjective Progress Note for:: 09/04/19 Subjective:: Patient is currently doing better actually on a nasal cannula not in a distressed and according to the nursing staff's patient is smiling this morning Reason For Visit: ASPIRATIONS PNEUMONIA Physical Exam Vital Signs: Temp Pulse Resp BP Pulse Ox 97.9 F 106 H 22 H 97/75 L 97 09/04/19 07:26 09/04/19 07:40 09/04/19 07:40 09/04/19 07:26 09/04/19 07:40 Intake & Output 09/03/19 09/04/19 09/05/19 06:59 06:59 06:59 Intake Total 1100 2050 50 Output Total 980 950 Balance 120 1100 50 Weight 35.4 kg 36 kg General appearance: PRESENT: no acute distress Eye exam: PRESENT: PERRLA Mouth exam: PRESENT: neck supple Respiratory exam: PRESENT: decreased breath sounds Cardiovascular exam: PRESENT: +S1, +S2 GI/Abdominal exam: PRESENT: normal bowel sounds, soft Neurological exam: PRESENT: alert, awake Skin exam: PRESENT: dry Results Laboratory Results: 08/30/19 05:24 08/31/19 04:39 Impressions: Abdomen/Pelvis CT 08/22/19 00:00 IMPRESSION: Right lower lobe pneumonia No CT evidence of bowel obstruction. Gastrojejunostomy tube in good positioning. Chest X-Ray 08/28/19 00:00 IMPRESSION: Residual right lower lobe infiltrate. Assessment & Plan - Diagnosis (1) Aspiration pneumonia Qualifiers: Laterality: right Lung location: unspecified part of lung Is this a current diagnosis for this admission?: Yes (2) Cerebral palsy Qualifiers: Cerebral palsy type: unspecified type Qualified Code(s): G80.9 - Cerebral palsy, unspecified Is this a current diagnosis for this admission?: Yes (3) Mental and behavioral problem Is this a current diagnosis for this admission?: Yes (4) Respiratory distress Is this a current diagnosis for this admission?: Yes (5) Seizure disorder Is this a current diagnosis for this admission?: Yes (6) Tachycardia Is this a current diagnosis for this admission?: Yes (7) Uses feeding tube Is this a current diagnosis for this admission?: Yes - Time Time Spent with patient: 15-24 minutes Level of Care: IMCU Medications reviewed and adjusted accordingly: Yes Anticipated discharge: Other Within: Other - Plan Summary Plan Summary: Start the tube feeding discussed with the nursing staff today repeat the chest x-ray try to wean off from the oxygen's
[2019-09-04] MEDS: CEFEPIME 1 GM/D5W RTU 1 GM/50 ML RTUPB IV SCH ×2 (11:39→21:27)
[2019-09-04] MEDS: METOPROLOL SUCCINATE 25 MG TAB.SR.24H PO SCH ×2 (11:40→21:26)
[2019-09-04] MEDS: ENOXAPARIN SODIUM INJ 30 MG/0.3 ML DISP.SYRIN SUBCUT SCH (11:40)
[2019-09-04] MEDS: CHOLECALCIFEROL (D3) 1,000 UNIT (25 MCG) TABLET JT SCH (11:40)
[2019-09-04] MEDS: POLYETHYLENE GLYCOL 3350 POWDER 17 GM/1 PACKET PO SCH (11:41)
[2019-09-04] MEDS: ZONISAMIDE 100 MG CAPSULE JT SCH ×2 (11:41→21:27)
[2019-09-04] MEDS: METOCLOPRAMIDE HCL ORAL SOLN 10 MG/10 ML UDCUP JT SCH ×4 (11:41→21:26)
[2019-09-04] MEDS ORDERED: ACETAMINOPHEN SOLN 325 MG/10.15 ML UDCUP PEG PRN (14:48)
[2019-09-04] MEDS ORDERED: ONDANSETRON HCL INJ/PF 4 MG/2 ML SDV IV PRN (15:00)
--- NOTE | 2019-09-04 15:08 | RADIOLOGY REPORT (SQ) ---
EXAM DESCRIPTION: CHEST SINGLE VIEW COMPLETED DATE/TIME: 09/04/2019 1:45 pm REASON FOR STUDY: Aspirations pneumonia COMPARISON: 08/28/2019 EXAM PARAMETERS: NUMBER OF VIEWS: One view. TECHNIQUE: Single frontal radiographic view of the chest acquired. RADIATION DOSE: NA LIMITATIONS: None. FINDINGS: LUNGS AND PLEURA: There is improved aeration in the right lower lobe. No focal consolidat ion or pleural effusion. No pneumothorax. MEDIASTINUM AND HILAR STRUCTURES: No masses. Contour normal. HEART AND VASCULAR STRUCTURES: Heart normal in size. Normal vasculature. BONES: Severe scoliotic curvature of the thoracolumbar spine is stable. HARDWARE: None in the chest. OTHER: No other significant finding. IMPRESSION: Improved aeration at the right lung base consistent with resolved pneumonia. No acute c ardiopulmonary disease. TECHNICAL DOCUMENTATION: JOB ID: [id number] [employer]- All Rights Reserved Reading location - IP/workstation name: [email or web address]
[2019-09-04 19:00] LABS: ANION GAP 6 (5-19); BLOOD UREA NITROGEN 3 mg/dL (7-20); CALCIUM 8.7 mg/dL (8.4-10.2); CARBON DIOXIDE 28 mmol/L (22-30); CHLORIDE 99 mmol/L (98-107); GLUCOSE 136 mg/dL (75-110); POTASSIUM 3.7 mmol/L (3.6-5.0)
[2019-09-04] MEDS: PHENOBARBITAL 97.2 MG TABLET JT SCH (21:26)
[2019-09-05] MEDS: LEVALBUTEROL HCL NEB 1.25 MG/3 ML AMPUL NEB SCH ×4 (02:45→20:08)
[2019-09-05 05:04] LABS: ABSOLUTE MONOCYTES (AUTO) 0.7 10^3/uL (0.1-1.4); BASOPHILS % (AUTO) 0.6 % (0-2); EOSINOPHILS % (AUTO) 0.6 % (0-6); HEMATOCRIT 34.7 % (36.0-47.0); HEMOGLOBIN 11.8 g/dL (12.0-15.5); LYMPHOCYTES % (AUTO) 17.7 % (13-45); MEAN CORPUSCULAR HEMOGLOBIN 33.9 pg (27.0-33.4); MEAN CORPUSCULAR VOLUME 100 fl (80-97); MONOCYTES % (AUTO) 11.3 % (3-13); PLATELET COUNT 544 10^3/uL (150-450); RED BLOOD COUNT 3.48 10^6/uL (3.72-5.28); RED CELL DISTRIBUTION WIDTH 13.3 % (11.5-14.0); SEGMENTED NEUTROPHILS % (AUTO) 69.8 % (42-78); TOTAL CELLS COUNTED % (AUTO) 100 %; WHITE BLOOD COUNT 5.8 10^3/uL (4.0-10.5)
[2019-09-05 05:35] LABS: ANION GAP 8 (5-19); BLOOD UREA NITROGEN 3 mg/dL (7-20); CALCIUM 8.7 mg/dL (8.4-10.2); CARBON DIOXIDE 27 mmol/L (22-30); CHLORIDE 99 mmol/L (98-107); GLUCOSE 131 mg/dL (75-110); POTASSIUM 3.8 mmol/L (3.6-5.0)
[2019-09-05] MEDS: POTASSI CL 40 MEQ/D5-1/2NS 1L 40 MEQ/1,000 ML RTUINJ IV PRN (08:44)
[2019-09-05] MEDS: METOCLOPRAMIDE HCL ORAL SOLN 10 MG/10 ML UDCUP JT SCH ×4 (10:00→22:04)
[2019-09-05] MEDS: CHOLECALCIFEROL (D3) 1,000 UNIT (25 MCG) TABLET JT SCH (10:00)
[2019-09-05] MEDS: ENOXAPARIN SODIUM INJ 30 MG/0.3 ML DISP.SYRIN SUBCUT SCH (10:13)
[2019-09-05] MEDS: CEFEPIME 1 GM/D5W RTU 1 GM/50 ML RTUPB IV SCH ×2 (10:15→22:04)
[2019-09-05] MEDS: POLYETHYLENE GLYCOL 3350 POWDER 17 GM/1 PACKET PO SCH (10:17)
[2019-09-05] MEDS: METOPROLOL SUCCINATE 25 MG TAB.SR.24H PO SCH ×2 (10:18→22:05)
[2019-09-05] MEDS: ZONISAMIDE 100 MG CAPSULE JT SCH ×2 (10:20→22:02)
--- NOTE | 2019-09-05 12:55 | PDOC PROGRESS REPORT ---
Subjective Progress Note for:: 09/05/19 Subjective:: Patient is currently doing better Chest x-ray is all clear Patients will start the tube feeding again yesterday Reason For Visit: ASPIRATIONS PNEUMONIA Physical Exam Vital Signs: Temp Pulse Resp BP Pulse Ox 97.4 F 85 28 H 102/86 H 100 09/05/19 07:30 09/05/19 07:50 09/05/19 07:50 09/05/19 07:30 09/05/19 07:50 Intake & Output 09/04/19 09/05/19 09/06/19 06:59 06:59 06:59 Intake Total 2050 1350 Output Total 950 1350 Balance 1100 0 Weight 36 kg 34.3 kg General appearance: PRESENT: no acute distress Eye exam: PRESENT: PERRLA Mouth exam: PRESENT: neck supple Respiratory exam: PRESENT: decreased breath sounds Cardiovascular exam: PRESENT: +S1, +S2 Neurological exam: PRESENT: alert, awake Results Laboratory Results: 09/05/19 04:26 09/05/19 04:26 09/04/19 09/05/19 09/05/19 18:32 04:26 04:26 WBC 5.8 RBC 3.48 L Hgb 11.8 L Hct 34.7 L MCV 100 H MCH 33.9 H MCHC 34.0 RDW 13.3 Plt Count 544 H Seg Neutrophils % 69.8 Sodium 133.1 L 134.1 L Potassium 3.7 3.8 Chloride 99 99 Carbon Dioxide 28 27 Anion Gap 6 8 BUN 3 L 3 L Creatinine 0.24 L 0.27 L Est GFR ( Amer) > 60 > 60 Glucose 136 H 131 H Calcium 8.7 8.7 Magnesium 2.1 Impressions: Abdomen/Pelvis CT 08/22/19 00:00 IMPRESSION: Right lower lobe pneumonia No CT evidence of bowel obstruction. Gastrojejunostomy tube in good positioning. Chest X-Ray 09/04/19 00:00 IMPRESSION: Improved aeration at the right lung base consistent with resolved pneumonia. No acute cardiopulmonary disease. Assessment & Plan - Diagnosis (1) Aspiration pneumonia Qualifiers: Laterality: right Lung location: unspecified part of lung Is this a current diagnosis for this admission?: Yes (2) Cerebral palsy Qualifiers: Cerebral palsy type: unspecified type Qualified Code(s): G80.9 - Cerebral palsy, unspecified Is this a current diagnosis for this admission?: Yes (3) Mental and behavioral problem Is this a current diagnosis for this admission?: Yes (4) Respiratory distress Is this a current diagnosis for this admission?: Yes (5) Seizure disorder Is this a current diagnosis for this admission?: Yes (6) Tachycardia Is this a current diagnosis for this admission?: Yes (7) Uses feeding tube Is this a current diagnosis for this admission?: Yes - Time Time Spent with patient: 15-24 minutes Level of Care: IMCU Medications reviewed and adjusted accordingly: Yes Anticipated discharge: Other Within: within 24 hours, Other - Plan Summary Plan Summary: Continues to current medications try to wean off from the oxygen's I think patient is getting better hopefully discharge back to the [facility]
[2019-09-05] MEDS: PHENOBARBITAL 97.2 MG TABLET JT SCH (22:05)
[2019-09-06] MEDS: LEVALBUTEROL HCL NEB 1.25 MG/3 ML AMPUL NEB SCH ×4 (01:52→19:58)
[2019-09-06] MEDS: POTASSI CL 40 MEQ/D5-1/2NS 1L 40 MEQ/1,000 ML RTUINJ IV PRN (07:02)
--- NOTE | 2019-09-06 09:15 | PDOC PROGRESS REPORT ---
Subjective Progress Note for:: 09/06/19 Subjective:: Patient is currently doing same very difficult to wean off from the 5 L nasal cannula oxygen yesterday we will try it and also try to start tube feeding patient unable to tolerate and a lot of diarrhea from there Patient still pretty much same is difficult to wean off from the oxygen with difficulty from the tube feedings I do not think so too much options left for this patient Reason For Visit: ASPIRATIONS PNEUMONIA Physical Exam Vital Signs: Temp Pulse Resp BP Pulse Ox 97.7 F 98 18 106/70 98 09/06/19 07:09 09/06/19 07:44 09/06/19 07:44 09/06/19 07:09 09/06/19 07:44 Intake & Output 09/05/19 09/06/19 09/07/19 06:59 06:59 06:59 Intake Total 1350 1635 Output Total 1350 1350 Balance 0 285 Weight 34.3 kg 33.8 kg General appearance: PRESENT: no acute distress Eye exam: PRESENT: PERRLA Mouth exam: PRESENT: neck supple Respiratory exam: PRESENT: decreased breath sounds Neurological exam: PRESENT: alert, awake Results Laboratory Results: 09/05/19 04:26 09/05/19 04:26 Impressions: Abdomen/Pelvis CT 08/22/19 00:00 IMPRESSION: Right lower lobe pneumonia No CT evidence of bowel obstruction. Gastrojejunostomy tube in good positionin g. Chest X-Ray 09/04/19 00:00 IMPRESSION: Improved aeration at the right lung base consistent with resolved pneumonia. No acute cardiopulmonary disease. Assessment & Plan - Diagnosis (1) Aspiration pneumonia Qualifiers: Laterality: right Lung location: unspecified part of lung Is this a current diagnosis for this admission?: Yes (2) Cerebral palsy Qualifiers: Cerebral palsy type: unspecified type Qualified Code(s): G80.9 - Cerebral palsy, unspecified Is this a current diagnosis for this admission?: Yes (3) Mental and behavioral problem Is this a current diagnosis for this admission?: Yes (4) Respiratory distress Is this a current diagnosis for this admission?: Yes (5) Seizure disorder Is this a current diagnosis for this admission?: Yes (6) Tachycardia Is this a current diagnosis for this admission?: Yes (7) Uses feeding tube Is this a current diagnosis for this admission?: Yes - Time Time Spent with patient: 15-24 minutes Level of Care: IMCU Medications reviewed and adjusted accordingly: Yes Anticipated discharge: Other Within: Other - Plan Summary Plan Summary: Again discussed with the caregiver about to going towards the comfort care because patient still unable to wean her from the oxygen unable to handle the tube feedings I think overall prognosis is still very poor we will try the see how the patient's go with all the treatments patient's chest x-ray is clear I do not think she will need any more antibiotics
[2019-09-06] MEDS: ENOXAPARIN SODIUM INJ 30 MG/0.3 ML DISP.SYRIN SUBCUT SCH (09:21)
[2019-09-06] MEDS: ZONISAMIDE 100 MG CAPSULE JT SCH ×2 (09:22→21:46)
[2019-09-06] MEDS: METOPROLOL SUCCINATE 25 MG TAB.SR.24H PO SCH ×2 (09:22→21:47)
[2019-09-06] MEDS: CHOLECALCIFEROL (D3) 1,000 UNIT (25 MCG) TABLET JT SCH (09:22)
[2019-09-06] MEDS: METOCLOPRAMIDE HCL ORAL SOLN 10 MG/10 ML UDCUP JT SCH ×4 (12:07→21:46)
[2019-09-06] MEDS: POLYETHYLENE GLYCOL 3350 POWDER 17 GM/1 PACKET PO SCH (12:07)
[2019-09-06] MEDS: PHENOBARBITAL 97.2 MG TABLET JT SCH (21:46)
[2019-09-07] MEDS: LEVALBUTEROL HCL NEB 1.25 MG/3 ML AMPUL NEB SCH (01:59)
[2019-09-07] MEDS: POTASSI CL 40 MEQ/D5-1/2NS 1L 40 MEQ/1,000 ML RTUINJ IV PRN (06:34)
--- NOTE | 2019-09-07 08:18 | PDOC PROGRESS REPORT ---
Subjective Progress Note for:: 09/07/19 Subjective:: Patient is currently doing same Patient required Ativan last night because of more agitations Reason For Visit: ASPIRATIONS PNEUMONIA Physical Exam Vital Signs: Temp Pulse Resp BP Pulse Ox 97.6 F 108 H 18 108/88 H 98 09/07/19 07:25 09/07/19 07:25 09/07/19 07:25 09/07/19 07:25 09/07/19 07:25 Intake & Output 09/06/19 09/07/19 09/08/19 06:59 06:59 06:59 Intake Total 1635 1000 Output Total 1350 700 Balance 285 300 Weight 33.8 kg 34.7 kg General appearance: PRESENT: no acute distress Eye exam: PRESENT: PERRLA Mouth exam: PRESENT: neck supple Respiratory exam: PRESENT: decreased breath sounds Cardiovascular exam: PRESENT: +S1, +S2 Neurological exam: PRESENT: altered Results Laboratory Results: 09/05/19 04:26 09/05/19 04:26 Impressions: Abdomen/Pelvis CT 08/22/19 00:00 IMPRESSION: Right lower lobe pneumonia No CT evidence of bowel obstruction. Gastrojejunostomy tube in good positioning. Chest X-Ray 09/04/19 00:00 IMPRESSION: Improved aeration at the right lung base consistent with resolved pneumonia. No acute cardiopulmonary disease. Assessment & Plan - Diagnosis (1) Aspiration pneumonia Qualifiers: Laterality: right Lung location: unspecified part of lung Is this a current diagnosis for this admission?: Yes (2) Cerebral palsy Qualifiers: Cerebral palsy type: unspecified type Qualified Code(s): G80.9 - Cerebral palsy, unspecified Is this a current diagnosis for this admission?: Yes (3) Mental and behavioral problem Is this a current diagnosis for this admission?: Yes (4) Respiratory distress Is this a current diagnosis for this admission?: Yes (5) Seizure disorder Is this a current diagnosis for this admission?: Yes (6) Tachycardia Is this a current diagnosis for this admission?: Yes (7) Uses feeding tube Is this a current diagnosis for this admission?: Yes - Time Time Spent with patient: 15-24 minutes Level of Care: IMCU Medications reviewed and adjusted accordingly: Yes Anticipated discharge: Other Within: Other - Plan Summary Plan Summary: Patient still unable to tolerate the tube feeding Still pretty much same prognosis is still poor discussed with the caregiver regarding the patient's current conditions
[2019-09-07] MEDS: POLYETHYLENE GLYCOL 3350 POWDER 17 GM/1 PACKET PO SCH (10:26)
[2019-09-07] MEDS: METOCLOPRAMIDE HCL ORAL SOLN 10 MG/10 ML UDCUP JT SCH ×4 (10:57→22:49)
[2019-09-07] MEDS: METOPROLOL SUCCINATE 25 MG TAB.SR.24H PO SCH ×2 (10:57→22:48)
[2019-09-07] MEDS: ENOXAPARIN SODIUM INJ 30 MG/0.3 ML DISP.SYRIN SUBCUT SCH (10:58)
[2019-09-07] MEDS: CHOLECALCIFEROL (D3) 1,000 UNIT (25 MCG) TABLET JT SCH (10:58)
[2019-09-07] MEDS: ZONISAMIDE 100 MG CAPSULE JT SCH ×2 (10:58→22:49)
[2019-09-07] MEDS: NYSTATIN TOPICAL POWDER 15 GM TP SCH (17:15)
[2019-09-07] MEDS: PHENOBARBITAL 97.2 MG TABLET JT SCH (22:49)
[2019-09-08] MEDS: NYSTATIN TOPICAL POWDER 15 GM TP SCH ×4 (00:15→17:47)
[2019-09-08] MEDS: POTASSI CL 40 MEQ/D5-1/2NS 1L 40 MEQ/1,000 ML RTUINJ IV PRN (04:03)
--- NOTE | 2019-09-08 08:57 | PDOC DISCHARGE SUMMARY ---
Impression - Admit/DC Date/PCP Admission Date/Primary Care Provider: 08/22/19 17:16 OLIVERIO BABIN MD Discharge Date: 09/08/19 - Discharge Diagnosis (1) Aspiration pneumonia Is this a current diagnosis for this admission?: Yes (2) Cerebral palsy Is this a current diagnosis for this admission?: Yes (3) Mental and behavioral problem Is this a current diagnosis for this admission?: Yes (4) Respiratory distress Is this a current diagnosis for this admission?: Yes (5) Seizure disorder Is this a current diagnosis for this admission?: Yes (6) Tachycardia Is this a current diagnosis for this admission?: Yes (7) Uses feeding tube Is this a current diagnosis for this admission?: Yes - Additional Information Resuscitation Status: Do Not Resuscitate Discharge Diet: Tube Feeding (Comments) Referrals: OLIVERIO BABIN MD [Primary Care Provider] - Follow up as needed Home Medications: Cholecalciferol (Vitamin D3) [Vitamin D3 1000 Unit Tablet] 1,000 unit PO DAILY 08/23/19 Diazepam [Diastat 2.5 mg/0.5 ml Rectal Gel] 2.5 mg RC Q6HP PRN 08/23/19 Fluconazole [Diflucan] 150 mg PO Q7D PRN 08/23/19 Fluoride (Sodium) [Prevident 5000] 1 ml DT Q8 08/23/19 Hyoscyamine Sulfate [Hyosyne] 10 ml PO Q6 08/23/19 Ibuprofen [Children's Ibuprofen] 400 mg PO Q6HP PRN 08/23/19 Lansoprazole [Prevacid 30 mg Odt Tablet] 30 mg PO DAILY 08/23/19 Levalbuterol HCl [Xopenex Neb 0.63 mg/3 ml Ampul] 0.63 mg NEB RTQ6HP PRN 08/23/19 Metoclopramide HCl [Reglan Oral Soln 10 mg/10 ml Udcup] 10 mg PO QID 08/23/19 Metoprolol Succinate [Toprol Xl 25 mg Tab.sr] 12.5 mg PO Q12 08/23/19 Phenobarbital [Phenobarbital 97.2 mg Tablet] 97.2 mg PO QHS 08/23/19 Polyethylene Glycol 3350 [Miralax Powder 17 gm/Packet] 1 packet PO DAILY 08/23/19 Promethazine HCl 12.5 mg RC Q6HP PRN 08/23/19 Zonisamide [Zonegran 100 mg Capsule] 100 mg PO BID 08/23/19 History of Present Illiness History of Present Illness: KISHAN GUADARRAMA is a 39 year old female This is a 39-year-old female with a profound mental retardation cerebral palsy currently in a tube feeding seizures disorder currently lives in a prison facility brought to the emergency department because patients have vomiting this morning and possible aspiration and O2 sat is dropping down to up to 88%'s Patient is brought to the EMS patient O2 sat is 77% on room air put at 2 L nasal cannula goes to up to 90%'s When I saw the patient some mild distress but other than that currently comfortable with the 2 older nasal cannula discussed with the caregiver at nursing staff for the bedside patient is currently a DNR Patient also have a 5-minute seizures activity before the patient's comes Having no fever no chills No contact with any flu Patient have a mother living in [facility] and will contact the mother inform the mother Discussed with the nursing staff at [facility] Also have a history of the sinus tachycardia currently on a beta-desiree well controlled Hospital Course Hospital Course: This is a 39-year-old female's with a significant history of the mental retardation's seizures disorder cerebral palsy currently live in a prison on a G-tube feeding came to the emergency department with the aspirations pneumonia presents treated with the IV antibiotic patient with a respiratory failure and distress and required a BiPAP Patient was DNR/DNI as per discussed with the patient's mother and a caregiver p patricio's current upper response very poor patient struggling for the breathing patient seen by the pulmonary Dr. Bey Patient's aspiration pneumonia is clear with the antibiotics but patient still struggling for the respiratory distress and difficult to wean off from the oxygen's patient have a difficult to restart the tube feeding and every time restart the tube feeding patient's increase the more respirations and unable to tolerate very well Patient's at this points with extensive discussions with the pulmonary and suggest bedside aspiration pneumonia patients with ongoing severe mental r etardation's neuromuscular disorders because of the all the cerebral palsy patients very difficult to wean off from the oxygen's and very difficult to control the patient other conditions I think patients get a benefit at this point for the comfort care because nothing else can be offer with the overall patient's life expectancy is less than 6-month Discussed with the caregiver and at this point patients will discharge possible inpatient hospice with comfort care All the maximum hospitalizations with the maximum antibiotic respiratory treatments pulmonary consult everything is done with this patient's and patient still have ongoing improvement with overall patient's quality of life is very poor due to the underlying conditions I think the patient at this point very appropriate for the hospice care Physical Exam Vital Signs: Temp Pulse Resp BP Pulse Ox 98.2 F 99 24 H 110/67 96 09/07/19 20:36 09/07/19 20:36 09/07/19 20:36 09/07/19 20:36 09/07/19 20:36 Intake & Output 09/07/19 09/08/19 09/09/19 06:59 06:59 06:59 Intake Total 1000 1000 Output Total 700 675 Balance 300 325 Weight 34.7 kg 35.7 kg General appearance: PRESENT: mild distress Eye exam: PRESENT: PERRLA Respiratory exam: PRESENT: decreased breath sounds Cardiovascular exam: PRESENT: +S1, +S2 GI/Abdominal exam: PRESENT: normal bowel sounds, soft Neurological exam: PRESENT: altered Results Laboratory Results: WBC 5.8 10^3/uL (4.0-10.5) 09/05/19 04:26 RBC 3.48 10^6/uL (3.72-5.28) L 09/05/19 04:26 Hgb 11.8 g/dL (12.0-15.5) L 09/05/19 04:26 Hct 34.7 % (36.0-47.0) L 09/05/19 04:26 MCV 100 fl (80-97) H 09/05/19 04:26 MCH 33.9 pg (27.0-33.4) H 09/05/19 04:26 MCHC 34.0 g/dL (32.0-36.0) 09/05/19 04:26 RDW 13.3 % (11.5-14.0) 09/05/19 04:26 Plt Count 544 10^3/uL (150-450) H 09/05/19 04:26 Lymph % (Auto) 17.7 % (13-45) 09/05/19 04:26 Schley % (Auto) 11.3 % (3-13) 09/05/19 04:26 Eos % (Auto) 0.6 % (0-6) 09/05/19 04:26 Baso % (Auto) 0.6 % (0-2) 09/05/19 04:26 Absolute Neuts (auto) 4.0 10^3/uL (1.7-8.2) 09/05/19 04:26 Absolute Lymphs (auto) 1.0 10^3/uL (0.5-4.7) 09/05/19 04:26 Absolute Monos (auto) 0.7 10^3/uL (0.1-1.4) 09/05/19 04:26 Absolute Eos (auto) 0.0 10^3/uL (0.0-0.6) 09/05/19 04:26 Absolute Basos (auto) 0.0 10^3/uL (0.0-0.2) 09/05/19 04:26 Total Counted 100 08/22/19 20:59 Seg Neutrophils % 69.8 % (42-78) 09/05/19 04:26 Seg Neuts % (Manual) 75 % (42-78) 08/22/19 20:59 Band Neutrophils % 19 % (3-5) H 08/22/19 20:59 Lymphocytes % (Manual) 3 % (13-45) L 08/22/19 20:59 Atypical Lymphs % 1 % (0) 08/22/19 20:59 Monocytes % (Manual) 2 % (3-13) L 08/22/19 20:59 Eosinophils % (Manual) 0 % (0-6) 08/22/19 20:59 Basophils % (Manual) 0 % (0-2) 08/22/19 20:59 Abs Neuts (Manual) 10.2 10^3/uL (1.7-8.2) H 08/22/19 20:59 Abs Lymphs (Manual) 0.4 10^3/uL (0.5-4.7) L 08/22/19 20:59 Abs Monocytes (Manual) 0.2 10^3/uL (0.1-1.4) 08/22/19 20:59 Absolute Eos (Manual) 0.0 10^3/uL (0.0-0.6) 08/22/19 20:59 Abs Basophils (Manual) 0.0 10^3/uL (0.0-0.2) 08/22/19 20:59 Platelet Estimate Cancelled 08/26/19 04:44 Platelet Comment DECREASED 08/22/19 20:59 Macrocytosis 1+ 08/22/19 20:59 Sodium 134.1 mmol/L (137-145) L 09/05/19 04:26 Potassium 3.8 mmol/L (3.6-5.0) 09/05/19 04:26 Chloride 99 mmol/L (98-107) 09/05/19 04:26 Carbon Dioxide 27 mmol/L (22-30) 09/05/19 04:26 Anion Gap 8 (5-19) 09/05/19 04:26 BUN 3 mg/dL (7-20) L 09/05/19 04:26 Creatinine 0.27 mg/dL (0.52-1.25) L 09/05/19 04:26 Est GFR ( Amer) > 60 (>60) 09/05/19 04:26 Est GFR (Non-Af Amer) Cancelled 08/22/19 16:55 Est GFR (MDRD) Non-Af > 60 (>60) 09/05/19 04:26 Glucose 131 mg/dL (75-110) H 09/05/19 04:26 POC Glucose 122 mg/dL (70-110) H 09/08/19 06:15 Lactic Acid 1.5 mmol/L (0.7-2.1) 08/23/19 02:17 Calcium 8.7 mg/dL (8.4-10.2) 09/05/19 04:26 Magnesium 2.1 mg/dL (1.6-2.3) 09/04/19 18:32 Total Bilirubin 0.5 mg/dL (0.2-1.3) 08/22/19 20:59 Direct Bilirubin 0.2 mg/dL (0.0-0.4) 08/22/19 20:59 Neonat Total Bilirubin Not Reportable 08/22/19 20:59 Neonat Direct Bilirubin Not Reportable 08/22/19 20:59 Neonat Indirect Bili Not Reportable 08/22/19 20:59 AST 19 U/L (14-36) 08/22/19 20:59 ALT 19 U/L (<35) 08/22/19 20:59 Alkaline Phosphatase 126 U/L (38-126) 08/22/19 20:59 Total Protein 7.4 g/dL (6.3-8.2) 08/22/19 20:59 Albumin 4.0 g/dL (3.5-5.0) 08/22/19 20:59 EGFR Cancelled 08/22/19 16:55 Slides for Path Review Cancelled 08/26/19 04:44 Impressions: Abdomen/Pelvis CT 08/22/19 00:00 IMPRESSION: Right lower lobe pneumonia No CT evidence of bowel obstruction. Gastrojejunostomy tube in good positioning. Chest X-Ray 08/22/19 15:16 IMPRESSION: Right upper lobe airspace disease worrisome for pneumonia Chest X-Ray 08/25/19 00:00 IMPRESSION: Limited radiograph of the chest due to the anatomical distortion that results from the severe scoliotic curvature of the thoracolumbar spine. The patchy multifocal and basilar predominant parenchymal opacities are unchanged and suggest multifocal pneumonia. Chest X-Ray 08/28/19 00:00 IMPRESSION: Residual right lower lobe infiltrate. Chest X-Ray 09/04/19 00:00 IMPRESSION: Improved aeration at the right lung base consistent with resolved pneumonia. No acute cardiopulmonary disease. Plan Time Spent: Greater than 30 Minutes - Very extensive discussions with the caregiver in the care [facility] facilities and also discussed myself to the patient's mother and the last week regarding the patient's current conditions very poor prognosis and its appropriate for the hospice care and comfort care Stroke Is this a Stroke Patient?: No Acute Heart Failure - Is this a Heart Failure Patient?: No
[2019-09-08] MEDS: METOPROLOL SUCCINATE 25 MG TAB.SR.24H PO SCH ×2 (09:13→22:25)
[2019-09-08] MEDS: ENOXAPARIN SODIUM INJ 30 MG/0.3 ML DISP.SYRIN SUBCUT SCH (09:13)
[2019-09-08] MEDS: POLYETHYLENE GLYCOL 3350 POWDER 17 GM/1 PACKET PO SCH (09:13)
[2019-09-08] MEDS: METOCLOPRAMIDE HCL ORAL SOLN 10 MG/10 ML UDCUP JT SCH ×4 (09:13→22:25)
[2019-09-08] MEDS: ZONISAMIDE 100 MG CAPSULE JT SCH ×2 (09:14→22:25)
[2019-09-08] MEDS: CHOLECALCIFEROL (D3) 1,000 UNIT (25 MCG) TABLET JT SCH (09:14)
[2019-09-08] MEDS: PHENOBARBITAL 97.2 MG TABLET JT SCH (22:25)
[2019-09-09] MEDS: NYSTATIN TOPICAL POWDER 15 GM TP SCH ×4 (00:50→17:04)
[2019-09-09] MEDS: POTASSI CL 40 MEQ/D5-1/2NS 1L 40 MEQ/1,000 ML RTUINJ IV PRN (00:51)
[2019-09-09] MEDS: METOPROLOL SUCCINATE 25 MG TAB.SR.24H PO SCH ×2 (10:00→21:49)
[2019-09-09] MEDS: POLYETHYLENE GLYCOL 3350 POWDER 17 GM/1 PACKET PO SCH (10:00)
[2019-09-09] MEDS: ZONISAMIDE 100 MG CAPSULE JT SCH ×2 (10:00→21:49)
[2019-09-09] MEDS: METOCLOPRAMIDE HCL ORAL SOLN 10 MG/10 ML UDCUP JT SCH ×4 (10:00→21:49)
[2019-09-09] MEDS: CHOLECALCIFEROL (D3) 1,000 UNIT (25 MCG) TABLET JT SCH (10:00)
[2019-09-09] MEDS: ENOXAPARIN SODIUM INJ 30 MG/0.3 ML DISP.SYRIN SUBCUT SCH (10:01)
[2019-09-09] MEDS: PHENOBARBITAL 97.2 MG TABLET JT SCH (21:49)
[2019-09-10] MEDS: NYSTATIN TOPICAL POWDER 15 GM TP SCH ×3 (00:59→11:08)
[2019-09-10 08:47] VITALS: BP 90/62
[2019-09-10] MEDS: ENOXAPARIN SODIUM INJ 30 MG/0.3 ML DISP.SYRIN SUBCUT SCH (10:58)
[2019-09-10] MEDS: POLYETHYLENE GLYCOL 3350 POWDER 17 GM/1 PACKET PO SCH (10:59)
[2019-09-10] MEDS: CHOLECALCIFEROL (D3) 1,000 UNIT (25 MCG) TABLET JT SCH (11:05)
[2019-09-10] MEDS: METOCLOPRAMIDE HCL ORAL SOLN 10 MG/10 ML UDCUP JT SCH ×2 (11:07→13:32)
[2019-09-10] MEDS: ZONISAMIDE 100 MG CAPSULE JT SCH (11:08)
[2019-09-10] MEDS: METOPROLOL SUCCINATE 25 MG TAB.SR.24H PO SCH ×2 (11:08→12:23)
== END 2019-09-10 14:31 | disposition hospice, inpatient (51) | DRG 178 ==
LOC: ER 14:32 → EH 17:16 → 3N 08-23 18:10
PROVIDERS: ADMIT Family Medicine; ATTEND Family Medicine
PROC: 5A09557 Assistance with Respiratory Ventilation, Greater than 96 Consecutive Hours, Continuous Positive Airway Pressure (ICD-10-PCS; principal; 2019-08-23)
DX: J69.0 Pneumonitis due to inhalation of food and vomit (principal); F73 Profound intellectual disabilities; Z51.5 Encounter for palliative care; G80.9 Cerebral palsy, unspecified; Z93.1 Gastrostomy status; M41.9 Scoliosis, unspecified; R06.03 Acute respiratory distress; B96.5 Pseudomonas (aeruginosa) (mallei) (pseudomallei) as the cause of diseases classified elsewhere; G40.909 Epilepsy, unspecified, not intractable, without status epilepticus; R00.0 Tachycardia, unspecified; K21.9 Gastro-esophageal reflux disease without esophagitis; Z79.899 Other long term (current) drug therapy; Z66 Do not resuscitate
CPT/HCPCS: 36415; 71045; 74176; 80048; 80053; 82962; 83605; 83735; 85025; 87040; 87070; 87077; 87186; 87205; 94640; 94660; 96361; 96374; 96375; 99285; C9113; J0692; J1650; J2060; J2270; J2405; J2930; J3480; J3490; J7030; J7040; J7620; J7685; L1830; L1902

== ENCOUNTER 2019-11-25 23:46 | Inpatient (IN) | payer MEDICAID ==
[2019-11-26 00:18] LABS: ABSOLUTE MONOCYTES (AUTO) 0.6 10^3/uL (0.1-1.4); BASOPHILS % (AUTO) 0.3 % (0-2); EOSINOPHILS % (AUTO) 0.1 % (0-6); HEMOGLOBIN 13.9 g/dL (12.0-15.5); MEAN CORPUSCULAR VOLUME 93 fl (80-97); RED CELL DISTRIBUTION WIDTH 14.8 % (11.5-14.0); TOTAL CELLS COUNTED % (AUTO) 100 %
[2019-11-26 00:24] LABS: ABSOLUTE LYMPHOCYTES (AUTO) 0.9 10^3/uL (0.5-4.7); ABSOLUTE NEUT (AUTO) 11.9 10^3/uL (1.7-8.2); HEMATOCRIT 39.8 % (36.0-47.0); LYMPHOCYTES % (AUTO) 6.4 % (13-45); MEAN CORPUSCULAR HEMOGLOBIN 32.5 pg (27.0-33.4); MEAN CORPUSCULAR HGB CONC 34.8 g/dL (32.0-36.0); MONOCYTES % (AUTO) 4.3 % (3-13); PLATELET COUNT 144 10^3/uL (150-450); RED BLOOD COUNT 4.26 10^6/uL (3.72-5.28); SEGMENTED NEUTROPHILS % (AUTO) 88.9 % (42-78); WHITE BLOOD COUNT 13.4 10^3/uL (4.0-10.5)
[2019-11-26] MEDS ORDERED: NORMAL SALINE 500 ML IV ONE (00:36)
[2019-11-26] MEDS ORDERED: CEFEPIME 1 GM/D5W RTU 1 GM/50 ML RTUPB IV ONE (00:36)
--- NOTE | 2019-11-26 00:37 | ER Document Report ---
Entered by STANISLAW CASTILLO SCRIBE 11/26/19 0013 Acting as scribe for:EMMY CARRERA IV, MD ED Respiratory Problem - General Chief Complaint: Breathing Difficulty Stated Complaint: DIFFICULTY BREATHING Time Seen by Provider: 11/26/19 00:10 Primary Care Provider: OLIVERIO BABIN MD [ACTIVE STAFF] - Follow up as needed Mode of Arrival: Medic Information source: Emergency Med Personnel Notes: This 39 year old female patient with a history of cerebral palsy, mental retardation, aspiration pneumonia, and bronchitis brought in by EMS presents to the ED today with complaints of dyspnea that occurred prior to arrival. According to the ED nurse, EMS reports that the patient had a low O2 sat and a productive cough. HPI is limited due to patient's condition. TRAVEL OUTSIDE OF THE [place] IN LAST 30 DAYS: No - Related Data Allergies/Adverse Reactions: No Known Allergies Allergy (Verified 10/13/18 18:08) Past Medical History - General Information source: [facility] Records - Social History Smoking Status: Never Smoker Cigarette use (# per day): No Chew tobacco use (# tins/day): No Smoking Education Provided: No Family History: Reviewed & Not Pertinent Patient has suicidal ideation: No Patient has homicidal ideation: No Pulmonary Medical History: Reports: Hx Bronchitis, Hx Pneumonia Neurological Medical History: Reports: Hx Seizures GI Medical History: Reports: Hx Gastroesophageal Reflux Disease Musculoskeletal Medical History: Reports Hx Musculoskeletal Deformity - Kyphoscoliosis Surgical Hx: Negative - Immunizations Hx Diphtheria, Pertussis, Tetanus Vaccination: Yes Review of Systems - Review of Systems Constitutional: No symptoms reported EENT: No symptoms reported Cardiovascular: See HPI, Dyspnea Respiratory: See HPI, Cough, Sputum Gastrointestinal: No symptoms reported Genitourinary: No symptoms reported Female Genitourinary: No symptoms reported Musculoskeletal: No symptoms reported Skin: No symptoms reported Hematologic/Lymphatic: No symptoms reported Neurological/Psychological: No symptoms reported -: Yes All other systems reviewed and negative Physical Exam - Vital signs Vitals: Resp Pulse Ox 22 H 96 11/25/19 23:52 11/25/19 23:52 - General General appearance: Other - All extremities are contracted and atrophied. - HEENT Head: Normocephalic, Atraumatic Eyes: Normal Pupils: PERRL - Respiratory Respiratory status: Respiratory distress - on 3L O2 via NC Chest status: Nontender Breath sounds: Rhonchi - Breath sounds are rhonchorous bilaterally Chest palpation: Normal - Cardiovascular Rhythm: Regular, Tachycardia Heart sounds: Normal auscultation Murmur: No Friction rub: No Gallop: None auscultated - Abdominal Inspection: Normal Distension: No distension Bowel sounds: Normal Tenderness: Nontender - Abdomen soft Organomegaly: No organomegaly - Back Back: Normal, Nontender - Extremities Notes: All extremities are contracted and atrophied. - Neurological Neuro grossly intact: Yes - Psychological Associated symptoms: Normal affect, Normal mood - Skin Skin Temperature: Warm Skin Moisture: Dry Skin Color: Normal Course - Vital Signs Vital signs: Temp Pulse Resp BP Pulse Ox 100.3 F 23 H 121/87 H 98 11/26/19 00:04 11/25/19 23:54 11/25/19 23:54 11/26/19 00:05 - Laboratory Result Diagrams: 11/25/19 23:55 11/25/19 23:55 Laboratory results interpreted by me: 11/25/19 11/25/19 23:55 23:55 WBC 13.4 H RDW 14.8 H Plt Count 144 L Lymph % (Auto) 6.4 L Absolute Neuts (auto) 11.9 H Seg Neutrophils % 88.9 H Sodium 129.8 L Potassium 3.3 L Chloride 95 L Creatinine 0.20 L Glucose 144 H - Diagnostic Test Radiology reviewed: Reports reviewed - Consults DR. KING, [employer] FOR DR. BABIN Time consulted: 01:48 - STATED ADMIT PT TO IMCU FOR ASPIRATION UNDER DR. BABIN'S NAME Reason for consultation: 11/26/19 01:48 HYPOXIA, RESPIRATORY DISTRESS, FEVER Discharge - Discharge Clinical Impression: Respiratory distress, Hypoxia, Fever Condition: Fair Disposition: ADMITTED INPATIENT Admitting Provider: Herb Unit Admitted: IMCU Referrals: OLIVERIO BABIN MD [ACTIVE STAFF] - Follow up as needed I personally performed the services described in the documentation, reviewed and edited the documentation which was dictated to the scribe in my presence, and it accurately records my words and actions.
[2019-11-26 00:48] LABS: ALBUMIN 3.9 g/dL (3.5-5.0); ALKALINE PHOSPHATASE 109 U/L (38-126); ANION GAP 10 (5-19); ASPARTATE AMINO TRANSFERASE 19 U/L (14-36); BILIRUBIN,TOTAL 0.6 mg/dL (0.2-1.3); BLOOD UREA NITROGEN 11 mg/dL (7-20); CARBON DIOXIDE 25 mmol/L (22-30); CHLORIDE 95 mmol/L (98-107); GLUCOSE 144 mg/dL (75-110); POTASSIUM 3.3 mmol/L (3.6-5.0)
[2019-11-26 01:02] LABS: INTERNATIONAL RATION (INR) 1.06; PROTHROMBIN TIME 13.8 SEC (11.4-15.4)
--- NOTE | 2019-11-26 01:40 | RADIOLOGY REPORT (SQ) ---
Chest one view on 11/26/2019 at 12:37 AM CLINICAL INDICATION: Shortness of breath COMPARISON: 09/04/2019 FINDINGS: Severe scoliosis of the spine is again noted. Heart is within normal limits for size. The lungs appear clear. No acute bony around is noted. IMPRESSION: No acute disease noted.
[2019-11-26] MEDS ORDERED: CLINDAMYCIN 600 MG/D5W RTU 600 MG/50 ML RTUPB IV ONE (01:54)
[2019-11-26] MEDS ORDERED: ALBUTEROL SULFATE HFA (90 MCG/PUFF) 8 GM MDI IH PRN (06:27)
[2019-11-26] MEDS ORDERED: LEVALBUTEROL HCL NEB 0.63 MG/3 ML AMPUL NEB PRN (06:32)
[2019-11-26] MEDS ORDERED: HYOSCYAMINE SULFATE PO SCH (06:45)
[2019-11-26] MEDS ORDERED: PHENOBARBITAL 97.2 MG TABLET PO ONE (07:00)
[2019-11-26] MEDS ORDERED: ALBUTEROL SULFATE HFA (90 MCG/PUFF) 200 PUFF/8.5 GM MDI IH PRN (07:41)
[2019-11-26] MEDS: RINGERS SOLUTION,LACTATED 1,000 ML IV PRN (07:53)
[2019-11-26] MEDS: CEFTRIAXONE 1 GM/D5W RTU 1 GM/50 ML RTUPB IV SCH (08:02)
--- NOTE | 2019-11-26 09:07 | EKG REPORT ---
SEVERITY:- BORDERLINE ECG - SINUS TACHYCARDIA BORDERLINE T ABNORMALITIES, ANTERIOR LEADS : Confirmed by: Saray Coombs MD 26-Nov-2019 09:06:30
[2019-11-26] MEDS: CHOLECALCIFEROL (D3) 1,000 UNIT (25 MCG) TABLET PO SCH (09:46)
[2019-11-26] MEDS: PANTOPRAZOLE SODIUM 40 MG TABLET.DR PO SCH (09:46)
[2019-11-26] MEDS: ZONISAMIDE 100 MG CAPSULE PO SCH ×2 (09:47→18:25)
[2019-11-26] MEDS ORDERED: METOPROLOL SUCCINATE 25 MG TAB.SR.24H PO SCH (10:00)
[2019-11-26] MEDS: ENOXAPARIN SODIUM INJ 40 MG/0.4 ML DISP.SYRIN SUBCUT SCH (10:12)
[2019-11-26] MEDS: LEVOFLOXACIN 750 MG/D5W RTU 750 MG/150 ML RTUPB IV SCH (10:12)
[2019-11-26 10:18] LABS: CREATINE KINASE MB 1.41 ng/mL (<4.55); TROPONIN I < 0.012 ng/mL
[2019-11-26] MEDS ORDERED: LABETALOL HCL INJ 20 MG/4 ML DISP.SYRIN IV ONE (10:49)
[2019-11-26] MEDS: LABETALOL HCL INJ 20 MG/4 ML DISP.SYRIN IV SCH ×2 (10:50→17:23)
[2019-11-26] MEDS ORDERED: LEVETIRACETAM 500 MG/NACL-ISO 500 MG/100 ML RTUPB IV SCH (12:00)
[2019-11-26] MEDS ORDERED: ACETAMINOPHEN 650 MG SUPP.RECT PR PRN (12:45)
--- NOTE | 2019-11-26 16:19 | PDOC H&P ---
History of Present Illness Admission Date/PCP: 11/26/19 01:58 NANDINI PARKER MD History of Present Illness: KISHAN GUADARRAMA is a 39 year old female, Patient came to emergency room this morning to be evaluated for shortness of breath, she is an unfortunate young female with severe cerebral palsy, severe spinal scoliosis, she is nonverbal a DNR status she lives in a detention, she was recently discharged from this hospital on August 2019, in the emergency room she was evaluated she was diagnosed with pneumonia admitted in COVID floor for rule out ,though unlikely, no history could be obtained from this patient.She has very unusual anatomy the torso seems from the lower extremity in different direction.I reviewed the chest x-ray, there is no definitive infiltrate on the chest x-ray, but I do not know how reliable this chest x-ray is especially in this patient with very distorted anatomy.. She has a PEG tube, there is a concern initially that the PEG tube was not functioning appropriately because the abdomen looks distended but on examination the abdomen on palpation is soft, there is no guarding on inspection there is no apparent distention, the PEG tube is probably functioning well.Patient is very miserable, she is not vocalizing difficult to discern how much difficulty or pain she is in ,but she has sinus tachycardia leukocytosis all this suggests ongoing infection. She will empirically be treated with IV antibiotic to cover potential pathogens, community-acquired pathogens, she will empirically be treated with intravenous Levaquin, ceftriaxone, nasal swab obtained for coronavirus. Past Medical History Pulmonary Medical History: Reports: Bronchitis, Pneumonia Neurological Medical History: Reports: Seizures GI Medical History: Reports: Gastroesophageal Reflux Disease Social History Smoking Status: Never Smoker Electronic Cigarette use?: No Frequency of Alcohol Use: None Hx Recreational Drug Use: No Drugs: None Hx Prescription Drug Abuse: No Family History Family History: Reviewed & Not Pertinent Parental Family History Reviewed: Yes Children Family History Reviewed: Yes Sibling(s) Family History Reviewed.: Yes Medication/Allergy Home Medications: RX: Hyoscyamine Sulfate [Hyosyne] 0.25 mg JT Q6 08/23/19 RX: Ibuprofen [Children's Ibuprofen] 400 mg JT Q6HP PRN 08/23/19 RX: Lansoprazole [Prevacid 30 mg Odt Tablet] 30 mg JT NOON 08/23/19 RX: Levalbuterol HCl [Xopenex Neb 0.63 mg/3 ml Ampul] 0.63 mg NEB RTQ6HP PRN 04/04 RX: Metoclopramide HCl [Reglan Oral Soln 10 mg/10 ml Udcup] 10 mg JT QID 08/23/19 RX: Phenobarbital [Phenobarbital 97.2 mg Tablet] 97.2 mg JT QAM 08/23/19 RX: Polyethylene Glycol 3350 [Miralax Powder 17 gm/Packet] 1 packet JT QHS 08/23/19 RX: Promethazine HCl 12.5 mg OR Q6HP PRN 08/23/19 Diazepam [Diastat Acudial 10 Mg/2 Ml Rectal Gel] 10 mg OR Q6HP PRN 11/26/19 Allergies/Adverse Reactions: No Known Allergies Allergy (Verified 10/13/18 18:08) Review of Systems ROS unobtainable: Other Physical Exam Vital Signs: Temp Pulse Resp BP Pulse Ox 99.7 F 123 H 23 H 147/76 H 98 11/26/19 11:45 11/26/19 11:45 11/26/19 11:45 11/26/19 11:45 11/26/19 11:45 Intake & Output 11/25/19 11/26/19 11/27/19 06:59 06:59 06:59 Intake Total 600 300 Balance 600 300 Weight 33.6 kg General appearance: PRESENT: mild distress Eye exam: PRESENT: PERRLA Respiratory exam: PRESENT: rhonchi Cardiovascular exam: PRESENT: irregular rhythm, +S1, +S2, tachycardia GI/Abdominal exam: PRESENT: soft, other - PEG tube Musculoskeletal exam: PRESENT: deformity Neurological exam: PRESENT: altered Results Laboratory Results: 11/25/19 23:55 11/25/19 23:55 11/25/19 11/25/19 11/25/19 23:55 23:55 23:55 WBC 13.4 H RBC 4.26 Hgb 13.9 Hct 39.8 MCV 93 MCH 32.5 MCHC 34.8 RDW 14.8 H Plt Count 144 L Seg Neutrophils % 88.9 H Sodium 129.8 L Potassium 3.3 L Chloride 95 L Carbon Dioxide 25 Anion Gap 10 BUN 11 Creatinine 0.20 L Est GFR ( Amer) > 60 Glucose 144 H Lactic Acid 1.9 Calcium 9.0 Total Bilirubin 0.6 AST 19 Alkaline Phosphatase 109 Total Protein 7.0 Albumin 3.9 11/26/19 11/26/19 03:49 06:55 WBC RBC Hgb Hct MCV MCH MCHC RDW Plt Count Seg Neutrophils % Sodium Potassium Chloride Carbon Dioxide Anion Gap BUN Creatinine Est GFR ( Amer) Glucose Lactic Acid 2.6 H 2.0 Calcium Total Bilirubin AST Alkaline Phosphatase Total Protein Albumin 11/26/19 11/26/19 09:40 09:40 Creatine Kinase 21 L CK-MB (CK-2) 1.41 Troponin I < 0.012 Impressions: Chest X-Ray 11/26/19 00:05 IMPRESSION: No acute disease noted. Assessment & Plan - Diagnosis (1) Pneumonia Qualifiers: Pneumonia type: due to unspecified organism Laterality: unspecified laterality Lung location: unspecified part of lung Qualified Code(s): J18.9 - Pneumonia, unspecified organism Is this a current diagnosis for this admission?: Yes Plan: Patient is admitted for management, start empiric IV antibiotic to cover community-acquired pathogens
[2019-11-26] MEDS: LORAZEPAM INJ 2 MG/1 ML VIAL IV PRN (18:25)
[2019-11-26] MEDS: PHENOBARBITAL 97.2 MG TABLET PO SCH (21:15)
[2019-11-27] MEDS: LABETALOL HCL INJ 20 MG/4 ML DISP.SYRIN IV SCH ×4 (01:56→19:16)
[2019-11-27] MEDS: RINGERS SOLUTION,LACTATED 1,000 ML IV PRN ×2 (02:18→19:10)
[2019-11-27 05:16] LABS: APPEARANCE,URINE SLIGHTLY-CLOUDY; BILIRUBIN,URINE NEGATIVE (NEGATIVE); COLOR,URINE YELLOW; GLUCOSE, URINE NEGATIVE (NEGATIVE); KETONES,URINE NEGATIVE (NEGATIVE); LEUKOCYTE ESTERASE,URINE TRACE (NEGATIVE); NITRITE,URINE NEGATIVE (NEGATIVE); PROTEIN,URINE NEGATIVE (NEGATIVE); URINE SPECIFIC GRAVITY 1.015; UROBILINOGEN,URINE NEGATIVE mg/dL (<2.0)
[2019-11-27 06:37] LABS: ABSOLUTE EOSINOPHILS # (AUTO) 0.1 10^3/uL (0.0-0.6); ABSOLUTE LYMPHOCYTES (AUTO) 0.9 10^3/uL (0.5-4.7); ABSOLUTE MONOCYTES (AUTO) 0.5 10^3/uL (0.1-1.4); ABSOLUTE NEUT (AUTO) 3.9 10^3/uL (1.7-8.2); BASOPHILS % (AUTO) 0.7 % (0-2); EOSINOPHILS % (AUTO) 1.1 % (0-6); HEMATOCRIT 33.4 % (36.0-47.0); MEAN CORPUSCULAR VOLUME 94 fl (80-97); MONOCYTES % (AUTO) 8.6 % (3-13); RED BLOOD COUNT 3.55 10^6/uL (3.72-5.28); RED CELL DISTRIBUTION WIDTH 14.7 % (11.5-14.0); SEGMENTED NEUTROPHILS % (AUTO) 73.6 % (42-78); TOTAL CELLS COUNTED % (AUTO) 100 %; WHITE BLOOD COUNT 5.3 10^3/uL (4.0-10.5)
[2019-11-27 06:46] LABS: ALKALINE PHOSPHATASE 67 U/L (38-126); ANION GAP 5 (5-19); ASPARTATE AMINO TRANSFERASE 19 U/L (14-36); BILIRUBIN,TOTAL 0.3 mg/dL (0.2-1.3); BLOOD UREA NITROGEN 12 mg/dL (7-20); CALCIUM 8.4 mg/dL (8.4-10.2); CARBON DIOXIDE 29 mmol/L (22-30); CHLORIDE 100 mmol/L (98-107); GLUCOSE 121 mg/dL (75-110); POTASSIUM 3.4 mmol/L (3.6-5.0); TOTAL PROTEIN 5.8 g/dL (6.3-8.2)
[2019-11-27 07:36] LABS: HEMOGLOBIN 11.3 g/dL (12.0-15.5)
[2019-11-27 07:40] LABS: PLATELET COUNT 92 10^3/uL (150-450)
[2019-11-27] MEDS: CEFTRIAXONE 1 GM/D5W RTU 1 GM/50 ML RTUPB IV SCH (08:00)
[2019-11-27] MEDS: ENOXAPARIN SODIUM INJ 40 MG/0.4 ML DISP.SYRIN SUBCUT SCH (09:16)
[2019-11-27] MEDS: CHOLECALCIFEROL (D3) 1,000 UNIT (25 MCG) TABLET PO SCH (09:22)
[2019-11-27] MEDS: PANTOPRAZOLE SODIUM 40 MG TABLET.DR PO SCH (09:22)
[2019-11-27] MEDS: LEVOFLOXACIN 750 MG/D5W RTU 750 MG/150 ML RTUPB IV SCH (09:22)
[2019-11-27] MEDS: LORAZEPAM INJ 2 MG/1 ML VIAL IV PRN (09:23)
[2019-11-27] MEDS: ZONISAMIDE 100 MG CAPSULE PO SCH ×2 (09:23→19:16)
--- NOTE | 2019-11-27 13:11 | PDOC PROGRESS REPORT ---
Subjective Progress Note for:: 11/27/19 Subjective:: This is a 39-year-old femaleAdmitting in the hospitals for the pneumonia Patient was put on IV Rocephin and Levaquin And is currently doing fair still tachypneic Patient's chest x-ray is all stable Patient with significant medical issues including the severe mental r etardation's cerebral palsy and scoliosisAnd his severe respiratory issues last time admitting the pulmonary evaluation done nothing much can be offer discussed with the patient's caregiver and family member and patient was put in the hospice care As per discussed with the today's caregiver at alf and patient is pretty much admitted to rule out the covid But no any exposure unlikely because of the alf to rule out the covid The patient covid test neg Then suggest to inpatient hospice will consult the mechanical planner Patient is currently DNR/DNI Reason For Visit: PNEUMONIA,HYPONATREMIA,HYPOKALEMIA Physical Exam Vital Signs: Temp Pulse Resp BP Pulse Ox 97.5 F 112 H 40 H 158/87 H 95 11/27/19 07:41 11/27/19 09:00 11/27/19 09:00 11/27/19 07:41 11/27/19 09:00 Intake & Output 11/26/19 11/27/19 11/28/19 06:59 06:59 06:59 Intake Total 600 1300 50 Balance 600 1300 50 Weight 33.6 kg 33.6 kg General appearance: PRESENT: mild distress Eye exam: PRESENT: PERRLA Mouth exam: PRESENT: neck supple Respiratory exam: PRESENT: decreased breath sounds, tachypnea Cardiovascular exam: PRESENT: +S1, +S2 GI/Abdominal exam: PRESENT: normal bowel sounds Additonal comments: g tube present Neurological exam: PRESENT: alert, awake Results Laboratory Results: 11/27/19 06:01 11/27/19 06:01 11/27/19 11/27/19 11/27/19 04:25 06:01 06:01 WBC 5.3 RBC 3.55 L Hgb 11.3 L D Hct 33.4 L MCV 94 MCH 32.0 MCHC 34.0 RDW 14.7 H Plt Count 92 L Seg Neutrophils % 73.6 Sodium 133.5 L Potassium 3.4 L Chloride 100 Carbon Dioxide 29 Anion Gap 5 BUN 12 Creatinine 0.20 L Est GFR ( Amer) > 60 Glucose 121 H Calcium 8.4 Total Bilirubin 0.3 AST 19 Alkaline Phosphatase 67 Total Protein 5.8 L Albumin 3.0 L Urine Color YELLOW Urine Appearance SLIGHTLY-CLOUDY Urine pH 5.0 Ur Specific [place] 1.015 Urine Protein NEGATIVE Urine Glucose (UA) NEGATIVE Urine Ketones NEGATIVE Urine Blood SMALL H Urine Nitrite NEGATIVE Ur Leukocyte Esterase TRACE H Urine WBC (Auto) 11 Urine RBC (Auto) 16 11/26/19 11/26/19 09:40 09:40 Creatine Kinase 21 L CK-MB (CK-2) 1.41 Troponin I < 0.012 Impressions: Chest X-Ray 11/26/19 00:05 IMPRESSION: No acute disease noted. Assessment & Plan - Diagnosis (1) Pneumonia Qualifiers: Pneumonia type: due to unspecified organism Laterality: unspecified laterality Lung location: unspecified part of lung Qualified Code(s): J18.9 - Pneumonia, unspecified organism Is this a current diagnosis for this admission?: Yes (2) Respiratory distress Is this a current diagnosis for this admission?: Yes (3) Cerebral palsy Qualifiers: Cerebral palsy type: unspecified type Qualified Code(s): G80.9 - Cerebral palsy, unspecified Is this a current diagnosis for this admission?: Yes (4) Mental and behavioral problem Is this a current diagnosis for this admission?: Yes (6) Tachycardia Is this a current diagnosis for this admission?: Yes (7) Uses feeding tube Is this a current diagnosis for this admission?: Yes - Time Time Spent with patient: 25-34 minutes Level of Care: MEDICAL Medications reviewed and adjusted accordingly: Yes Anticipated discharge: Hospice Within: Other - Plan Summary Plan Summary: Continues the IV antibiotic Discussed with the caregiver at alf and already discussed in the past patient was put in the hospice and they prefer inpatient hospice
[2019-11-27] MEDS: MORPHINE SULFATE 10 MG/ML INJ IV PRN (13:43)
--- NOTE | 2019-11-27 14:13 | CDI QUERY ---
CDI Query CDI Review: Dear Provider: To better reflect your patients severity of illness, morbidity, and resource utilization Please specify and document in the Progress Notes and Discharge Summary if you are monitoring / treating / evaluating any of the following conditions: Query Clinical indicators Please clarify and document if the pneumonia can be further specified: Aspiration pneumonia Gram negative herrera pneumonia Gram positive pneumonia Viral pneumonia Unable to determine Other Per ED note: EMS reports that the patient had a low O2 sat and a productive cough STATED ADMIT PT TO IMCU FOR ASPIRATION UNDER DR. BABIN'S NAME in the emergency room she was evaluated she was diagnosed with pneumonia She has very unusual anatomy the torso seems from the lower extremity in different direction.I reviewed the chest x-ray, there is no definitive infiltrate on the chest x-ray, but I do not know how reliable this chest x-ray is especially in this patient with very distorted anatomy WBC 13.4 Peg tube The terms probable, suspected, likely, possible or still to be ruled out may be used if you are unable to determine the exact nature of a condition. Thank you for your consideration, Clinical Documentation Physician Advisors HENRIK Desai RN, BSN RN Office [phone] Office [phone]
[2019-11-27] MEDS: PHENOBARBITAL 97.2 MG TABLET PO SCH (21:30)
[2019-11-28] MEDS: LABETALOL HCL INJ 20 MG/4 ML DISP.SYRIN IV SCH ×2 (00:29→06:30)
[2019-11-28] MEDS: PANTOPRAZOLE SODIUM 40 MG TABLET.DR PO SCH (06:30)
[2019-11-28] MEDS: CEFTRIAXONE 1 GM/D5W RTU 1 GM/50 ML RTUPB IV SCH (10:30)
--- NOTE | 2019-11-28 10:30 | PDOC PROGRESS REPORT ---
Subjective Progress Note for:: 11/28/19 Subjective:: Patient is currently doing same Patient still on 5 L nasal cannula Patient at this point discussed with the caregiver going back to the hospice most likely inpatient hospice Reason For Visit: PNEUMONIA,HYPONATREMIA,HYPOKALEMIA Physical Exam Vital Signs: Temp Pulse Resp BP Pulse Ox 97.8 F 90 32 H 127/63 H 100 11/28/19 07:54 11/28/19 08:04 11/28/19 08:04 11/28/19 07:54 11/28/19 08:04 Intake & Output 11/27/19 11/28/19 11/29/19 06:59 06:59 06:59 Intake Total 1300 1630 Balance 1300 1630 Weight 33.6 kg 33.7 kg General appearance: PRESENT: mild distress Eye exam: PRESENT: PERRLA Mouth exam: PRESENT: neck supple Respiratory exam: PRESENT: decreased breath sounds, tachypnea Cardiovascular exam: PRESENT: +S1, +S2 GI/Abdominal exam: PRESENT: normal bowel sounds, soft Neurological exam: PRESENT: alert, awake Results Laboratory Results: 11/27/19 06:01 11/27/19 06:01 11/26/19 11/26/19 09:40 09:40 Creatine Kinase 21 L CK-MB (CK-2) 1.41 Troponin I < 0.012 Impressions: Chest X-Ray 11/26/19 00:05 IMPRESSION: No acute disease noted. Assessment & Plan - Diagnosis (1) Pneumonia Qualifiers: Pneumonia type: due to unspecified organism Laterality: unspecified laterality Lung location: unspecified part of lung Qualified Code(s): J18.9 - Pneumonia, unspecified organism Is this a current diagnosis for this admission?: Yes (2) Respiratory distress Is this a current diagnosis for this admission?: Yes (3) Cerebral palsy Qualifiers: Cerebral palsy type: unspecified type Qualified Code(s): G80.9 - Cerebral palsy, unspecified Is this a current diagnosis for this admission?: Yes (4) Mental and behavioral problem Is this a current diagnosis for this admission?: Yes (6) Tachycardia Is this a current diagnosis for this admission?: Yes (7) Uses feeding tube Is this a current diagnosis for this admission?: Yes - Time Time Spent with patient: 15-24 minutes Level of Care: MEDICAL Medications reviewed and adjusted accordingly: Yes Anticipated discharge: Hospice Within: Other - Plan Summary Plan Summary: Due to the multiple medical conditions with a severe mental retardation's cerebral palsy chronic respiratory failure and severe scoliosis at this point patient is always risk for aspirations pneumonia even with the tube I think patients at this point pretty much appropriate for the hospice care
[2019-11-28] MEDS: ENOXAPARIN SODIUM INJ 30 MG/0.3 ML DISP.SYRIN SUBCUT SCH (10:38)
[2019-11-28] MEDS: MORPHINE SULFATE 10 MG/ML INJ IV PRN ×2 (11:06→18:25)
[2019-11-28] MEDS: LEVOFLOXACIN 750 MG/D5W RTU 750 MG/150 ML RTUPB IV SCH (11:33)
[2019-11-28] MEDS: CHOLECALCIFEROL (D3) 1,000 UNIT (25 MCG) TABLET PO SCH (11:33)
[2019-11-28] MEDS: ZONISAMIDE 100 MG CAPSULE PO SCH ×2 (11:33→18:37)
[2019-11-28] MEDS: LORAZEPAM INJ 2 MG/1 ML VIAL IV PRN (15:26)
[2019-11-28] MEDS: PHENOBARBITAL 97.2 MG TABLET PO SCH (23:14)
[2019-11-29] MEDS: PANTOPRAZOLE SODIUM 40 MG TABLET.DR PO SCH (06:50)
--- NOTE | 2019-11-29 08:40 | PDOC DISCHARGE SUMMARY ---
Impression - Admit/DC Date/PCP Admission Date/Primary Care Provider: 11/26/19 01:58 NANDINI PARKER MD Discharge Date: 11/29/19 - Discharge Diagnosis (1) Pneumonia Is this a current diagnosis for this admission?: Yes (2) Respiratory distress Is this a current diagnosis for this admission?: Yes (3) Cerebral palsy Is this a current diagnosis for this admission?: Yes (4) Mental and behavioral problem Is this a current diagnosis for this admission?: Yes (6) Tachycardia Is this a current diagnosis for this admission?: Yes (7) Uses feeding tube Is this a current diagnosis for this admission?: Yes - Additional Information Discharge Diet: Tube Feeding (Comments) Referrals: [facility] [Outside] (PATIENT TO BE FOLLOWED BY HEALTH DEPT. ON SELF QUARANTINE AT HOME. ONCE THE HEALTH DEPT. RELEASES PATIENT THEN PATIENT MAY SCHEDULE A FOLLOW UP APPT. WITH PCP.) OLIVERIO BABIN MD [ACTIVE STAFF] - Follow up as needed Prescriptions: Amoxicillin/Potassium Clav [Augmentin 400-57 mg/5 ml Susp] 400 mg PO Q8 #120 bottle Home Medications: Hyoscyamine Sulfate [Hyosyne] 0.25 mg JT Q6 08/23/19 Ibuprofen [Children's Ibuprofen] 400 mg JT Q6HP PRN 08/23/19 Lansoprazole [Prevacid 30 mg Odt Tablet] 30 mg JT NOON 08/23/19 Levalbuterol HCl [Xopenex Neb 0.63 mg/3 ml Ampul] 0.63 mg NEB RTQ6HP PRN 08/23/19 Metoclopramide HCl [Reglan Oral Soln 10 mg/10 ml Udcup] 10 mg JT QID 08/23/19 Phenobarbital [Phenobarbital 97.2 mg Tablet] 97.2 mg JT QAM 08/23/19 Polyethylene Glycol 3350 [Miralax Powder 17 gm/Packet] 1 packet JT QHS 08/23/19 Promethazine HCl 12.5 mg SD Q6HP PRN 08/23/19 Diazepam [Diastat Acudial 10 mg/2 ml Rectal Gel] 10 mg SD Q6HP PRN 11/26/19 Amoxicillin/Potassium Clav [Augmentin 400-57 mg/5 ml Susp] 400 mg PO Q8 #120 bottle 11/28/19 History of Present Illiness History of Present Illness: KISHAN GUADARRAMA is a 39 year old female This is a 39-year-old female's with a multiple medical problem including the history of the cerebral palsy mental retardation's severe scoliosis respiratory failure and recurrent aspirations pneumonia PEG tube placement came with the fever cough to rule out any COVID Patient initially in a hospice care right now Hospital Course Hospital Course: This is a 39-year-old female's with the as medical problem about presenting the emergency department with a cough fever and patient is currently live in a [facility] to rule out COVID patient's COVID test was negative patient start with the IV antibiotic to treat the pneumonia Patient have extensive history of the aspirations pneumonia recurrent with respiratory failure several hospital admissions for various pulmonary evaluations done with the multiple comorbidity nothing much can be offer patient's was DNR and DNI very extra discussed on myself with the patient's family member in the last admissions and discuss again with the patient's caregiver and patient is currently preferred to go to the inpatient hospice careAnd all comfort care Physical Exam Vital Signs: Temp Pulse Resp BP Pulse Ox 97.8 F 90 32 H 127/63 H 100 11/28/19 07:54 11/28/19 08:04 11/28/19 08:04 11/28/19 07:54 11/28/19 08:04 Intake & Output 11/27/19 11/28/19 11/29/19 06:59 06:59 06:59 Intake Total 1300 1630 Balance 1300 1630 Weight 33.6 kg 33.7 kg General appearance: PRESENT: mild distress Eye exam: PRESENT: PERRLA Mouth exam: PRESENT: neck supple GI/Abdominal exam: PRESENT: normal bowel sounds, soft Neurological exam: PRESENT: alert Skin exam: PRESENT: dry Results Laboratory Results: WBC 5.3 10^3/uL (4.0-10.5) 11/27/19 06:01 RBC 3.55 10^6/uL (3.72-5.28) L 11/27/19 06:01 Hgb 11.3 g/dL (12.0-15.5) L D 11/27/19 06:01 Hct 33.4 % (36.0-47.0) L 11/27/19 06:01 MCV 94 fl (80-97) 11/27/19 06:01 MCH 32.0 pg (27.0-33.4) 11/27/19 06:01 MCHC 34.0 g/dL (32.0-36.0) 11/27/19 06:01 RDW 14.7 % (11.5-14.0) H 11/27/19 06:01 Plt Count 92 10^3/uL (150-450) L 11/27/19 06:01 Lymph % (Auto) 16.0 % (13-45) 11/27/19 06:01 Bond % (Auto) 8.6 % (3-13) 11/27/19 06:01 Eos % (Auto) 1.1 % (0-6) 11/27/19 06:01 Baso % (Auto) 0.7 % (0-2) 11/27/19 06:01 Absolute Neuts (auto) 3.9 10^3/uL (1.7-8.2) 11/27/19 06:01 Absolute Lymphs (auto) 0.9 10^3/uL (0.5-4.7) 11/27/19 06:01 Absolute Monos (auto) 0.5 10^3/uL (0.1-1.4) 11/27/19 06:01 Absolute Eos (auto) 0.1 10^3/uL (0.0-0.6) 11/27/19 06:01 Absolute Basos (auto) 0.0 10^3/uL (0.0-0.2) 11/27/19 06:01 Seg Neutrophils % 73.6 % (42-78) 11/27/19 06:01 PT 13.8 SEC (11.4-15.4) 11/25/19 23:55 INR 1.06 11/25/19 23:55 Sodium 133.5 mmol/L (137-145) L 11/27/19 06:01 Potassium 3.4 mmol/L (3.6-5.0) L 11/27/19 06:01 Chloride 100 mmol/L (98-107) 11/27/19 06:01 Carbon Dioxide 29 mmol/L (22-30) 11/27/19 06:01 Anion Gap 5 (5-19) 11/27/19 06:01 BUN 12 mg/dL (7-20) 11/27/19 06:01 Creatinine 0.20 mg/dL (0.52-1.25) L 11/27/19 06:01 Est GFR ( Amer) > 60 (>60) 11/27/19 06:01 Est GFR (MDRD) Non-Af > 60 (>60) 11/27/19 06:01 Glucose 121 mg/dL (75-110) H 11/27/19 06:01 POC Glucose 119 mg/dL (70-110) H 11/28/19 06:20 Hemoglobin A1c % 4.5 % (4.7-6.0) L 11/27/19 06:01 Lactic Acid 2.0 mmol/L (0.7-2.1) 11/26/19 06:55 Calcium 8.4 mg/dL (8.4-10.2) 11/27/19 06:01 Total Bilirubin 0.3 mg/dL (0.2-1.3) 11/27/19 06:01 Direct Bilirubin 0.0 mg/dL (0.0-0.4) 11/27/19 06:01 Neonat Total Bilirubin Not Reportable 11/27/19 06:01 Neonat Direct Bilirubin Not Reportable 11/27/19 06:01 Neonat Indirect Bili Not Reportable 11/27/19 06:01 AST 19 U/L (14-36) 11/27/19 06:01 ALT 12 U/L (<35) 11/27/19 06:01 Alkaline Phosphatase 67 U/L (38-126) 11/27/19 06:01 Creatine Kinase 21 U/L (30-135) L 11/26/19 09:40 CK-MB (CK-2) 1.41 ng/mL (<4.55) 11/26/19 09:40 Troponin I < 0.012 ng/mL 11/26/19 09:40 Total Protein 5.8 g/dL (6.3-8.2) L 11/27/19 06:01 Albumin 3.0 g/dL (3.5-5.0) L 11/27/19 06:01 Urine Color YELLOW 11/27/19 04:25 Urine Appearance SLIGHTLY-CLOUDY 11/27/19 04:25 Urine pH 5.0 (5.0-9.0) 11/27/19 04:25 Ur Specific [place] 1.015 11/27/19 04:25 Urine Protein NEGATIVE mg/dL (NEGATIVE) 11/27/19 04:25 Urine Glucose (UA) NEGATIVE mg/dL (NEGATIVE) 11/27/19 04:25 Urine Ketones NEGATIVE mg/dL (NEGATIVE) 11/27/19 04:25 Urine Blood SMALL (NEGATIVE) H 11/27/19 04:25 Urine Nitrite NEGATIVE (NEGATIVE) 11/27/19 04:25 Urine Bilirubin NEGATIVE (NEGATIVE) 11/27/19 04:25 Urine Urobilinogen NEGATIVE mg/dL (<2.0) 11/27/19 04:25 Ur Leukocyte Esterase TRACE (NEGATIVE) H 11/27/19 04:25 Urine WBC (Auto) 11 /HPF 11/27/19 04:25 Urine RBC (Auto) 16 /HPF 11/27/19 04:25 Squamous Epi Cells Auto 1 /HPF 11/27/19 04:25 Urine Mucus (Auto) OCC /LPF 11/27/19 04:25 Urine Ascorbic Acid 40 (NEGATIVE) H 11/27/19 04:25 COVID-19 Source NASOPHARYNGEAL 11/26/19 03:48 COVID-19 (YOHAN) NOT DETECTED 11/26/19 03:48 11/26/19 09:40 CK-MB (CK-2) 1.41 Troponin I < 0.012 Impressions: Chest X-Ray 11/26/19 00:05 IMPRESSION: No acute disease noted. Stroke Is this a Stroke Patient?: No Acute Heart Failure - Is this a Heart Failure Patient?: No
[2019-11-29] MEDS: LEVOFLOXACIN 750 MG/D5W RTU 750 MG/150 ML RTUPB IV SCH (09:06)
[2019-11-29] MEDS: CHOLECALCIFEROL (D3) 1,000 UNIT (25 MCG) TABLET PO SCH (09:06)
[2019-11-29] MEDS: CEFTRIAXONE 1 GM/D5W RTU 1 GM/50 ML RTUPB IV SCH (09:06)
[2019-11-29] MEDS: ENOXAPARIN SODIUM INJ 30 MG/0.3 ML DISP.SYRIN SUBCUT SCH (09:07)
[2019-11-29 11:52] LABS: HEMATOCRIT 34.6 % (36.0-47.0); HEMOGLOBIN 11.9 g/dL (12.0-15.5); MEAN CORPUSCULAR HEMOGLOBIN 31.9 pg (27.0-33.4); MEAN CORPUSCULAR HGB CONC 34.4 g/dL (32.0-36.0); MEAN CORPUSCULAR VOLUME 93 fl (80-97); PLATELET COUNT 149 10^3/uL (150-450); RED BLOOD COUNT 3.73 10^6/uL (3.72-5.28); RED CELL DISTRIBUTION WIDTH 14.3 % (11.5-14.0); WHITE BLOOD COUNT 5.5 10^3/uL (4.0-10.5)
[2019-11-29 12:32] LABS: ANION GAP 7 (5-19); BLOOD UREA NITROGEN 6 mg/dL (7-20); CALCIUM 8.5 mg/dL (8.4-10.2); CARBON DIOXIDE 27 mmol/L (22-30); CHLORIDE 98 mmol/L (98-107); GLUCOSE 133 mg/dL (75-110); POTASSIUM 3.6 mmol/L (3.6-5.0)
[2019-11-29 14:17] VITALS: BP 131/90
[2019-11-29] MEDS: ZONISAMIDE 100 MG CAPSULE PO SCH (15:13)
[2019-11-29] MEDS: MORPHINE SULFATE 10 MG/ML INJ IV PRN (15:57)
== END 2019-11-29 16:30 | disposition hospice, inpatient (51) | DRG 178 ==
LOC: ER 23:46 → EH 11-26 01:58 → 5 11-26 04:10 → 4N 11-27 16:24
PROVIDERS: ADMIT Internal Medicine; ATTEND Family Medicine
DX: J69.0 Pneumonitis due to inhalation of food and vomit (principal); F73 Profound intellectual disabilities; Z66 Do not resuscitate; G80.9 Cerebral palsy, unspecified; M41.9 Scoliosis, unspecified; R06.03 Acute respiratory distress; R00.0 Tachycardia, unspecified; Z93.1 Gastrostomy status; Z03.818 Encounter for observation for suspected exposure to other biological agents ruled out; K21.9 Gastro-esophageal reflux disease without esophagitis; Z51.5 Encounter for palliative care
CPT/HCPCS: 36415; 71045; 80048; 80053; 81001; 82550; 82553; 82962; 83036; 83605; 83690; 84484; 85025; 85027; 85610; 87040; 87070; 87077; 87186; 87205; 87635; 93005; 93010; 99285; J0692; J0696; J1650; J1953; J1956; J2060; J2270; J3490; J7040; J7120